=== PATIENT | male | born 1940 | race Hispanic/Latino ===

== ENCOUNTER 2017-07-27 14:07 | Outpatient (CLI) | payer MEDICARE ==
[~2017-07-27 14:07] MED LIST: FLAGYL 500 MG/100 ML 500 MG/100 ML BAG IV NR
--- NOTE | 2017-07-27 15:17 | Ultrasound Report ---
Scrotal ultrasound including Doppler interrogation. History: Scrotal pain. Findings: The testicles appear normal in size and configuration with no evidence of testicular mass. There is normal blood flow to both testes. There are bilateral hydroceles, much larger on the right. The right hydrocele measures 6 x 8 cm. The left epididymis is prominent in the region of both the head and body. Impression: 1. Enlargement of the left epididymis consistent with epididymitis. 2. Bilateral hydroceles, much larger on the right.
== END 2017-07-27 14:08 | disposition home or self-care (01) ==
LOC: US 14:07
PROVIDERS: ATTEND Urology
DX: N43.3 Hydrocele, unspecified (principal); N50.82 Scrotal pain; N50.89 Other specified disorders of the male genital organs; J44.9 Chronic obstructive pulmonary disease, unspecified; I10 Essential (primary) hypertension; Z87.891 Personal history of nicotine dependence
CPT/HCPCS: 93975

== ENCOUNTER 2017-11-03 05:07 | Inpatient (IN) | payer MEDICARE ==
[2017-11-03 05:45] LABS: Basophils % (Auto) 0.1 % (0.0-1.8); Eosinophils % (Auto) 0.3 % (0.0-4.3); Hematocrit 38.8 % (35.5-45.6); Hemoglobin 12.1 gm/dl (11.8-15.2); Mean Corpuscular HGB Conc 31 % (32-34); Mean Corpuscular Hemoglobin 27 pg (28-32); Mean Corpuscular Volume 87 fl (84-94); Platelet Count 220 K/mm3 (140-440); Red Blood Count 4.47 M/mm3 (3.65-5.03); Red Cell Distribution Width 16.8 % (13.2-15.2); White Blood Count 13.1 K/mm3 (4.5-11.0)
--- NOTE | 2017-11-03 05:52 | XRay Report ---
FINAL REPORT EXAM: XR CHEST 1V AP HISTORY: Shortness of breath TECHNIQUE: AP portable view(s) of the chest obtained. PRIORS: None. FINDINGS: No mediastinal shift. Cardiac silhouette is not enlarged. No pneumothorax or effusion. Ill-defined bibasilar opacities. No acute skeletal finding. IMPRESSION: Ill-defined bibasilar opacities may represent atelectasis or infection.
[2017-11-03] MEDS ORDERED: NACL 0.9% 500 ML 500 ML IV ONE (05:54)
[2017-11-03 06:04] LABS: Anion Gap 19 mmol/L; BUN/Creatinine Ratio 38; Blood Urea Nitrogen 23 mg/dL (9-20); Calcium 8.5 mg/dL (8.4-10.2); Carbon Dioxide 28 mmol/L (22-30); Chloride 100.1 mmol/L (98-107); Glucose 126 mg/dL (75-100); Potassium 5.1 mmol/L (3.6-5.0); Sodium 142 mmol/L (137-145)
[2017-11-03 06:17] LABS: ISTAT Base Excess 4; ISTAT HCO3 32.2; ISTAT PCO2 84.1 (35-45); ISTAT PH 7.191 (7.35-7.45); ISTAT PO2 84 (80-105); ISTAT SO2 92; ISTAT TCO2 35
[2017-11-03] MEDS ORDERED: LEVAQUIN 750MG/150ML 750 MG/150 ML BAG IV ONE (06:32)
[2017-11-03] MEDS ORDERED: NACL 0.9% 1000 ML IV ONE (06:32)
[2017-11-03] MEDS ORDERED: ARTIFICIAL TEARS OPHTH OINT OU PRN (06:33)
[2017-11-03] MEDS ORDERED: VASELINE LIP THERAPY TP PRN (06:33)
[2017-11-03] MEDS ORDERED: ATIVAN IV PRN (06:33)
[2017-11-03] MEDS ORDERED: PROVENTIL IH ONE (06:35)
[2017-11-03] MEDS ORDERED: ATROVENT IH ONE (06:35)
[2017-11-03] MEDS ORDERED: MAGNESIUM SULFATE 2GM/50ML 2 GM/50 ML BAG IV ONE (06:35)
--- NOTE | 2017-11-03 06:36 | Emergency Department Report ---
ED General Adult HPI - General Chief complaint: Dyspnea/Respdistress Stated complaint: ELAINA Time Seen by Provider: 11/03/17 06:13 Source: EMS (ems notes not available at time of chart dictation), RN notes reviewed Mode of arrival: Stretcher Limitations: Altered Mental Status, Physical Limitation - History of Present Illness Initial comments: This is a 77-year-old male from a local [place] who is brought to the hospital by EMS for respiratory distress. When this provider interviews the patient, the patient is altered, obtunded and on a BiPAP machine. His initial chest x-ray suggested pneumonia, and the patient was intubated by myself for airway protection and respiratory failure. The patient was unable to describe the qualitative nature of his symptoms, exacerbating or relieving factors. Postintubation, the patient was ventilated the lung protective strategy, and treated empirically for pulmonary sepsis. The case was presented to the ICU physician, Dr. Sharma, who agreed with placement into the intensive care unit, and presented to the hospital nurse practitioner, Aixa Brock; she accepted the patient to the medical service. -: unknown Radiation: other (as per history of present illness) Severity scale (0 -10): 3 Quality: other (as per history of present illness) Improves with: other (History of present illness) Worsens with: other (as per history of present illness) Associated Symptoms: confusion, shortness of breath, weakness, other (as per history of present illness) - Related Data Home Medications Medication Instructions Recorded Confirmed Last Taken ALPRAZolam [Xanax TAB] 0.5 mg PO TID 02/21/15 07/29/17 Unknown Gabapentin 300 mg PO BID 02/21/15 07/29/17 Unknown Methadone 10 mg PO TID 02/21/15 07/29/17 Unknown Potassium Chloride 10 meq PO QDAY 02/21/15 07/29/17 Unknown Tamsulosin 0.4 mg PO DAILY 02/21/15 07/29/17 Unknown Torsemide [Demadex] 20 mg PO DAILY 02/21/15 07/29/17 Unknown Ventolin HFA 2 puff IH PRN PRN 02/21/15 07/29/17 Unknown Verapamil ER [Calan SR] 240 mg PO DAILY 02/21/15 07/29/17 Unknown Previous Rx's Medication Instructions Recorded Last Taken Type Budesonide [Pulmicort Flexhaler] 1 inhalation IH BID #1 aer.[email or web address] 02/26/15 Unknown Rx Prednisone 10 mg PO QDAY #21 tablet 02/26/15 Unknown Rx Bisacodyl [Dulcolax suppos] 10 mg UT QDAY PRN #30 supp.rect 08/03/17 Unknown Rx Magnesium Citrate [Citrate of 300 ml PO QDAY PRN 30 Days bottle 08/03/17 Unknown Rx Magnesia] Allergies Allergy/AdvReac Type Severity Reaction Status Date / Time Penicillins Allergy Mild Itching Verified 02/21/15 18:30 doxycycline Allergy Hives Verified 11/03/17 05:18 Sulfa (Sulfonamide Allergy Hives Verified 11/03/17 05:18 Antibiotics) sulfamethoxazole Allergy Hives Verified 11/03/17 05:18 [From Bactrim] trimethoprim [From Bactrim] Allergy Hives Verified 11/03/17 05:18 ED Review of Systems ROS: Stated complaint: ELAINA Other details as noted in HPI Comment: Unobtainable due to pts medical conditions ED Past Medical Hx - Past Medical History Previous Medical History?: Yes Hx Hypertension: Yes Hx Arthritis: Yes Hx COPD: Yes Additional medical history: chronic back pain - Surgical History Past Surgical History?: Yes Hx Coronary Stent: No Hx Open Heart Surgery: No Hx Pacemaker: No Hx Internal Defibrillator: No Hx Cholecystectomy: No Hx Appendectomy: No Hx Breast Surgery: No Additional Surgical History: WES - Social History Smoking Status: Former Smoker Substance Use Type: None - Medications Home Medications: Home Medications Medication Instructions Recorded Confirmed Last Taken Type ALPRAZolam [Xanax TAB] 0.5 mg PO TID 02/21/15 07/29/17 Unknown History Gabapentin 300 mg PO BID 02/21/15 07/29/17 Unknown History Methadone 10 mg PO TID 02/21/15 07/29/17 Unknown History Potassium Chloride 10 meq PO QDAY 02/21/15 07/29/17 Unknown History Tamsulosin 0.4 mg PO DAILY 02/21/15 07/29/17 Unknown History Torsemide [Demadex] 20 mg PO DAILY 02/21/15 07/29/17 Unknown History Ventolin HFA 2 puff IH PRN PRN 02/21/15 07/29/17 Unknown History Verapamil ER [Calan SR] 240 mg PO DAILY 02/21/15 07/29/17 Unknown History Budesonide [Pulmicort Flexhaler] 1 inhalation IH BID #1 aer.pow.ba 02/26/1512/14 Unknown Rx Prednisone 10 mg PO QDAY #21 tablet 02/26/15 07/29/17 Unknown Rx Bisacodyl [Dulcolax suppos] 10 mg UT QDAY PRN #30 supp.rect 08/03/17 Unknown Rx Magnesium Citrate [Citrate of 300 ml PO QDAY PRN 30 Days bottle 08/03/17 Unknown Rx Magnesia] ED Physical Exam - General Limitations: Physical Limitation General appearance: obtunded, in distress - Head Head exam: Present: atraumatic, normocephalic - Eye Eye exam: Present: normal appearance - ENT ENT exam: Present: mucous membranes dry - Neck Neck exam: Present: normal inspection - Respiratory Respiratory exam: Present: respiratory distress, rhonchi - Cardiovascular Cardiovascular Exam: Present: normal rhythm, tachycardia, normal heart sounds. Absent: systolic murmur, diastolic murmur, rubs, gallop - GI/Abdominal GI/Abdominal exam: Present: soft, normal bowel sounds. Absent: distended, tenderness, guarding, rebound, rigid, pulsatile mass - Rectal Rectal exam: Present: deferred - exam: Present: normal inspection - Extremities Exam Extremities exam: Present: normal inspection - Back Exam Back exam: Present: normal inspection. Absent: paraspinal tenderness, vertebral tenderness - Neurological Exam Neurological exam: Present: altered - Psychiatric Psychiatric exam: Present: other (patient nonverbal) - Skin Skin exam: Present: warm, dry, intact, normal color. Absent: rash ED Course Vital Signs 11/03/17 11/03/17 11/03/17 05:14 05:15 05:18 Temperature Pulse Rate 118 H 111 H Respiratory 22 25 H Rate Blood Pressure Blood Pressure [Left] O2 Sat by Pulse 100 Oximetry 11/03/17 11/03/17 11/03/17 05:20 05:30 05:35 Temperature Pulse Rate 111 H Respiratory 25 H 14 Rate Blood Pressure 141/70 141/70 Blood Pressure [Left] O2 Sat by Pulse 96 94 99 Oximetry 11/03/17 11/03/17 11/03/17 05:45 05:46 06:00 Temperature 99 F Pulse Rate 107 H 107 H 106 H Respiratory 14 14 13 Rate Blood Pressure 127/67 127/60 Blood Pressure 141/70 [Left] O2 Sat by Pulse 98 96 Oximetry 11/03/17 11/03/17 11/03/17 06:15 06:30 06:45 Temperature Pulse Rate 104 H 107 H 117 H Respiratory 16 15 19 Rate Blood Pressure 127/60 120/62 146/71 Blood Pressure [Left] O2 Sat by Pulse 96 100 98 Oximetry 11/03/17 11/03/17 11/03/17 07:00 07:15 07:30 Temperature Pulse Rate 106 H 107 H 110 H Respiratory 18 18 18 Rate Blood Pressure 143/71 150/78 151/76 Blood Pressure [Left] O2 Sat by Pulse 99 99 97 Oximetry 11/03/17 11/03/17 11/03/17 07:45 08:00 08:15 Temperature Pulse Rate 101 H 103 H 96 H Respiratory 26 H 27 H 30 H Rate Blood Pressure 139/70 144/76 134/68 Blood Pressure [Left] O2 Sat by Pulse 98 99 100 Oximetry 11/03/17 11/03/17 08:30 08:40 Temperature 98.3 F Pulse Rate 96 H Respiratory 18 Rate Blood Pressure 140/71 Blood Pressure [Left] O2 Sat by Pulse 100 Oximetry - Reevaluation(s) Reevaluation #1: 11/03/17 09:43 Patient reassessed multiple times post intubation the ER, he has been intubated and sedated, and has been hemodynamically stable. Awaiting placement to the intensive care unit. - Intubation Time Out Performed: Yes Sedative: Ketamine Mg Given: 150 Paralytic: Rocuronium Mg Given: 100 Laryngoscope: Amarilys Size: 4 ET Tube Size: 7.5 Tube Secured Depth (cm): 24 Tube Secured Location: lips Tube Placement Confirmation: visualized tube passing t, equal breath sounds bilat, no breath sounds over epi, confirmation by capnometr Patient Tolerated Procedure: well Intubation Complications: none Additional Comments: Prior to intubation, the patient is preoxygenated with the BiPAP under my direct supervision. He is induced with ketamine, transitioned to nasal cannula , 15 L, and receives [id number] ventilation. He is then paralyzed with rocuronium, and a 7.5 endotracheal tube is inserted by myself using direct laryngoscopy, with one attempt and no obvious complications. The patient tolerated the procedure well. ED Medical Decision Making - Lab Data Result diagrams: 11/03/17 05:31 11/03/17 07:12 Vital Signs 11/03/17 11/03/17 11/03/17 05:14 05:15 05:18 Temperature Pulse Rate 118 H 111 H Respiratory 22 25 H Rate Blood Pressure Blood Pressure [Left] O2 Sat by Pulse 100 Oximetry 11/03/17 11/03/17 11/03/17 05:20 05:30 05:35 Temperature Pulse Rate 111 H Respiratory 25 H 14 Rate Blood Pressure 141/70 141/70 Blood Pressure [Left] O2 Sat by Pulse 96 94 99 Oximetry 11/03/17 11/03/17 11/03/17 05:45 05:46 06:00 Temperature 99 F Pulse Rate 107 H 107 H 106 H Respiratory 14 14 13 Rate Blood Pressure 127/67 127/60 Blood Pressure 141/70 [Left] O2 Sat by Pulse 98 96 Oximetry 11/03/17 11/03/17 11/03/17 06:15 06:30 06:45 Temperature Pulse Rate 104 H 107 H 117 H Respiratory 16 15 19 Rate Blood Pressure 127/60 120/62 146/71 Blood Pressure [Left] O2 Sat by Pulse 96 100 98 Oximetry 11/03/17 11/03/17 11/03/17 07:00 07:15 07:30 Temperature Pulse Rate 106 H 107 H 110 H Respiratory 18 18 18 Rate Blood Pressure 143/71 150/78 151/76 Blood Pressure [Left] O2 Sat by Pulse 99 99 97 Oximetry 11/03/17 11/03/17 11/03/17 07:45 08:00 08:15 Temperature Pulse Rate 101 H 103 H 96 H Respiratory 26 H 27 H 30 H Rate Blood Pressure 139/70 144/76 134/68 Blood Pressure [Left] O2 Sat by Pulse 98 99 100 Oximetry 11/03/17 11/03/17 08:30 08:40 Temperature 98.3 F Pulse Rate 96 H Respiratory 18 Rate Blood Pressure 140/71 Blood Pressure [Left] O2 Sat by Pulse 100 Oximetry Lab Results 11/03/17 11/03/17 11/03/17 Range/Units 05:31 05:31 06:10 WBC 13.1 H (4.5-11.0) K/mm3 RBC 4.47 (3.65-5.03) M/mm3 Hgb 12.1 (11.8-15.2) gm/dl Hct 38.8 (35.5-45.6) % MCV 87 (84-94) fl MCH 27 L (28-32) pg MCHC 31 L (32-34) % RDW 16.8 H (13.2-15.2) % Plt Count 220 (140-440) K/mm3 Lymph % (Auto) 8.6 L (13.4-35.0) % [place] % (Auto) 10.9 H (0.0-7.3) % Eos % (Auto) 0.3 (0.0-4.3) % Baso % (Auto) 0.1 (0.0-1.8) % Lymph # 1.1 L (1.2-5.4) K/mm3 [place] # 1.4 H (0.0-0.8) K/mm3 Eos # 0.0 (0.0-0.4) K/mm3 Baso # 0.0 (0.0-0.1) K/mm3 Seg Neutrophils % 80.1 H (40.0-70.0) % Seg Neutrophils # 10.5 H (1.8-7.7) K/mm3 PT (12.2-14.9) Sec. INR (0.87-1.13) POC ABG pH 7.191 L (7.35-7.45) POC ABG pCO2 84.1 H (35-45) POC ABG pO2 84 (80-105) POC ABG HCO3 32.2 POC ABG Total CO2 35 POC ABG O2 Sat 92 POC ABG Base Excess 4 VBG pH (7.320-7.420) FiO2 60 % Sodium 142 (137-145) mmol/L Potassium 5.1 H (3.6-5.0) mmol/L Chloride 100.1 (98-107) mmol/L Carbon Dioxide 28 (22-30) mmol/L Anion Gap 19 mmol/L BUN 23 H (9-20) mg/dL Creatinine 0.6 L (0.8-1.5) mg/dL Estimated GFR > 60 ml/min BUN/Creatinine Ratio 38 % Glucose 126 H (75-100) mg/dL Lactic Acid (0.7-2.0) mmol/L Calcium 8.5 (8.4-10.2) mg/dL Total Bilirubin (0.1-1.2) mg/dL AST (5-40) units/L ALT (7-56) units/L Alkaline Phosphatase (35-129) units/L Troponin T 0.015 (0.00-0.029) ng/mL Total Protein (6.3-8.2) g/dL Albumin (3.9-5) g/dL Albumin/Globulin Ratio % Urine Color (Yellow) Urine Turbidity (Clear) Urine pH (5.0-7.0) Ur Specific [place] (1.003-1.030) Urine Protein (Negative) mg/dL Urine Glucose (UA) (Negative) mg/dL Urine Ketones (Negative) mg/dL Urine Blood (Negative) Urine Nitrite (Negative) Urine Bilirubin (Negative) Urine Urobilinogen (<2.0) mg/dL Ur Leukocyte Esterase (Negative) Urine WBC (Auto) (0.0-6.0) /HPF Urine RBC (Auto) (0.0-6.0) /HPF U Epithel Cells (Auto) (0-13.0) /HPF Hyaline Casts /LPF Urine Mucus /HPF 11/03/17 11/03/17 11/03/17 Range/Units 07:12 07:12 07:12 WBC (4.5-11.0) K/mm3 RBC (3.65-5.03) M/mm3 Hgb (11.8-15.2) gm/dl Hct (35.5-45.6) % MCV (84-94) fl MCH (28-32) pg MCHC (32-34) % RDW (13.2-15.2) % Plt Count (140-440) K/mm3 Lymph % (Auto) (13.4-35.0) % [place] % (Auto) (0.0-7.3) % Eos % (Auto) (0.0-4.3) % Baso % (Auto) (0.0-1.8) % Lymph # (1.2-5.4) K/mm3 [place] # (0.0-0.8) K/mm3 Eos # (0.0-0.4) K/mm3 Baso # (0.0-0.1) K/mm3 Seg Neutrophils % (40.0-70.0) % Seg Neutrophils # (1.8-7.7) K/mm3 PT 13.8 (12.2-14.9) Sec. INR 1.01 (0.87-1.13) POC ABG pH (7.35-7.45) POC ABG pCO2 (35-45) POC ABG pO2 (80-105) POC ABG HCO3 POC ABG Total CO2 POC ABG O2 Sat POC ABG Base Excess VBG pH (7.320-7.420) FiO2 % Sodium 140 (137-145) mmol/L Potassium 4.8 (3.6-5.0) mmol/L Chloride 99.9 (98-107) mmol/L Carbon Dioxide 27 (22-30) mmol/L Anion Gap 18 mmol/L BUN 23 H (9-20) mg/dL Creatinine 0.6 L (0.8-1.5) mg/dL Estimated GFR > 60 ml/min BUN/Creatinine Ratio 38 % Glucose 129 H (75-100) mg/dL Lactic Acid 0.80 (0.7-2.0) mmol/L Calcium 8.4 (8.4-10.2) mg/dL Total Bilirubin 0.30 (0.1-1.2) mg/dL AST 17 (5-40) units/L ALT 12 (7-56) units/L Alkaline Phosphatase 97 (35-129) units/L Troponin T (0.00-0.029) ng/mL Total Protein 7.1 (6.3-8.2) g/dL Albumin 3.6 L (3.9-5) g/dL Albumin/Globulin Ratio 1.0 % Urine Color (Yellow) Urine Turbidity (Clear) Urine pH (5.0-7.0) Ur Specific [place] (1.003-1.030) Urine Protein (Negative) mg/dL Urine Glucose (UA) (Negative) mg/dL Urine Ketones (Negative) mg/dL Urine Blood (Negative) Urine Nitrite (Negative) Urine Bilirubin (Negative) Urine Urobilinogen (<2.0) mg/dL Ur Leukocyte Esterase (Negative) Urine WBC (Auto) (0.0-6.0) /HPF Urine RBC (Auto) (0.0-6.0) /HPF U Epithel Cells (Auto) (0-13.0) /HPF Hyaline Casts /LPF Urine Mucus /HPF 11/03/17 11/03/17 11/03/17 Range/Units 07:12 07:34 Unknown WBC (4.5-11.0) K/mm3 RBC (3.65-5.03) M/mm3 Hgb (11.8-15.2) gm/dl Hct (35.5-45.6) % MCV (84-94) fl MCH (28-32) pg MCHC (32-34) % RDW (13.2-15.2) % Plt Count (140-440) K/mm3 Lymph % (Auto) (13.4-35.0) % [place] % (Auto) (0.0-7.3) % Eos % (Auto) (0.0-4.3) % Baso % (Auto) (0.0-1.8) % Lymph # (1.2-5.4) K/mm3 [place] # (0.0-0.8) K/mm3 Eos # (0.0-0.4) K/mm3 Baso # (0.0-0.1) K/mm3 Seg Neutrophils % (40.0-70.0) % Seg Neutrophils # (1.8-7.7) K/mm3 PT (12.2-14.9) Sec. INR (0.87-1.13) POC ABG pH 7.294 L (7.35-7.45) POC ABG pCO2 65.0 H (35-45) POC ABG pO2 67 L (80-105) POC ABG HCO3 31.5 POC ABG Total CO2 33 POC ABG O2 Sat 90 POC ABG Base Excess 5 VBG pH 7.318 L (7.320-7.420) FiO2 60 % Sodium (137-145) mmol/L Potassium (3.6-5.0) mmol/L Chloride (98-107) mmol/L Carbon Dioxide (22-30) mmol/L Anion Gap mmol/L BUN (9-20) mg/dL Creatinine (0.8-1.5) mg/dL Estimated GFR ml/min BUN/Creatinine Ratio % Glucose (75-100) mg/dL Lactic Acid (0.7-2.0) mmol/L Calcium (8.4-10.2) mg/dL Total Bilirubin (0.1-1.2) mg/dL AST (5-40) units/L ALT (7-56) units/L Alkaline Phosphatase (35-129) units/L Troponin T (0.00-0.029) ng/mL Total Protein (6.3-8.2) g/dL Albumin (3.9-5) g/dL Albumin/Globulin Ratio % Urine Color Yellow (Yellow) Urine Turbidity Clear (Clear) Urine pH 5.0 (5.0-7.0) Ur Specific [place] 1.018 (1.003-1.030) Urine Protein <15 mg/dl (Negative) mg/dL Urine Glucose (UA) Neg (Negative) mg/dL Urine Ketones Tr (Negative) mg/dL Urine Blood Neg (Negative) Urine Nitrite Neg (Negative) Urine Bilirubin Neg (Negative) Urine Urobilinogen < 2.0 (<2.0) mg/dL Ur Leukocyte Esterase Neg (Negative) Urine WBC (Auto) 1.0 (0.0-6.0) /HPF Urine RBC (Auto) 1.0 (0.0-6.0) /HPF U Epithel Cells (Auto) < 1.0 (0-13.0) /HPF Hyaline Casts 1 /LPF Urine Mucus Few /HPF - EKG Data -: EKG Interpreted by In - EKG Data 11/03/17 09:42 Sinus tachycardia, 114 beats per minute, normal axis, motion artifact, not morphologically consistent with ST elevation myocardial infarction - Radiology Data Radiology results: report reviewed, image reviewed Ordering Physician: JOSE A CRUZ MD Date of Service: 11/03/17 Procedure(s): XR chest 1V ap Accession Number(s): [id number] cc: JOSE A CRUZ MD Fluoro Time In Minutes: FINAL REPORT EXAM: XR CHEST 1V AP HISTORY: intubation TECHNIQUE: AP portable view(s) of the chest obtained. PRIORS: Earlier examination of the same date. FINDINGS: Endotracheal tube terminates approximately 4-5 cm from the justin. No mediastinal shift. Cardiac silhouette is not enlarged. No pneumothorax or significant effusion. Bibasilar opacities again noted. IMPRESSION: Satisfactory appearance of endotracheal tube without pneumothorax. Transcribed By: VLADISLAV Dictated By: JOSE A SY MD Electronically Authenticated By: JOSE A SY MD Signed Date/Time: 11/03/17 0259 Critical Care Time: Yes Critical care time in (mins) excluding proc time.: 45 Critical care attestation.: If time is entered above; I have spent that time in minutes in the direct care of this critically ill patient, excluding procedure time. ED Disposition Clinical Impression: Respiratory failure Disposition: OP ADMIT IP TO THIS HOSP Is pt being admited?: Yes Condition: Critical
[2017-11-03] MEDS ORDERED: NACL 0.9% 500 ML IV SCH (07:00)
--- NOTE | 2017-11-03 07:02 | XRay Report ---
FINAL REPORT EXAM: XR CHEST 1V AP HISTORY: intubation TECHNIQUE: AP portable view(s) of the chest obtained. PRIORS: Earlier examination of the same date. FINDINGS: Endotracheal tube terminates approximately 4-5 cm from the justin. No mediastinal shift. Cardiac silhouette is not enlarged. No pneumothorax or significant effusion. Bibasilar opacities again noted. IMPRESSION: Satisfactory appearance of endotracheal tube without pneumothorax.
[2017-11-03 07:40] LABS: Bilirubin,Urine NEG (Negative); Blood,Urine NEG (Negative); Ketones,Urine TR mg/dL (Negative); Leukocyte Esterase,Urine NEG (Negative); Mucus,Urine FEW /HPF; Nitrite,Urine NEG (Negative); Protein,Urine <15 mg/dL mg/dL (Negative); Urobilinogen,Urine < 2.0 mg/dL (<2.0)
[2017-11-03] MEDS: fentaNYL DRIP Premix 2,000 MCG/100 ML BAG IV SCH ×2 (07:50→16:20)
[2017-11-03 07:55] LABS: INR 1.01 (0.87-1.13)
[2017-11-03 07:57] LABS: Alanine Aminotransferase 12 units/L (7-56); Albumin 3.6 g/dL (3.9-5); Alkaline Phosphatase 97 units/L (35-129); Anion Gap 18 mmol/L; BUN/Creatinine Ratio 38; Blood Urea Nitrogen 23 mg/dL (9-20); Calcium 8.4 mg/dL (8.4-10.2); Carbon Dioxide 27 mmol/L (22-30); Chloride 99.9 mmol/L (98-107); Glucose 129 mg/dL (75-100); Potassium 4.8 mmol/L (3.6-5.0); Sodium 140 mmol/L (137-145); Total Protein 7.1 g/dL (6.3-8.2)
[2017-11-03 08:13] LABS: ISTAT Base Excess 5; ISTAT HCO3 31.5; ISTAT PH 7.294 (7.35-7.45); ISTAT PO2 67 (80-105); ISTAT SO2 90; ISTAT TCO2 33
[2017-11-03] MEDS ORDERED: PROVENTIL IH PRN (09:10)
[2017-11-03] MEDS ORDERED: TYLENOL PO PRN (09:10)
--- NOTE | 2017-11-03 09:15 | History and Physical Report ---
<BANDAR CHOWDHURY - Last Filed: 11/03/17 13:32> History of Present Illness Date of examination: 11/03/17 Date of admission: 11/03/2017 Chief complaint: Acute respiratory failure History of present illness: Patient is a 74-year-old male from [facility] with history of hypertension OA, COPD, illicit drug use, hypertension brought to the ED via EMS for evaluation of respiratory distress. Patient is currently intubated and sedated; therefore unable to obtain detailed history. Per ER physician and charts Patient lives in local detention who is brought to the hospital by EMS for respiratory distress. Patient found to have pneumonia and COPD exacerbation unable to protect his airway.Patient intubated and placed on vent support. NO family practice of fever, syncope, trauma, seizure, no soft bowel or bladder continence was sent recent ill contacts. Past History Past Medical History: COPD, hypertension, other (OA and illicit drug us) Past Surgical History: Other (Unable to obtian due to patient's mental status ) Social history: other (Unable to obtian due to patient's mental status ) Family history: other (Unable to obtian due to patient's mental status ) Medications and Allergies Allergies Allergy/AdvReac Type Severity Reaction Status Date / Time Penicillins Allergy Mild Itching Verified 02/21/15 18:30 doxycycline Allergy Hives Verified 11/03/17 05:18 Sulfa (Sulfonamide Allergy Hives Verified 11/03/17 05:18 Antibiotics) sulfamethoxazole Allergy Hives Verified 11/03/17 05:18 [From Bactrim] trimethoprim [From Bactrim] Allergy Hives Verified 11/03/17 05:18 Home Medications Medication Instructions Recorded Confirmed Last Taken Type Prednisone 10 mg PO QDAY #21 tablet 02/26/15 11/03/17 Unknown Rx Aspirin [Adult Low Dose Aspirin EC] 81 mg PO DAILY 11/03/17 11/03/17 Unknown History Atorvastatin Calcium [Lipitor] 10 mg PO DAILY 11/03/17 11/03/17 Unknown History Benzonatate [Tessalon Perle] 100 mg PO TID 11/03/17 11/03/17 Unknown History Diphenhydramine HCl [Complete 25 mg PO Q6H PRN 11/03/17 11/03/17 Unknown History Allergy] Fluticasone [Flonase] 1 spray NS QDAY 11/03/17 11/03/17 Unknown History Furosemide [Lasix] 20 mg PO QDAY 11/03/17 11/03/17 Unknown History Gabapentin [Neurontin] 100 mg PO Q8HR 11/03/17 11/03/17 Unknown History Lisinopril [Zestril TAB] 2.5 mg PO QDAY 11/03/17 11/03/17 Unknown History Methadone [Dolophine] 20 mg PO Q8H 11/03/17 11/03/17 Unknown History Metoprolol Tartrate 25 mg PO BID 11/03/17 11/03/17 Unknown History Polyethylene Glycol 3350 [Miralax 17 gm PO QDAY 11/03/17 11/03/17 Unknown History 3350] Tamsulosin [Flomax] 0.4 mg PO QDAY 11/03/17 11/03/17 Unknown History amLODIPine [Norvasc] 5 mg PO DAILY 11/03/17 11/03/17 Unknown History Active Meds: Active Medications Acetaminophen (Tylenol) 650 mg PO Q4H PRN PRN Reason: Pain MILD(1-3)/Fever >100.5/FLANAGAN Albuterol (Proventil) 2.5 mg IH Q4HRT PRN PRN Reason: Shortness Of Breath Albuterol/Ipratropium (Duoneb *Not For Prn Use*) 1 ampul IH Q6HRT [facility] Bisacodyl (Dulcolax) 10 mg SD QDAY PRN PRN Reason: Constipation unrelieved by MOM Enoxaparin Sodium (Lovenox) 40 mg SUB-Q QDAY [facility] Hydrophilic Ointment (Vaseline Lip Therapy) 1 applic TP Q2HR PRN PRN Reason: Dry Lips Fentanyl Citrate (Fentanyl Drip Premix) 2,000 mcg in 100 mls @ 3.719 mls/hr IV TITR KRISTY; 1 MCG/KG/HR PRN Reason: Protocol Last Admin: 11/03/17 07:50 Dose: 2 mcg/kg/hr, 7.439 mls/hr Levofloxacin/Dextrose (Levaquin 750mg/150ml) 750 mg in 150 mls @ 100 mls/hr IV Q24HR KRISTY PRN Reason: Protocol Lorazepam (Ativan) 2 mg IV Q4HR PRN PRN Reason: Agitation Morphine Sulfate (Morphine) 2 mg IV Q4H PRN PRN Reason: Pain, Moderate (4-6) Multi-Ingred Cream/Lotion/Oil/Oint (Artificial Tears Ophth Oint) 1 applic OU Q4HR PRN PRN Reason: Dry Eye(s) Sodium Chloride (Nacl 0.9% 500 Ml) 1 ml IV DIRECT KRISTY Review of Systems ROS unobtainable: due to mental status (Unable to obtian due to patient's mental status ) Exam - Constitutional Vitals: Temp Pulse Resp BP Pulse Ox 98.3 F 96 H 18 140/71 100 11/03/17 08:40 11/03/17 08:30 11/03/17 08:30 11/03/17 08:30 11/03/17 08:30 General appearance: Present: no acute distress - EENT Eyes: Present: PERRL ENT: hearing intact - Neck Neck: Present: supple - Respiratory Respiratory effort: normal Respiratory: bilateral: rhonchi, wheezing - Cardiovascular Rhythm: regular Heart Sounds: Present: S1 & S2 - Abdominal General gastrointestinal: Present: soft, non-tender Male genitourinary: Present: deferred - Rectal Rectal Exam: deferred - Integumentary Integumentary: Present: clear, warm, dry - Musculoskeletal Musculoskeletal: strength equal bilaterally - Psychiatric Psychiatric: appropriate mood/affect - Neurologic Neurologic: moves all extremities - Allied Health Allied health notes reviewed: nursing Results - Labs CBC & Chem 7: 11/03/17 05:31 11/03/17 07:12 Labs: Laboratory Last Values WBC 13.1 K/mm3 (4.5-11.0) H 11/03/17 05:31 RBC 4.47 M/mm3 (3.65-5.03) 11/03/17 05:31 Hgb 12.1 gm/dl (11.8-15.2) 11/03/17 05:31 Hct 38.8 % (35.5-45.6) 11/03/17 05:31 MCV 87 fl (84-94) 11/03/17 05:31 MCH 27 pg (28-32) L 11/03/17 05:31 MCHC 31 % (32-34) L 11/03/17 05:31 RDW 16.8 % (13.2-15.2) H 11/03/17 05:31 Plt Count 220 K/mm3 (140-440) 11/03/17 05:31 Lymph % (Auto) 8.6 % (13.4-35.0) L 11/03/17 05:31 [place] % (Auto) 10.9 % (0.0-7.3) H 11/03/17 05:31 Eos % (Auto) 0.3 % (0.0-4.3) 11/03/17 05:31 Baso % (Auto) 0.1 % (0.0-1.8) 11/03/17 05:31 Lymph # 1.1 K/mm3 (1.2-5.4) L 11/03/17 05:31 [place] # 1.4 K/mm3 (0.0-0.8) H 11/03/17 05:31 Eos # 0.0 K/mm3 (0.0-0.4) 11/03/17 05:31 Baso # 0.0 K/mm3 (0.0-0.1) 11/03/17 05:31 Seg Neutrophils % 80.1 % (40.0-70.0) H 11/03/17 05:31 Seg Neutrophils # 10.5 K/mm3 (1.8-7.7) H 11/03/17 05:31 PT 13.8 Sec. (12.2-14.9) 11/03/17 07:12 INR 1.01 (0.87-1.13) 11/03/17 07:12 POC ABG pH 7.294 (7.35-7.45) L 11/03/17 07:34 POC ABG pCO2 65.0 (35-45) H 11/03/17 07:34 POC ABG pO2 67 (80-105) L 11/03/17 07:34 POC ABG HCO3 31.5 11/03/17 07:34 POC ABG Total CO2 33 11/03/17 07:34 POC ABG O2 Sat 90 11/03/17 07:34 POC ABG Base Excess 5 11/03/17 07:34 VBG pH 7.318 (7.320-7.420) L 11/03/17 07:12 FiO2 60 % 11/03/17 07:34 Sodium 140 mmol/L (137-145) 11/03/17 07:12 Potassium 4.8 mmol/L (3.6-5.0) 11/03/17 07:12 Chloride 99.9 mmol/L (98-107) 11/03/17 07:12 Carbon Dioxide 27 mmol/L (22-30) 11/03/17 07:12 Anion Gap 18 mmol/L 11/03/17 07:12 BUN 23 mg/dL (9-20) H 11/03/17 07:12 Creatinine 0.6 mg/dL (0.8-1.5) L 11/03/17 07:12 Estimated GFR > 60 ml/min 11/03/17 07:12 BUN/Creatinine Ratio 38 % 11/03/17 07:12 Glucose 129 mg/dL (75-100) H 11/03/17 07:12 Lactic Acid 0.80 mmol/L (0.7-2.0) 11/03/17 07:12 Calcium 8.4 mg/dL (8.4-10.2) 11/03/17 07:12 Total Bilirubin 0.30 mg/dL (0.1-1.2) 11/03/17 07:12 AST 17 units/L (5-40) 11/03/17 07:12 ALT 12 units/L (7-56) 11/03/17 07:12 Alkaline Phosphatase 97 units/L (35-129) 11/03/17 07:12 Troponin T 0.015 ng/mL (0.00-0.029) 11/03/17 05:31 Total Protein 7.1 g/dL (6.3-8.2) 11/03/17 07:12 Albumin 3.6 g/dL (3.9-5) L 11/03/17 07:12 Albumin/Globulin Ratio 1.0 % 11/03/17 07:12 Urine Color Yellow (Yellow) 11/03/17 Unknown Urine Turbidity Clear (Clear) 11/03/17 Unknown Urine pH 5.0 (5.0-7.0) 11/03/17 Unknown Ur Specific [place] 1.018 (1.003-1.030) 11/03/17 Unknown Urine Protein <15 mg/dl mg/dL (Negative) 11/03/17 Unknown Urine Glucose (UA) Neg mg/dL (Negative) 11/03/17 Unknown Urine Ketones Tr mg/dL (Negative) 11/03/17 Unknown Urine Blood Neg (Negative) 11/03/17 Unknown Urine Nitrite Neg (Negative) 11/03/17 Unknown Urine Bilirubin Neg (Negative) 11/03/17 Unknown Urine Urobilinogen < 2.0 mg/dL (<2.0) 11/03/17 Unknown Ur Leukocyte Esterase Neg (Negative) 11/03/17 Unknown Urine WBC (Auto) 1.0 /HPF (0.0-6.0) 11/03/17 Unknown Urine RBC (Auto) 1.0 /HPF (0.0-6.0) 11/03/17 Unknown U Epithel Cells (Auto) < 1.0 /HPF (0-13.0) 11/03/17 Unknown Hyaline Casts 1 /LPF 11/03/17 Unknown Urine Mucus Few /HPF 11/03/17 Unknown - Imaging and Cardiology Chest x-ray: image reviewed (Bibasilar opacities ) Assessment and Plan Assessment and plan: Patient is a 74-year-old male from [facility] with history of hypertension OA, COPD, illicit drug use, hypertension brought to the ED via EMS for evaluation of respiratory distress. Acute respiratory failure with hypoxia Intubated and sedated. No acute respiratory distress noted. Aggressive Nebulizers/Inhalers ABG when necessary Managed By Pulmonary Supportive care Sepsis due to Pneumonia Blood and urine culture collected prior to antibiotic Follow blood cultures Initiated empiric IV Levaquin Supportive care Suspected aspiration Pneumonia Urine culture collected Initiated empiric empiric IV Levaquin Acute COPD exacerbation Continue on Duoneb every 6 hours IV steroid Solumedrol Initiated empiric IV Levaquin Oxygen as necessary Hypertensive urgency Hold home antihypertensive medications for now IV hydralazin for SBP>160 Closely monitor blood pressure Malnutrition Nutrition consult DVT prophylaxis Heparin Advance Directives: Yes VTE prophylaxis?: Chemical Contraindication Mechanical VTE Prophylaxis: Treatment Not Indicated Plan of care discussed with patient/family: Yes <CLIVE AGUAYO - Last Filed: 11/03/17 13:37> History of Present Illness Date of admission: 11/03/17 09:10 Medications and Allergies Active Meds: Active Medications Acetaminophen (Tylenol) 650 mg PO Q4H PRN PRN Reason: Pain MILD(1-3)/Fever >100.5/FLANAGAN Albuterol (Proventil) 2.5 mg IH Q4HRT PRN PRN Reason: Shortness Of Breath Albuterol/Ipratropium (Duoneb *Not For Prn Use*) 1 ampul IH Q6HRT [facility] Arformoterol Tartrate (Brovana Nebu) 15 mcg IH Q12HRT [facility] Bisacodyl (Dulcolax) 10 mg SD QDAY PRN PRN Reason: Constipation unrelieved by MOM Budesonide (Pulmicort) 0.5 mg IH Q12HRT [facility] Enoxaparin Sodium (Lovenox) 40 mg SUB-Q QDAY [facility] Last Admin: 11/03/17 12:42 Dose: 40 mg Hydrophilic Ointment (Vaseline Lip Therapy) 1 applic TP Q2HR PRN PRN Reason: Dry Lips Fentanyl Citrate (Fentanyl Drip Premix) 2,000 mcg in 100 mls @ 3.719 mls/hr IV TITR KRISTY; 1 MCG/KG/HR PRN Reason: Protocol Last Admin: 11/03/17 07:50 Dose: 2 mcg/kg/hr, 7.439 mls/hr Levofloxacin/Dextrose (Levaquin 750mg/150ml) 750 mg in 150 mls @ 100 mls/hr IV Q24HR [facility] PRN Reason: Protocol Sodium Chloride (Nacl 0.9% 1000 Ml) 1,000 mls @ 75 mls/hr IV DIRECT KRISTY Last Admin: 11/03/17 12:40 Dose: 75 mls/hr Propofol (Diprivan 10 Mg/Ml) 1,000 mg in 100 mls @ 2.232 mls/hr IV TITR KRISTY; 5 MCG/KG/MIN PRN Reason: Protocol Lorazepam (Ativan) 2 mg IV Q4HR PRN PRN Reason: Agitation Last Admin: 11/03/17 10:19 Dose: 2 mg Methylprednisolone Sodium Succinate (Solu-Medrol) 60 mg IV Q6HR [facility] Morphine Sulfate (Morphine) 2 mg IV Q4H PRN PRN Reason: Pain, Moderate (4-6) Last Admin: 11/03/17 12:42 Dose: 2 mg Multi-Ingred Cream/Lotion/Oil/Oint (Artificial Tears Ophth Oint) 1 applic OU Q4HR PRN PRN Reason: Dry Eye(s) Sodium Chloride (Nacl 0.9% 500 Ml) 1 ml IV DIRECT KRISTY Exam - Constitutional Vitals: Temp Pulse Resp BP Pulse Ox 98.3 F 109 H 17 149/78 97 11/03/17 08:40 11/03/17 13:15 11/03/17 13:15 11/03/17 13:15 11/03/17 12:30 Results - Labs CBC & Chem 7: 11/03/17 05:31 11/03/17 07:12 Labs: Laboratory Last Values WBC 13.1 K/mm3 (4.5-11.0) H 11/03/17 05:31 RBC 4.47 M/mm3 (3.65-5.03) 11/03/17 05:31 Hgb 12.1 gm/dl (11.8-15.2) 11/03/17 05:31 Hct 38.8 % (35.5-45.6) 11/03/17 05:31 MCV 87 fl (84-94) 11/03/17 05:31 MCH 27 pg (28-32) L 11/03/17 05:31 MCHC 31 % (32-34) L 11/03/17 05:31 RDW 16.8 % (13.2-15.2) H 11/03/17 05:31 Plt Count 220 K/mm3 (140-440) 11/03/17 05:31 Lymph % (Auto) 8.6 % (13.4-35.0) L 11/03/17 05:31 [place] % (Auto) 10.9 % (0.0-7.3) H 11/03/17 05:31 Eos % (Auto) 0.3 % (0.0-4.3) 11/03/17 05:31 Baso % (Auto) 0.1 % (0.0-1.8) 11/03/17 05:31 Lymph # 1.1 K/mm3 (1.2-5.4) L 11/03/17 05:31 [place] # 1.4 K/mm3 (0.0-0.8) H 11/03/17 05:31 Eos # 0.0 K/mm3 (0.0-0.4) 11/03/17 05:31 Baso # 0.0 K/mm3 (0.0-0.1) 11/03/17 05:31 Seg Neutrophils % 80.1 % (40.0-70.0) H 11/03/17 05:31 Seg Neutrophils # 10.5 K/mm3 (1.8-7.7) H 11/03/17 05:31 PT 13.8 Sec. (12.2-14.9) 11/03/17 07:12 INR 1.01 (0.87-1.13) 11/03/17 07:12 POC ABG pH 7.344 (7.35-7.45) L 11/03/17 11:50 POC ABG pCO2 53.7 (35-45) H 11/03/17 11:50 POC ABG pO2 83 (80-105) 11/03/17 11:50 POC ABG HCO3 29.2 11/03/17 11:50 POC ABG Total CO2 31 11/03/17 11:50 POC ABG O2 Sat 95 11/03/17 11:50 POC ABG Base Excess 4 11/03/17 11:50 VBG pH 7.318 (7.320-7.420) L 11/03/17 07:12 FiO2 60 % 11/03/17 11:50 Sodium 140 mmol/L (137-145) 11/03/17 07:12 Potassium 4.8 mmol/L (3.6-5.0) 11/03/17 07:12 Chloride 99.9 mmol/L (98-107) 11/03/17 07:12 Carbon Dioxide 27 mmol/L (22-30) 11/03/17 07:12 Anion Gap 18 mmol/L 11/03/17 07:12 BUN 23 mg/dL (9-20) H 11/03/17 07:12 Creatinine 0.6 mg/dL (0.8-1.5) L 11/03/17 07:12 Estimated GFR > 60 ml/min 11/03/17 07:12 BUN/Creatinine Ratio 38 % 11/03/17 07:12 Glucose 129 mg/dL (75-100) H 11/03/17 07:12 Lactic Acid 0.90 mmol/L (0.7-2.0) 11/03/17 09:30 Calcium 8.4 mg/dL (8.4-10.2) 11/03/17 07:12 Total Bilirubin 0.30 mg/dL (0.1-1.2) 11/03/17 07:12 AST 17 units/L (5-40) 11/03/17 07:12 ALT 12 units/L (7-56) 11/03/17 07:12 Alkaline Phosphatase 97 units/L (35-129) 11/03/17 07:12 Troponin T 0.015 ng/mL (0.00-0.029) 11/03/17 05:31 Total Protein 7.1 g/dL (6.3-8.2) 11/03/17 07:12 Albumin 3.6 g/dL (3.9-5) L 11/03/17 07:12 Albumin/Globulin Ratio 1.0 % 11/03/17 07:12 Urine Color Yellow (Yellow) 11/03/17 Unknown Urine Turbidity Clear (Clear) 11/03/17 Unknown Urine pH 5.0 (5.0-7.0) 11/03/17 Unknown Ur Specific [place] 1.018 (1.003-1.030) 11/03/17 Unknown Urine Protein <15 mg/dl mg/dL (Negative) 11/03/17 Unknown Urine Glucose (UA) Neg mg/dL (Negative) 11/03/17 Unknown Urine Ketones Tr mg/dL (Negative) 11/03/17 Unknown Urine Blood Neg (Negative) 11/03/17 Unknown Urine Nitrite Neg (Negative) 11/03/17 Unknown Urine Bilirubin Neg (Negative) 11/03/17 Unknown Urine Urobilinogen < 2.0 mg/dL (<2.0) 11/03/17 Unknown Ur Leukocyte Esterase Neg (Negative) 11/03/17 Unknown Urine WBC (Auto) 1.0 /HPF (0.0-6.0) 11/03/17 Unknown Urine RBC (Auto) 1.0 /HPF (0.0-6.0) 11/03/17 Unknown U Epithel Cells (Auto) < 1.0 /HPF (0-13.0) 11/03/17 Unknown Hyaline Casts 1 /LPF 11/03/17 Unknown Urine Mucus Few /HPF 11/03/17 Unknown Assessment and Plan Assessment and plan: I saw and evaluated the patient. I agree with the findings and the plan of care as documented in the Nurse Practitioner's~note, EMS tried bipap and patient failed, requiring intubation by Dr. Ferraro.
[2017-11-03] MEDS ORDERED: DULCOLAX PR PRN (10:00)
[2017-11-03 11:56] LABS: ISTAT Base Excess 4; ISTAT HCO3 29.2; ISTAT PCO2 53.7 (35-45); ISTAT PH 7.344 (7.35-7.45); ISTAT PO2 83 (80-105); ISTAT SO2 95; ISTAT TCO2 31
[2017-11-03] MEDS ORDERED: ZEMURON IV ONE (12:02)
[2017-11-03] MEDS ORDERED: KETALAR ONE (12:02)
--- NOTE | 2017-11-03 12:25 | Consultation ---
History of Present Illness Consult date: 11/03/17 Requesting physician: JOSE A CRUZ Reason for consult: COPD, other (acute respiratory failure) History of present illness: 77 y/o male with known COPD, on bipap therapy but I do not know the frequency, brought in via EMS for acute respiratory failure. Per ED, he was obtunded, so intubated for airway protection. CXR was concerning pneumonia so started on abx therapy. Currently on steroids and neb treatments, short acting. Past History Past Medical History: COPD, hypertension, other (OA and illicit drug us) Past Surgical History: Other (Unable to obtian due to patient's mental status ) Social history: other (Unable to obtian due to patient's mental status ) Family history: other (Unable to obtian due to patient's mental status ) Medications and Allergies Allergies Allergy/AdvReac Type Severity Reaction Status Date / Time Penicillins Allergy Mild Itching Verified 02/21/15 18:30 doxycycline Allergy Hives Verified 11/03/17 05:18 Sulfa (Sulfonamide Allergy Hives Verified 11/03/17 05:18 Antibiotics) sulfamethoxazole Allergy Hives Verified 11/03/17 05:18 [From Bactrim] trimethoprim [From Bactrim] Allergy Hives Verified 11/03/17 05:18 Home Medications Medication Instructions Recorded Confirmed Last Taken Type Prednisone 10 mg PO QDAY #21 tablet 02/26/15 11/03/17 Unknown Rx Aspirin [Adult Low Dose Aspirin EC] 81 mg PO DAILY 11/03/17 11/03/17 Unknown History Atorvastatin Calcium [Lipitor] 10 mg PO DAILY 11/03/17 11/03/17 Unknown History Benzonatate [Tessalon Perle] 100 mg PO TID 11/03/17 11/03/17 Unknown History Diphenhydramine HCl [Complete 25 mg PO Q6H PRN 11/03/17 11/03/17 Unknown History Allergy] Fluticasone [Flonase] 1 spray NS QDAY 11/03/17 11/03/17 Unknown History Furosemide [Lasix] 20 mg PO QDAY 11/03/17 11/03/17 Unknown History Gabapentin [Neurontin] 100 mg PO Q8HR 11/03/17 11/03/17 Unknown History Lisinopril [Zestril TAB] 2.5 mg PO QDAY 11/03/17 11/03/17 Unknown History Methadone [Dolophine] 20 mg PO Q8H 11/03/17 11/03/17 Unknown History Metoprolol Tartrate 25 mg PO BID 11/03/17 11/03/17 Unknown History Polyethylene Glycol 3350 [Miralax 17 gm PO QDAY 11/03/17 11/03/17 Unknown History 3350] Tamsulosin [Flomax] 0.4 mg PO QDAY 11/03/17 11/03/17 Unknown History amLODIPine [Norvasc] 5 mg PO DAILY 11/03/17 11/03/17 Unknown History Active Meds: Active Medications Acetaminophen (Tylenol) 650 mg PO Q4H PRN PRN Reason: Pain MILD(1-3)/Fever >100.5/FLANAGAN Albuterol (Proventil) 2.5 mg IH Q4HRT PRN PRN Reason: Shortness Of Breath Albuterol/Ipratropium (Duoneb *Not For Prn Use*) 1 ampul IH Q6HRT [facility] Arformoterol Tartrate (Brovana Nebu) 15 mcg IH Q12HRT [facility] Bisacodyl (Dulcolax) 10 mg ME QDAY PRN PRN Reason: Constipation unrelieved by MOM Budesonide (Pulmicort) 0.5 mg IH Q12HRT [facility] Enoxaparin Sodium (Lovenox) 40 mg SUB-Q QDAY [facility] Hydrophilic Ointment (Vaseline Lip Therapy) 1 applic TP Q2HR PRN PRN Reason: Dry Lips Fentanyl Citrate (Fentanyl Drip Premix) 2,000 mcg in 100 mls @ 3.719 mls/hr IV TITR KRISTY; 1 MCG/KG/HR PRN Reason: Protocol Last Admin: 11/03/17 07:50 Dose: 2 mcg/kg/hr, 7.439 mls/hr Levofloxacin/Dextrose (Levaquin 750mg/150ml) 750 mg in 150 mls @ 100 mls/hr IV Q24HR K[facility]STY PRN Reason: Protocol Sodium Chloride (Nacl 0.9% 1000 Ml) 1,000 mls @ 75 mls/hr IV DIRECT KRISTY Lorazepam (Ativan) 2 mg IV Q4HR PRN PRN Reason: Agitation Last Admin: 11/03/17 10:19 Dose: 2 mg Methylprednisolone Sodium Succinate (Solu-Medrol) 60 mg IV Q6HR [facility] Morphine Sulfate (Morphine) 2 mg IV Q4H PRN PRN Reason: Pain, Moderate (4-6) Multi-Ingred Cream/Lotion/Oil/Oint (Artificial Tears Ophth Oint) 1 applic OU Q4HR PRN PRN Reason: Dry Eye(s) Sodium Chloride (Nacl 0.9% 500 Ml) 1 ml IV DIRECT KRISTY Physical Examination Vital signs: Vital Signs Resp 22 11/03/17 05:14 Results - Laboratory Findings CBC and BMP: 11/03/17 05:31 11/03/17 07:12 ABG POC ABG pH 7.344 (7.35-7.45) L 11/03/17 11:50 POC ABG pCO2 53.7 (35-45) H 11/03/17 11:50 POC ABG pO2 83 (80-105) 11/03/17 11:50 POC ABG HCO3 29.2 11/03/17 11:50 POC ABG Total CO2 31 11/03/17 11:50 POC ABG O2 Sat 95 11/03/17 11:50 PT/INR, D-dimer PT 13.8 Sec. (12.2-14.9) 11/03/17 07:12 INR 1.01 (0.87-1.13) 11/03/17 07:12 Abnormal lab findings: Abnormal Labs 11/03/17 11/03/17 11/03/17 05:31 05:31 06:10 WBC 13.1 H MCH 27 L MCHC 31 L RDW 16.8 H Lymph % (Auto) 8.6 L [place] % (Auto) 10.9 H Lymph # 1.1 L [place] # 1.4 H Seg Neutrophils % 80.1 H Seg Neutrophils # 10.5 H POC ABG pH 7.191 L POC ABG pCO2 84.1 H POC ABG pO2 VBG pH Potassium 5.1 H BUN 23 H Creatinine 0.6 L Glucose 126 H Albumin 11/03/17 11/03/17 11/03/17 07:12 07:12 07:34 WBC MCH MCHC RDW Lymph % (Auto) [place] % (Auto) Lymph # [place] # Seg Neutrophils % Seg Neutrophils # POC ABG pH 7.294 L POC ABG pCO2 65.0 H POC ABG pO2 67 L VBG pH 7.318 L Potassium BUN 23 H Creatinine 0.6 L Glucose 129 H Albumin 3.6 L 11/03/17 11:50 WBC MCH MCHC RDW Lymph % (Auto) [place] % (Auto) Lymph # [place] # Seg Neutrophils % Seg Neutrophils # POC ABG pH 7.344 L POC ABG pCO2 53.7 H POC ABG pO2 VBG pH Potassium BUN Creatinine Glucose Albumin Assessment and Plan 77 y/o male with acute on chronic respiratory failure, copd exacerbation, thought secondary to pneumonia. 1. Change steroids to 60q6 2. Added BID pulmicort and brovana 3. Continue scheduled short acting nebs for next 24 hours 4. Ok with current abx regimen 5. Sedation to a Rider of 2 or RASS of 0 6. DVT and GI prophylaxis Thank you for this consult, will continue to follow along with you. CCT 31 minutes
[2017-11-03] MEDS: NACL 0.9% 1000 ML 1,000 ML IV SCH (12:40)
[2017-11-03] MEDS: MORPHINE IV PRN (12:42)
[2017-11-03] MEDS: LOVENOX SUB-Q SCH (12:42)
[2017-11-03] MEDS ORDERED: ATIVAN IV ONE (13:24)
[2017-11-03] MEDS ORDERED: DIPRIVAN 10 MG/ML 1,000 MG/100 ML BOTTLE IV SCH (14:00)
[2017-11-03] MEDS: DUONEB *Not for PRN Use IH SCH ×2 (15:48→20:07)
[2017-11-03] MEDS: BROVANA NEBU IH SCH ×2 (15:49→20:06)
[2017-11-03] MEDS: PULMICORT IH SCH ×2 (15:49→20:06)
--- NOTE | 2017-11-03 16:20 | XRay Report ---
FINAL REPORT PROCEDURE: XR CHEST 1V AP 18:46 p.m. TECHNIQUE: Chest radiograph anteroposterior view. CPT 42346 HISTORY: line placement COMPARISON: 11/03/2017 11:53 a.m. FINDINGS: Heart: Top-normal heart size. Mediastinum/Vessels: Mild congestion with cephalization of flow. Lungs/Pleural space: Patchy airspace process in the lower lung zones. Elevation of the hemidiaphragms.. Bony thorax: No acute osseous abnormality. Life support devices: Endotracheal tube stable in position. Tracheal bifurcation not well delineated however the tip could be above this level of approximately in the 4 centimeter range. NG tube along the esophagus terminating left upper quadrant area of the fundus. IMPRESSION: Endotracheal tube and NG tube as described. Lower lung zone infiltrates and or atelectasis
[2017-11-04] MEDS: DUONEB *Not for PRN Use IH SCH ×3 (02:30→15:10)
--- NOTE | 2017-11-04 03:13 | XRay Report ---
FINAL REPORT EXAM: XR CHEST 1V AP HISTORY: follow up respiratory failure COMPARISON: November 03, 2017 FINDINGS: Frontal view(s) of the chest obtained. Heart normal in size. ETT and NG tube remain in place. Stable patchy opacities at the lung bases and small effusions. No pneumothorax. IMPRESSION: No change from prior study. Stable patchy opacities at the lung bases and small effusions. Lines and tubes are unchanged.
[2017-11-04 05:21] LABS: Hemoglobin 10.6 gm/dl (11.8-15.2); Mean Corpuscular HGB Conc 32 % (32-34); Mean Corpuscular Hemoglobin 27 pg (28-32); Mean Corpuscular Volume 84 fl (84-94); Platelet Count 193 K/mm3 (140-440); Red Blood Count 3.93 M/mm3 (3.65-5.03); Red Cell Distribution Width 16.4 % (13.2-15.2)
[2017-11-04 05:32] LABS: Anion Gap 16 mmol/L; BUN/Creatinine Ratio 42; Blood Urea Nitrogen 21 mg/dL (9-20); Calcium 8.3 mg/dL (8.4-10.2); Carbon Dioxide 27 mmol/L (22-30); Chloride 103.6 mmol/L (98-107); Glucose 141 mg/dL (75-100); Potassium 4.4 mmol/L (3.6-5.0); Sodium 142 mmol/L (137-145)
[2017-11-04 06:15] LABS: ISTAT Base Excess 6; ISTAT HCO3 31.6; ISTAT PH 7.376 (7.35-7.45); ISTAT PO2 93 (80-105); ISTAT SO2 97; ISTAT TCO2 33
[2017-11-04 07:08] LABS: Basophils % (Manual) 0 % (0.0-1.8); Blastocytes % (Manual) 0 %; Eosinophils % (Manual) 0 % (0.0-4.3)
[2017-11-04 07:09] LABS: Anisocytosis 1+; Diff Status Complete; Hypochromasia 1+; Ovalocytes Few
[2017-11-04] MEDS: PULMICORT IH SCH (08:23)
[2017-11-04] MEDS: BROVANA NEBU IH SCH (08:23)
[2017-11-04 10:28] LABS: ISTAT Base Excess 5; ISTAT HCO3 30.6; ISTAT PH 7.369 (7.35-7.45); ISTAT PO2 67 (80-105); ISTAT SO2 92; ISTAT TCO2 32
[2017-11-04] MEDS: LEVAQUIN 750MG/150ML 750 MG/150 ML BAG IV SCH (10:43)
[2017-11-04] MEDS: LOVENOX SUB-Q SCH (10:44)
--- NOTE | 2017-11-04 11:23 | Progress Note ---
Assessment and Plan 77 y/o male with acute on chronic respiratory failure, copd exacerbation, thought secondary to pneumonia. 1. Continue steroids at 60q6 2. Continue pulmicort and brovana 3. Continue scheduled short acting nebs for 24 more hours 4. Ok with current abx regimen 5. Stop sedation 6. Attempt extubation and order bipap prn. 7. Will give a one time dose of IV lasix 10mg Thank you for this consult, will continue to follow along with you. CCT 31 minutes Subjective Date of service: 11/04/17 Interval history: Awake and alert. Follows commands. On PSV 09/01 Objective Vital Signs - 12hr 11/03/17 11/03/17 11/03/17 23:20 23:30 23:46 Pulse Rate 84 78 77 Pulse Rate [ Anterior Bilateral Throughout] Respiratory 18 18 18 Rate Respiratory Rate [Anterior Bilateral Throughout] Blood Pressure 124/61 117/57 117/57 O2 Sat by Pulse 95 96 96 Oximetry 11/04/17 11/04/17 11/04/17 00:00 00:15 00:16 Pulse Rate 77 92 H 79 Pulse Rate [ Anterior Bilateral Throughout] Respiratory 18 18 Rate Respiratory Rate [Anterior Bilateral Throughout] Blood Pressure 114/57 114/57 114/57 O2 Sat by Pulse 96 95 96 Oximetry 11/04/17 11/04/17 11/04/17 00:30 00:46 01:00 Pulse Rate 99 H 94 H 90 Pulse Rate [ Anterior Bilateral Throughout] Respiratory 19 20 13 Rate Respiratory Rate [Anterior Bilateral Throughout] Blood Pressure 114/57 134/74 134/74 O2 Sat by Pulse 94 95 96 Oximetry 11/04/17 11/04/17 11/04/17 01:16 01:30 01:46 Pulse Rate 84 78 74 Pulse Rate [ Anterior Bilateral Throughout] Respiratory 18 18 18 Rate Respiratory Rate [Anterior Bilateral Throughout] Blood Pressure 124/71 110/60 110/60 O2 Sat by Pulse 96 96 95 Oximetry 11/04/17 11/04/17 11/04/17 02:00 02:16 02:30 Pulse Rate 73 71 86 Pulse Rate [ 71 Anterior Bilateral Throughout] Respiratory 18 18 17 Rate Respiratory 18 Rate [Anterior Bilateral Throughout] Blood Pressure 117/60 117/60 115/62 O2 Sat by Pulse 97 97 96 Oximetry 11/04/17 11/04/17 11/04/17 02:40 02:46 03:00 Pulse Rate 73 83 Pulse Rate [ 74 Anterior Bilateral Throughout] Respiratory 18 18 Rate Respiratory 18 Rate [Anterior Bilateral Throughout] Blood Pressure 115/62 97/67 O2 Sat by Pulse 97 97 Oximetry 11/04/17 11/04/17 11/04/17 06:01 07:49 09:09 Pulse Rate 83 78 Pulse Rate [ Anterior Bilateral Throughout] Respiratory 22 Rate Respiratory Rate [Anterior Bilateral Throughout] Blood Pressure 125/62 127/62 O2 Sat by Pulse 97 96 100 Oximetry Constitutional: no acute distress, alert Eyes: non-icteric ENT: other (orally intubated, not sedated) Neck: supple Effort: normal Ascultation: Bilateral: diminished breath sounds, wheezes Percussion: Bilateral: not dull Cardiovascular: regular rate and rhythm Gastrointestinal: normoactive bowel sounds, soft Integumentary: other Extremities: other Neurologic: normal mental status Psychiatric: mood appropriate CBC and BMP: 11/04/17 04:29 11/04/17 04:29 ABG, PT/INR, D-dimer: ABG POC ABG pH 7.369 (7.35-7.45) 11/04/17 10:25 POC ABG pCO2 53.0 (35-45) H 11/04/17 10:25 POC ABG pO2 67 (80-105) L 11/04/17 10:25 POC ABG HCO3 30.6 11/04/17 10:25 POC ABG Total CO2 32 11/04/17 10:25 POC ABG O2 Sat 92 11/04/17 10:25 PT/INR, D-dimer PT 13.8 Sec. (12.2-14.9) 11/03/17 07:12 INR 1.01 (0.87-1.13) 11/03/17 07:12 Abnormal lab findings: Abnormal Labs 11/03/17 11/03/17 11/03/17 05:31 05:31 06:10 WBC 13.1 H Hgb Hct MCH 27 L MCHC 31 L RDW 16.8 H Lymph % (Auto) 8.6 L [place] % (Auto) 10.9 H Lymph # 1.1 L [place] # 1.4 H Seg Neutrophils % 80.1 H Lymphocytes % (Manual) Seg Neutrophils # 10.5 H Lymphocytes # (Manual) POC ABG pH 7.191 L POC ABG pCO2 84.1 H POC ABG pO2 VBG pH Potassium 5.1 H BUN 23 H Creatinine 0.6 L Glucose 126 H Calcium Albumin 11/03/17 11/03/17 11/03/17 07:12 07:12 07:34 WBC Hgb Hct MCH MCHC RDW Lymph % (Auto) [place] % (Auto) Lymph # [place] # Seg Neutrophils % Lymphocytes % (Manual) Seg Neutrophils # Lymphocytes # (Manual) POC ABG pH 7.294 L POC ABG pCO2 65.0 H POC ABG pO2 67 L VBG pH 7.318 L Potassium BUN 23 H Creatinine 0.6 L Glucose 129 H Calcium Albumin 3.6 L 11/03/17 11/04/17 11/04/17 11:50 04:29 04:29 WBC Hgb 10.6 L Hct 33.0 L MCH 27 L MCHC RDW 16.4 H Lymph % (Auto) [place] % (Auto) Lymph # [place] # Seg Neutrophils % Lymphocytes % (Manual) 7.0 L Seg Neutrophils # Lymphocytes # (Manual) 0.5 L POC ABG pH 7.344 L POC ABG pCO2 53.7 H POC ABG pO2 VBG pH Potassium BUN 21 H Creatinine 0.5 L Glucose 141 H Calcium 8.3 L Albumin 11/04/17 11/04/17 06:07 10:25 WBC Hgb Hct MCH MCHC RDW Lymph % (Auto) [place] % (Auto) Lymph # [place] # Seg Neutrophils % Lymphocytes % (Manual) Seg Neutrophils # Lymphocytes # (Manual) POC ABG pH POC ABG pCO2 54.0 H 53.0 H POC ABG pO2 67 L VBG pH Potassium BUN Creatinine Glucose Calcium Albumin Chest x-ray: image reviewed (chronic interstitial changes with small bilateral effusions.)
[2017-11-04] MEDS ORDERED: LASIX IV ONE (11:25)
--- NOTE | 2017-11-04 16:19 | Progress Note ---
Assessment and Plan Assessment and plan: Patient is a 74-year-old man from [facility] with history of hypertension OA, COPD, chronic pain syndrome and hypertension presented to ED via EMS for evaluation of respiratory distress/ams. Acute respiratory failure with hypoxia Intubated upon admission and extubated next day Aggressive Nebulizers/Inhalers ABG when necessary Managed By Pulmonary Supportive care Sepsis due to Pneumonia Blood and urine culture collected prior to antibiotic Follow blood cultures Initiated empiric IV Levaquin Supportive care Suspected aspiration Pneumonia Urine culture collected Initiated empiric empiric IV Levaquin Acute COPD exacerbation Continue on Duoneb every 6 hours IV steroid Solumedrol Initiated empiric IV Levaquin Oxygen as necessary Acute metabolic encephalopathy, poa treat the copd Hypertensive urgency Hold home antihypertensive medications for now IV hydralazin for SBP>160 Closely monitor blood pressure Malnutrition Nutrition consult DVT prophylaxis Heparin extubated, probable downgraded from icu if ok with Internvist History Interval history: Patient was seen and examined. Follow-up on current diagnosis. Overnight uneventful. Patient is now extubated but drowsy.. Imaging, nursing note, chart , labs and old chart reviewed. Discussed with patient. Hospitalist Physical - Physical exam Narrative exam: GEN: Chronic debilitating appearing NAD,lethargic and drowsy but protecting airway on VM HEENT: NCAT, EOMI, PERRL, OP Clear NECK: supple, no adenopathy, no thyromegaly, no JVD CVS/HEART: RRR, NORMAL S1S2, NO JVD, pulses present bilaterally CHEST/LUNGS: Symmetrical chest expansion, diminished air entry bilaterally GI/Abdomen: soft, NTND, good bowel sounds, no guarding or rebound /Bladder: no suprapubic tenderness, no CVA or paraspinal tenderness EXT/Skin: no c/c/e, no obvious rash MSK: FROM x 4 Neuro: CN 2-12 grossly intact, no new focal deficits Psych: calm - Constitutional Vitals: Temp Pulse Resp BP Pulse Ox 97.4 F L 105 H 20 143/68 100 11/03/17 16:25 11/04/17 11:46 11/04/17 15:00 11/04/17 11:46 11/04/17 15:00 General appearance: Present: no acute distress Results - Labs CBC & Chem 7: 11/04/17 04:29 11/04/17 04:29 Labs: Laboratory Last Values WBC 7.0 K/mm3 (4.5-11.0) 11/04/17 04:29 RBC 3.93 M/mm3 (3.65-5.03) 11/04/17 04:29 Hgb 10.6 gm/dl (11.8-15.2) L 11/04/17 04:29 Hct 33.0 % (35.5-45.6) L 11/04/17 04:29 MCV 84 fl (84-94) 11/04/17 04:29 MCH 27 pg (28-32) L 11/04/17 04:29 MCHC 32 % (32-34) 11/04/17 04:29 RDW 16.4 % (13.2-15.2) H 11/04/17 04:29 Plt Count 193 K/mm3 (140-440) 11/04/17 04:29 Lymph % (Auto) 8.6 % (13.4-35.0) L 11/03/17 05:31 [place] % (Auto) 10.9 % (0.0-7.3) H 11/03/17 05:31 Eos % (Auto) 0.3 % (0.0-4.3) 11/03/17 05:31 Baso % (Auto) 0.1 % (0.0-1.8) 11/03/17 05:31 Lymph # 1.1 K/mm3 (1.2-5.4) L 11/03/17 05:31 [place] # 1.4 K/mm3 (0.0-0.8) H 11/03/17 05:31 Eos # 0.0 K/mm3 (0.0-0.4) 11/03/17 05:31 Baso # 0.0 K/mm3 (0.0-0.1) 11/03/17 05:31 Add Manual Diff Complete 11/04/17 04:29 Total Counted 100 11/04/17 04:29 Seg Neutrophils % Operating Room Technologist 11/04/17 04:29 Seg Neuts % (Manual) 66.0 % (40.0-70.0) 11/04/17 04:29 Band Neutrophils % 22.0 % 11/04/17 04:29 Lymphocytes % (Manual) 7.0 % (13.4-35.0) L 11/04/17 04:29 Reactive Lymphs % (Man) 0 % 11/04/17 04:29 Monocytes % (Manual) 5.0 % (0.0-7.3) 11/04/17 04:29 Eosinophils % (Manual) 0 % (0.0-4.3) 11/04/17 04:29 Basophils % (Manual) 0 % (0.0-1.8) 11/04/17 04:29 Metamyelocytes % 0 % 11/04/17 04:29 Myelocytes % 0 % 11/04/17 04:29 Promyelocytes % 0 % 11/04/17 04:29 Blast Cells % 0 % 11/04/17 04:29 Nucleated RBC % Not Reportable 11/04/17 04:29 Seg Neutrophils # 10.5 K/mm3 (1.8-7.7) H 11/03/17 05:31 Seg Neutrophils # Man 4.6 K/mm3 (1.8-7.7) 11/04/17 04:29 Band Neutrophils # 1.5 K/mm3 11/04/17 04:29 Lymphocytes # (Manual) 0.5 K/mm3 (1.2-5.4) L 11/04/17 04:29 Abs React Lymphs (Man) 0.0 K/mm3 11/04/17 04:29 Monocytes # (Manual) 0.4 K/mm3 (0.0-0.8) 11/04/17 04:29 Eosinophils # (Manual) 0.0 K/mm3 (0.0-0.4) 11/04/17 04:29 Basophils # (Manual) 0.0 K/mm3 (0.0-0.1) 11/04/17 04:29 Metamyelocytes # 0.0 K/mm3 11/04/17 04:29 Myelocytes # 0.0 K/mm3 11/04/17 04:29 Promyelocytes # 0.0 K/mm3 11/04/17 04:29 Blast Cells # 0.0 K/mm3 11/04/17 04:29 WBC Morphology Not Reportable 11/04/17 04:29 Hypersegmented Neuts Not Reportable 11/04/17 04:29 Hyposegmented Neuts Not Reportable 11/04/17 04:29 Hypogranular Neuts Not Reportable 11/04/17 04:29 Smudge Cells Not Reportable 11/04/17 04:29 Toxic Granulation Not Reportable 11/04/17 04:29 Toxic Vacuolation Not Reportable 11/04/17 04:29 Dohle Bodies Not Reportable 11/04/17 04:29 Pelger-Huet Anomaly Not Reportable 11/04/17 04:29 [place] Rods Not Reportable 11/04/17 04:29 Platelet Estimate Appears normal 11/04/17 04:29 Clumped Platelets Not Reportable 11/04/17 04:29 Plt Clumps, EDTA Not Reportable 11/04/17 04:29 Large Platelets Not Reportable 11/04/17 04:29 Giant Platelets Not Reportable 11/04/17 04:29 Platelet Satelliting Not Reportable 11/04/17 04:29 Plt Morphology Comment Not Reportable 11/04/17 04:29 RBC Morphology Not Reportable 11/04/17 04:29 Dimorphic RBCs Not Reportable 11/04/17 04:29 Polychromasia Not Reportable 11/04/17 04:29 Hypochromasia 1+ 11/04/17 04:29 Poikilocytosis Not Reportable 11/04/17 04:29 Anisocytosis 1+ 11/04/17 04:29 Microcytosis Not Reportable 11/04/17 04:29 Macrocytosis Not Reportable 11/04/17 04:29 Spherocytes Not Reportable 11/04/17 04:29 Pappenheimer Bodies Not Reportable 11/04/17 04:29 Sickle Cells Not Reportable 11/04/17 04:29 Target Cells Not Reportable 11/04/17 04:29 Tear Drop Cells Not Reportable 11/04/17 04:29 Ovalocytes Few 11/04/17 04:29 Helmet Cells Not Reportable 11/04/17 04:29 [place] Bodies Not Reportable 11/04/17 04:29 [place] Rings Not Reportable 11/04/17 04:29 [place] Cells Not Reportable 11/04/17 04:29 Bite Cells Not Reportable 11/04/17 04:29 Crenated Cell Not Reportable 11/04/17 04:29 Elliptocytes Not Reportable 11/04/17 04:29 Acanthocytes (Spur) Not Reportable 11/04/17 04:29 Rouleaux Not Reportable 11/04/17 04:29 Hemoglobin C Crystals Not Reportable 11/04/17 04:29 Schistocytes Not Reportable 11/04/17 04:29 Malaria parasites Not Reportable 11/04/17 04:29 Danny Bodies Not Reportable 11/04/17 04:29 Hem Pathologist Commnt No 11/04/17 04:29 PT 13.8 Sec. (12.2-14.9) 11/03/17 07:12 INR 1.01 (0.87-1.13) 11/03/17 07:12 POC ABG pH 7.369 (7.35-7.45) 11/04/17 10:25 POC ABG pCO2 53.0 (35-45) H 11/04/17 10:25 POC ABG pO2 67 (80-105) L 11/04/17 10:25 POC ABG HCO3 30.6 11/04/17 10:25 POC ABG Total CO2 32 11/04/17 10:25 POC ABG O2 Sat 92 11/04/17 10:25 POC ABG Base Excess 5 11/04/17 10:25 VBG pH 7.318 (7.320-7.420) L 11/03/17 07:12 FiO2 40 % 11/04/17 10:25 Sodium 142 mmol/L (137-145) 11/04/17 04:29 Potassium 4.4 mmol/L (3.6-5.0) 11/04/17 04:29 Chloride 103.6 mmol/L (98-107) 11/04/17 04:29 Carbon Dioxide 27 mmol/L (22-30) 11/04/17 04:29 Anion Gap 16 mmol/L 11/04/17 04:29 BUN 21 mg/dL (9-20) H 11/04/17 04:29 Creatinine 0.5 mg/dL (0.8-1.5) L 11/04/17 04:29 Estimated GFR > 60 ml/min 11/04/17 04:29 BUN/Creatinine Ratio 42 % 11/04/17 04:29 Glucose 141 mg/dL (75-100) H 11/04/17 04:29 Lactic Acid 0.90 mmol/L (0.7-2.0) 11/03/17 09:30 Calcium 8.3 mg/dL (8.4-10.2) L 11/04/17 04:29 Total Bilirubin 0.30 mg/dL (0.1-1.2) 11/03/17 07:12 AST 17 units/L (5-40) 11/03/17 07:12 ALT 12 units/L (7-56) 11/03/17 07:12 Alkaline Phosphatase 97 units/L (35-129) 11/03/17 07:12 Troponin T 0.015 ng/mL (0.00-0.029) 11/03/17 05:31 Total Protein 7.1 g/dL (6.3-8.2) 11/03/17 07:12 Albumin 3.6 g/dL (3.9-5) L 11/03/17 07:12 Albumin/Globulin Ratio 1.0 % 11/03/17 07:12 Urine Color Yellow (Yellow) 11/03/17 Unknown Urine Turbidity Clear (Clear) 11/03/17 Unknown Urine pH 5.0 (5.0-7.0) 11/03/17 Unknown Ur Specific [place] 1.018 (1.003-1.030) 11/03/17 Unknown Urine Protein <15 mg/dl mg/dL (Negative) 11/03/17 Unknown Urine Glucose (UA) Neg mg/dL (Negative) 11/03/17 Unknown Urine Ketones Tr mg/dL (Negative) 11/03/17 Unknown Urine Blood Neg (Negative) 11/03/17 Unknown Urine Nitrite Neg (Negative) 11/03/17 Unknown Urine Bilirubin Neg (Negative) 11/03/17 Unknown Urine Urobilinogen < 2.0 mg/dL (<2.0) 11/03/17 Unknown Ur Leukocyte Esterase Neg (Negative) 11/03/17 Unknown Urine WBC (Auto) 1.0 /HPF (0.0-6.0) 11/03/17 Unknown Urine RBC (Auto) 1.0 /HPF (0.0-6.0) 11/03/17 Unknown U Epithel Cells (Auto) < 1.0 /HPF (0-13.0) 11/03/17 Unknown Hyaline Casts 1 /LPF 11/03/17 Unknown Urine Mucus Few /HPF 11/03/17 Unknown
[2017-11-04] MEDS: NACL 0.9% 1000 ML 1,000 ML IV SCH (22:35)
--- NOTE | 2017-11-05 04:13 | XRay Report ---
FINAL REPORT EXAM: XR CHEST 1V AP HISTORY: follow up respiratory failure TECHNIQUE: An AP radiograph of the chest was obtained and compared to the study of 11/04/2017. FINDINGS: Since the previous study the patient has been extubated. The NG tube has been removed. There are stable increased markings both lung bases representing some combination of atelectasis and infiltrates. The heart is mildly enlarged. There is interstitial prominence in both lungs. The bones and soft tissues otherwise are unchanged. IMPRESSION: Stable bibasilar atelectatic changes/infiltrates. Interval extubation and removal of the NG tube.
[2017-11-05] MEDS: BROVANA NEBU IH SCH ×3 (07:41→19:42)
[2017-11-05] MEDS: DUONEB *Not for PRN Use IH SCH ×4 (07:41→19:42)
[2017-11-05] MEDS: PULMICORT IH SCH ×3 (07:41→19:42)
[2017-11-05] MEDS: LOVENOX SUB-Q SCH (09:32)
[2017-11-05] MEDS: LEVAQUIN 750MG/150ML 750 MG/150 ML BAG IV SCH (09:32)
--- NOTE | 2017-11-05 11:58 | Progress Note ---
Assessment and Plan Assessment and plan: Patient is a 74-year-old man from [facility] with history of hypertension OA, COPD, chronic pain syndrome and hypertension presented to ED via EMS for evaluation of respiratory distress/ams. Acute respiratory failure with hypoxia Intubated upon admission and extubated next day Aggressive Nebulizers/Inhalers ABG when necessary Managed By Pulmonary Supportive care Sepsis due to Pneumonia Blood and urine culture collected prior to antibiotic Follow blood cultures Initiated empiric IV Levaquin Supportive care Suspected aspiration Pneumonia Urine culture collected Initiated empiric empiric IV Levaquin Acute COPD exacerbation Continue on Duoneb every 6 hours IV steroid Solumedrol Initiated empiric IV Levaquin Oxygen as necessary Acute metabolic encephalopathy, poa treat the copd Hypertensive urgency Hold home antihypertensive medications for now IV hydralazin for SBP>160 Closely monitor blood pressure Malnutrition Nutrition consult DVT prophylaxis Heparin extubated, probable downgraded from icu if ok with Internvist Scrotal edema with pain get u/s consulted Urology, pt known to Dr. Stone History Interval history: Patient was seen and examined. Follow-up on current diagnosis. Overnight uneventful. Patient is now extubated but drowsy.. Imaging, nursing note, chart , labs and old chart reviewed. Discussed with patient. Hospitalist Physical - Physical exam Narrative exam: GEN: Chronic debilitating appearing NAD,lethargic and drowsy but protecting airway on VM HEENT: NCAT, EOMI, PERRL, OP Clear NECK: supple, no adenopathy, no thyromegaly, no JVD CVS/HEART: RRR, NORMAL S1S2, NO JVD, pulses present bilaterally CHEST/LUNGS: Symmetrical chest expansion, diminished air entry bilaterally GI/Abdomen: soft, NTND, good bowel sounds, no guarding or rebound /Bladder: no suprapubic tenderness, no CVA or paraspinal tenderness EXT/Skin: no c/c/e, no obvious rash MSK: FROM x 4 Neuro: CN 2-12 grossly intact, no new focal deficits Psych: calm - Constitutional Vitals: Temp Pulse Resp BP Pulse Ox 98.5 F 68 18 161/81 96 11/05/17 07:56 11/05/17 08:00 11/05/17 08:00 11/05/17 07:56 11/05/17 08:22 General appearance: Present: no acute distress Results - Labs CBC & Chem 7: 11/04/17 04:29 11/04/17 04:29 Labs: Laboratory Last Values WBC 7.0 K/mm3 (4.5-11.0) 11/04/17 04:29 RBC 3.93 M/mm3 (3.65-5.03) 11/04/17 04:29 Hgb 10.6 gm/dl (11.8-15.2) L 11/04/17 04:29 Hct 33.0 % (35.5-45.6) L 11/04/17 04:29 MCV 84 fl (84-94) 11/04/17 04:29 MCH 27 pg (28-32) L 11/04/17 04:29 MCHC 32 % (32-34) 11/04/17 04:29 RDW 16.4 % (13.2-15.2) H 11/04/17 04:29 Plt Count 193 K/mm3 (140-440) 11/04/17 04:29 Lymph % (Auto) 8.6 % (13.4-35.0) L 11/03/17 05:31 [place] % (Auto) 10.9 % (0.0-7.3) H 11/03/17 05:31 Eos % (Auto) 0.3 % (0.0-4.3) 11/03/17 05:31 Baso % (Auto) 0.1 % (0.0-1.8) 11/03/17 05:31 Lymph # 1.1 K/mm3 (1.2-5.4) L 11/03/17 05:31 [place] # 1.4 K/mm3 (0.0-0.8) H 11/03/17 05:31 Eos # 0.0 K/mm3 (0.0-0.4) 11/03/17 05:31 Baso # 0.0 K/mm3 (0.0-0.1) 11/03/17 05:31 Add Manual Diff Complete 11/04/17 04:29 Total Counted 100 11/04/17 04:29 Seg Neutrophils % Extractions Technologist 11/04/17 04:29 Seg Neuts % (Manual) 66.0 % (40.0-70.0) 11/04/17 04:29 Band Neutrophils % 22.0 % 11/04/17 04:29 Lymphocytes % (Manual) 7.0 % (13.4-35.0) L 11/04/17 04:29 Reactive Lymphs % (Man) 0 % 11/04/17 04:29 Monocytes % (Manual) 5.0 % (0.0-7.3) 11/04/17 04:29 Eosinophils % (Manual) 0 % (0.0-4.3) 11/04/17 04:29 Basophils % (Manual) 0 % (0.0-1.8) 11/04/17 04:29 Metamyelocytes % 0 % 11/04/17 04:29 Myelocytes % 0 % 11/04/17 04:29 Promyelocytes % 0 % 11/04/17 04:29 Blast Cells % 0 % 11/04/17 04:29 Nucleated RBC % Not Reportable 11/04/17 04:29 Seg Neutrophils # 10.5 K/mm3 (1.8-7.7) H 11/03/17 05:31 Seg Neutrophils # Man 4.6 K/mm3 (1.8-7.7) 11/04/17 04:29 Band Neutrophils # 1.5 K/mm3 11/04/17 04:29 Lymphocytes # (Manual) 0.5 K/mm3 (1.2-5.4) L 11/04/17 04:29 Abs React Lymphs (Man) 0.0 K/mm3 11/04/17 04:29 Monocytes # (Manual) 0.4 K/mm3 (0.0-0.8) 11/04/17 04:29 Eosinophils # (Manual) 0.0 K/mm3 (0.0-0.4) 11/04/17 04:29 Basophils # (Manual) 0.0 K/mm3 (0.0-0.1) 11/04/17 04:29 Metamyelocytes # 0.0 K/mm3 11/04/17 04:29 Myelocytes # 0.0 K/mm3 11/04/17 04:29 Promyelocytes # 0.0 K/mm3 11/04/17 04:29 Blast Cells # 0.0 K/mm3 11/04/17 04:29 WBC Morphology Not Reportable 11/04/17 04:29 Hypersegmented Neuts Not Reportable 11/04/17 04:29 Hyposegmented Neuts Not Reportable 11/04/17 04:29 Hypogranular Neuts Not Reportable 11/04/17 04:29 Smudge Cells Not Reportable 11/04/17 04:29 Toxic Granulation Not Reportable 11/04/17 04:29 Toxic Vacuolation Not Reportable 11/04/17 04:29 Dohle Bodies Not Reportable 11/04/17 04:29 Pelger-Huet Anomaly Not Reportable 11/04/17 04:29 [place] Rods Not Reportable 11/04/17 04:29 Platelet Estimate Appears normal 11/04/17 04:29 Clumped Platelets Not Reportable 11/04/17 04:29 Plt Clumps, EDTA Not Reportable 11/04/17 04:29 Large Platelets Not Reportable 11/04/17 04:29 Giant Platelets Not Reportable 11/04/17 04:29 Platelet Satelliting Not Reportable 11/04/17 04:29 Plt Morphology Comment Not Reportable 11/04/17 04:29 RBC Morphology Not Reportable 11/04/17 04:29 Dimorphic RBCs Not Reportable 11/04/17 04:29 Polychromasia Not Reportable 11/04/17 04:29 Hypochromasia 1+ 11/04/17 04:29 Poikilocytosis Not Reportable 11/04/17 04:29 Anisocytosis 1+ 11/04/17 04:29 Microcytosis Not Reportable 11/04/17 04:29 Macrocytosis Not Reportable 11/04/17 04:29 Spherocytes Not Reportable 11/04/17 04:29 Pappenheimer Bodies Not Reportable 11/04/17 04:29 Sickle Cells Not Reportable 11/04/17 04:29 Target Cells Not Reportable 11/04/17 04:29 Tear Drop Cells Not Reportable 11/04/17 04:29 Ovalocytes Few 11/04/17 04:29 Helmet Cells Not Reportable 11/04/17 04:29 [place] Bodies Not Reportable 11/04/17 04:29 [place] Rings Not Reportable 11/04/17 04:29 [place] Cells Not Reportable 11/04/17 04:29 Bite Cells Not Reportable 11/04/17 04:29 Crenated Cell Not Reportable 11/04/17 04:29 Elliptocytes Not Reportable 11/04/17 04:29 Acanthocytes (Spur) Not Reportable 11/04/17 04:29 Rouleaux Not Reportable 11/04/17 04:29 Hemoglobin C Crystals Not Reportable 11/04/17 04:29 Schistocytes Not Reportable 11/04/17 04:29 Malaria parasites Not Reportable 11/04/17 04:29 Danny Bodies Not Reportable 11/04/17 04:29 Hem Pathologist Commnt No 11/04/17 04:29 PT 13.8 Sec. (12.2-14.9) 11/03/17 07:12 INR 1.01 (0.87-1.13) 11/03/17 07:12 POC ABG pH 7.369 (7.35-7.45) 11/04/17 10:25 POC ABG pCO2 53.0 (35-45) H 11/04/17 10:25 POC ABG pO2 67 (80-105) L 11/04/17 10:25 POC ABG HCO3 30.6 11/04/17 10:25 POC ABG Total CO2 32 11/04/17 10:25 POC ABG O2 Sat 92 11/04/17 10:25 POC ABG Base Excess 5 11/04/17 10:25 VBG pH 7.318 (7.320-7.420) L 11/03/17 07:12 FiO2 40 % 11/04/17 10:25 Sodium 142 mmol/L (137-145) 11/04/17 04:29 Potassium 4.4 mmol/L (3.6-5.0) 11/04/17 04:29 Chloride 103.6 mmol/L (98-107) 11/04/17 04:29 Carbon Dioxide 27 mmol/L (22-30) 11/04/17 04:29 Anion Gap 16 mmol/L 11/04/17 04:29 BUN 21 mg/dL (9-20) H 11/04/17 04:29 Creatinine 0.5 mg/dL (0.8-1.5) L 11/04/17 04:29 Estimated GFR > 60 ml/min 11/04/17 04:29 BUN/Creatinine Ratio 42 % 11/04/17 04:29 Glucose 141 mg/dL (75-100) H 11/04/17 04:29 Lactic Acid 0.90 mmol/L (0.7-2.0) 11/03/17 09:30 Calcium 8.3 mg/dL (8.4-10.2) L 11/04/17 04:29 Total Bilirubin 0.30 mg/dL (0.1-1.2) 11/03/17 07:12 AST 17 units/L (5-40) 11/03/17 07:12 ALT 12 units/L (7-56) 11/03/17 07:12 Alkaline Phosphatase 97 units/L (35-129) 11/03/17 07:12 Troponin T 0.015 ng/mL (0.00-0.029) 11/03/17 05:31 Total Protein 7.1 g/dL (6.3-8.2) 11/03/17 07:12 Albumin 3.6 g/dL (3.9-5) L 11/03/17 07:12 Albumin/Globulin Ratio 1.0 % 11/03/17 07:12 Urine Color Yellow (Yellow) 11/03/17 Unknown Urine Turbidity Clear (Clear) 11/03/17 Unknown Urine pH 5.0 (5.0-7.0) 11/03/17 Unknown Ur Specific [place] 1.018 (1.003-1.030) 11/03/17 Unknown Urine Protein <15 mg/dl mg/dL (Negative) 11/03/17 Unknown Urine Glucose (UA) Neg mg/dL (Negative) 11/03/17 Unknown Urine Ketones Tr mg/dL (Negative) 11/03/17 Unknown Urine Blood Neg (Negative) 11/03/17 Unknown Urine Nitrite Neg (Negative) 11/03/17 Unknown Urine Bilirubin Neg (Negative) 11/03/17 Unknown Urine Urobilinogen < 2.0 mg/dL (<2.0) 11/03/17 Unknown Ur Leukocyte Esterase Neg (Negative) 11/03/17 Unknown Urine WBC (Auto) 1.0 /HPF (0.0-6.0) 11/03/17 Unknown Urine RBC (Auto) 1.0 /HPF (0.0-6.0) 11/03/17 Unknown U Epithel Cells (Auto) < 1.0 /HPF (0-13.0) 11/03/17 Unknown Hyaline Casts 1 /LPF 11/03/17 Unknown Urine Mucus Few /HPF 11/03/17 Unknown
--- NOTE | 2017-11-05 15:30 | Ultrasound Report ---
FINAL REPORT EXAM: US TESTICULAR DOPPLER COMP HISTORY: swollen tsticle TECHNIQUE: Scrotal ultrasound with Doppler PRIORS: 07/27/2017 FINDINGS: There are bilateral large hydroceles, right greater than left. These are similar to prior the right testicle measures 4.7 x 2.6 x 2.7 cm. The left measures 4.3 x 2.7 x 2.8 cm. There is testicular blood flow bilaterally. Blood flows fairly symmetric there is no intratesticular mass seen. There is no evidence for torsion. Left epididymis is larger than right. This appearance is unchanged. There is a heterogeneous echogenic area near the right epididymal head which may contain calcification. Area measures about 6 x 3 x 7 mm. There is a heterogeneous, possibly cystic area in the left epididymal head measuring about 4 x 2 x 6 mm. This may be a complicated cyst or spermatocele. IMPRESSION: Unchanged large hydroceles. There is bilateral testicular blood flow which is fairly symmetric. No torsion. 6 x 3 x 7 mm echogenic area near right epididymal head is unchanged. This may be postinflammatory change. 4 x 2 x 6 mm complex cystic area and left epididymal head, possibly a complicated cyst. The left epididymis is larger than the right. This is unchanged. I cannot exclude left epididymitis
--- NOTE | 2017-11-05 16:21 | Progress Note ---
Assessment and Plan 77 y/o male with acute on chronic respiratory failure, copd exacerbation, thought secondary to pneumonia. 1. Continue steroids at 60q6, will start to taper tomorrow 2. Continue pulmicort and brovana 3. Continue scheduled short acting nebs, will change to PRN 4. Ok with current abx regimen, tapered back by primary to levaquin only. 5. Tolerated lasix well, will give an additional dose today. Thank you for this consult, will continue to follow along with you. Subjective Date of service: 11/05/17 Interval history: Successful extubation on yesterday and now transitioned to floor. Currently on 3 liters and stable. does not appear to have required bipap therapy last night. Objective Vital Signs - 12hr 11/05/17 11/05/17 11/05/17 04:30 07:56 08:00 Temperature 98.6 F 98.5 F Pulse Rate 75 Pulse Rate [ 68 Anterior Bilateral Throughout] Respiratory 18 20 Rate Respiratory 18 Rate [Anterior Bilateral Throughout] Blood Pressure 158/79 161/81 O2 Sat by Pulse 96 Oximetry 11/05/17 11/05/17 11/05/17 08:10 08:22 13:43 Temperature 98.1 F Pulse Rate 84 Pulse Rate [ 70 Anterior Bilateral Throughout] Respiratory 19 Rate Respiratory 18 Rate [Anterior Bilateral Throughout] Blood Pressure 159/91 O2 Sat by Pulse 96 90 Oximetry 11/05/17 11/05/17 15:20 15:27 Temperature Pulse Rate Pulse Rate [ 86 100 H Anterior Bilateral Throughout] Respiratory Rate Respiratory 20 20 Rate [Anterior Bilateral Throughout] Blood Pressure O2 Sat by Pulse Oximetry Constitutional: no acute distress, alert Eyes: non-icteric Neck: supple Effort: normal Ascultation: Bilateral: diminished breath sounds, wheezes Percussion: Bilateral: not dull Cardiovascular: regular rate and rhythm Gastrointestinal: normoactive bowel sounds, soft Integumentary: other Extremities: other Neurologic: normal mental status Psychiatric: mood appropriate CBC and BMP: 11/04/17 04:29 11/04/17 04:29 ABG, PT/INR, D-dimer: ABG POC ABG pH 7.369 (7.35-7.45) 11/04/17 10:25 POC ABG pCO2 53.0 (35-45) H 11/04/17 10:25 POC ABG pO2 67 (80-105) L 11/04/17 10:25 POC ABG HCO3 30.6 11/04/17 10:25 POC ABG Total CO2 32 11/04/17 10:25 POC ABG O2 Sat 92 11/04/17 10:25 PT/INR, D-dimer PT 13.8 Sec. (12.2-14.9) 11/03/17 07:12 INR 1.01 (0.87-1.13) 11/03/17 07:12 Abnormal lab findings: Abnormal Labs 11/03/17 11/03/17 11/03/17 05:31 05:31 06:10 WBC 13.1 H Hgb Hct MCH 27 L MCHC 31 L RDW 16.8 H Lymph % (Auto) 8.6 L [place] % (Auto) 10.9 H Lymph # 1.1 L [place] # 1.4 H Seg Neutrophils % 80.1 H Lymphocytes % (Manual) Seg Neutrophils # 10.5 H Lymphocytes # (Manual) POC ABG pH 7.191 L POC ABG pCO2 84.1 H POC ABG pO2 VBG pH Potassium 5.1 H BUN 23 H Creatinine 0.6 L Glucose 126 H Calcium Albumin 11/03/17 11/03/17 11/03/17 07:12 07:12 07:34 WBC Hgb Hct MCH MCHC RDW Lymph % (Auto) [place] % (Auto) Lymph # [place] # Seg Neutrophils % Lymphocytes % (Manual) Seg Neutrophils # Lymphocytes # (Manual) POC ABG pH 7.294 L POC ABG pCO2 65.0 H POC ABG pO2 67 L VBG pH 7.318 L Potassium BUN 23 H Creatinine 0.6 L Glucose 129 H Calcium Albumin 3.6 L 11/03/17 11/04/17 11/04/17 11:50 04:29 04:29 WBC Hgb 10.6 L Hct 33.0 L MCH 27 L MCHC RDW 16.4 H Lymph % (Auto) [place] % (Auto) Lymph # [place] # Seg Neutrophils % Lymphocytes % (Manual) 7.0 L Seg Neutrophils # Lymphocytes # (Manual) 0.5 L POC ABG pH 7.344 L POC ABG pCO2 53.7 H POC ABG pO2 VBG pH Potassium BUN 21 H Creatinine 0.5 L Glucose 141 H Calcium 8.3 L Albumin 11/04/17 11/04/17 06:07 10:25 WBC Hgb Hct MCH MCHC RDW Lymph % (Auto) [place] % (Auto) Lymph # [place] # Seg Neutrophils % Lymphocytes % (Manual) Seg Neutrophils # Lymphocytes # (Manual) POC ABG pH POC ABG pCO2 54.0 H 53.0 H POC ABG pO2 67 L VBG pH Potassium BUN Creatinine Glucose Calcium Albumin
[2017-11-05] MEDS ORDERED: LASIX IV ONE (17:21)
[2017-11-05] MEDS: NACL 0.9% 1000 ML 1,000 ML IV SCH (23:45)
[2017-11-06] MEDS: DUONEB *Not for PRN Use IH SCH ×4 (01:36→21:30)
[2017-11-06] MEDS: PULMICORT IH SCH ×2 (07:46→21:30)
[2017-11-06] MEDS: BROVANA NEBU IH SCH ×2 (07:47→21:30)
[2017-11-06] MEDS: LOVENOX SUB-Q SCH ×2 (08:18→10:00)
[2017-11-06] MEDS: MORPHINE IV PRN ×3 (08:18→21:37)
[2017-11-06] MEDS ORDERED: MIRALAX 3350 PO PRN (09:31)
[2017-11-06] MEDS: LEVAQUIN 750MG/150ML 750 MG/150 ML BAG IV SCH (09:41)
[2017-11-06] MEDS ORDERED: NON-FORMULARY (Lisinopril [Zestril Tab] 2.5 MG) PO SCH (10:00)
[2017-11-06] MEDS ORDERED: ZESTRIL PO SCH (10:00)
--- NOTE | 2017-11-06 12:45 | Progress Note ---
Assessment and Plan 77 y/o male with acute on chronic respiratory failure, copd exacerbation, thought secondary to pneumonia. 1. Will change steroids to 60q12 2. Continue pulmicort and brovana 3. Continue scheduled short acting nebs, will change to PRN 4. Ok with current abx regimen, tapered back by primary to levaquin only. 5. Would check labs and follow up renal function and K levels given back to back days of lasix therapy and this is not a home medication for this patient. Thank you for this consult, will continue to follow along with you. Subjective Date of service: 11/06/17 Interval history: In room asleep. Comfortable. Lasix given yesterday with good output. Now [facility] has scheduled it. Objective Vital Signs - 12hr 11/06/17 11/06/17 11/06/17 06:03 07:44 07:49 Temperature 98.3 F 97.6 F Pulse Rate 63 76 Pulse Rate [ 75 Anterior Bilateral Throughout] Respiratory 20 19 Rate Respiratory 20 Rate [Anterior Bilateral Throughout] Blood Pressure 155/72 175/81 O2 Sat by Pulse 90 90 90 Oximetry 11/06/17 08:02 Temperature Pulse Rate Pulse Rate [ 96 H Anterior Bilateral Throughout] Respiratory Rate Respiratory 20 Rate [Anterior Bilateral Throughout] Blood Pressure O2 Sat by Pulse Oximetry Constitutional: no acute distress, alert Eyes: non-icteric ENT: other (orally intubated, not sedated) Neck: supple Effort: normal Ascultation: Bilateral: diminished breath sounds, wheezes Percussion: Bilateral: not dull Cardiovascular: regular rate and rhythm Gastrointestinal: normoactive bowel sounds, soft Integumentary: other Extremities: other Neurologic: normal mental status Psychiatric: mood appropriate CBC and BMP: 11/04/17 04:29 11/04/17 04:29 ABG, PT/INR, D-dimer: ABG POC ABG pH 7.369 (7.35-7.45) 11/04/17 10:25 POC ABG pCO2 53.0 (35-45) H 11/04/17 10:25 POC ABG pO2 67 (80-105) L 11/04/17 10:25 POC ABG HCO3 30.6 11/04/17 10:25 POC ABG Total CO2 32 11/04/17 10:25 POC ABG O2 Sat 92 11/04/17 10:25 PT/INR, D-dimer PT 13.8 Sec. (12.2-14.9) 11/03/17 07:12 INR 1.01 (0.87-1.13) 11/03/17 07:12 Abnormal lab findings: Abnormal Labs 11/03/17 11/03/17 11/03/17 05:31 05:31 06:10 WBC 13.1 H Hgb Hct MCH 27 L MCHC 31 L RDW 16.8 H Lymph % (Auto) 8.6 L [place] % (Auto) 10.9 H Lymph # 1.1 L [place] # 1.4 H Seg Neutrophils % 80.1 H Lymphocytes % (Manual) Seg Neutrophils # 10.5 H Lymphocytes # (Manual) POC ABG pH 7.191 L POC ABG pCO2 84.1 H POC ABG pO2 VBG pH Potassium 5.1 H BUN 23 H Creatinine 0.6 L Glucose 126 H Calcium Albumin 11/03/17 11/03/17 11/03/17 07:12 07:12 07:34 WBC Hgb Hct MCH MCHC RDW Lymph % (Auto) [place] % (Auto) Lymph # [place] # Seg Neutrophils % Lymphocytes % (Manual) Seg Neutrophils # Lymphocytes # (Manual) POC ABG pH 7.294 L POC ABG pCO2 65.0 H POC ABG pO2 67 L VBG pH 7.318 L Potassium BUN 23 H Creatinine 0.6 L Glucose 129 H Calcium Albumin 3.6 L 11/03/17 11/04/17 11/04/17 11:50 04:29 04:29 WBC Hgb 10.6 L Hct 33.0 L MCH 27 L MCHC RDW 16.4 H Lymph % (Auto) [place] % (Auto) Lymph # [place] # Seg Neutrophils % Lymphocytes % (Manual) 7.0 L Seg Neutrophils # Lymphocytes # (Manual) 0.5 L POC ABG pH 7.344 L POC ABG pCO2 53.7 H POC ABG pO2 VBG pH Potassium BUN 21 H Creatinine 0.5 L Glucose 141 H Calcium 8.3 L Albumin 11/04/17 11/04/17 06:07 10:25 WBC Hgb Hct MCH MCHC RDW Lymph % (Auto) [place] % (Auto) Lymph # [place] # Seg Neutrophils % Lymphocytes % (Manual) Seg Neutrophils # Lymphocytes # (Manual) POC ABG pH POC ABG pCO2 54.0 H 53.0 H POC ABG pO2 67 L VBG pH Potassium BUN Creatinine Glucose Calcium Albumin
--- NOTE | 2017-11-06 13:00 | Progress Note ---
Assessment and Plan Assessment and plan: Patient is a 74-year-old man from [facility] with history of hypertension OA, COPD, chronic pain syndrome and hypertension presented to ED via EMS for evaluation of respiratory distress/ams. Acute respiratory failure with hypoxia Intubated upon admission and extubated next day Aggressive Nebulizers/Inhalers ABG when necessary Managed By Pulmonary Supportive care Sepsis due to Pneumonia Blood and urine culture collected prior to antibiotic Follow blood cultures Initiated empiric IV Levaquin Supportive care Suspected aspiration Pneumonia Urine culture collected Initiated empiric empiric IV Levaquin Acute COPD exacerbation Continue on Duoneb every 6 hours IV steroid Solumedrol Initiated empiric IV Levaquin Oxygen as necessary Acute metabolic encephalopathy, poa treat the copd Hypertensive urgency Hold home antihypertensive medications for now IV hydralazin for SBP>160 Closely monitor blood pressure Malnutrition Nutrition consult DVT prophylaxis Heparin extubated, probable downgraded from icu if ok with Internvist Scrotal edema with pain get u/s consulted Urology, pt known to Dr. Stone 11/06/17: consulted Cardiology for pre-op evaluation for scrotal surgery, d/w Dr. Stone issue with placement, consult case management History Interval history: Patient was seen and examined. Follow-up on current diagnosis. Overnight uneventful. Patient is now extubated but drowsy.. Imaging, nursing note, chart , labs and old chart reviewed. Discussed with patient. Hospitalist Physical - Physical exam Narrative exam: GEN: Chronic debilitating appearing NAD,lethargic and drowsy but protecting airway on VM HEENT: NCAT, EOMI, PERRL, OP Clear NECK: supple, no adenopathy, no thyromegaly, no JVD CVS/HEART: RRR, NORMAL S1S2, NO JVD, pulses present bilaterally CHEST/LUNGS: Symmetrical chest expansion, diminished air entry bilaterally GI/Abdomen: soft, NTND, good bowel sounds, no guarding or rebound /Bladder: no suprapubic tenderness, no CVA or paraspinal tenderness EXT/Skin: no c/c/e, no obvious rash MSK: FROM x 4 Neuro: CN 2-12 grossly intact, no new focal deficits Psych: calm - Constitutional Vitals: Temp Pulse Resp BP Pulse Ox 97.6 F 96 H 20 175/81 90 11/06/17 07:49 11/06/17 08:02 11/06/17 08:02 11/06/17 07:49 11/06/17 07:49 General appearance: Present: no acute distress Results - Labs CBC & Chem 7: 11/04/17 04:29 11/04/17 04:29 Labs: Laboratory Last Values WBC 7.0 K/mm3 (4.5-11.0) 11/04/17 04:29 RBC 3.93 M/mm3 (3.65-5.03) 11/04/17 04:29 Hgb 10.6 gm/dl (11.8-15.2) L 11/04/17 04:29 Hct 33.0 % (35.5-45.6) L 11/04/17 04:29 MCV 84 fl (84-94) 11/04/17 04:29 MCH 27 pg (28-32) L 11/04/17 04:29 MCHC 32 % (32-34) 11/04/17 04:29 RDW 16.4 % (13.2-15.2) H 11/04/17 04:29 Plt Count 193 K/mm3 (140-440) 11/04/17 04:29 Lymph % (Auto) 8.6 % (13.4-35.0) L 11/03/17 05:31 [place] % (Auto) 10.9 % (0.0-7.3) H 11/03/17 05:31 Eos % (Auto) 0.3 % (0.0-4.3) 11/03/17 05:31 Baso % (Auto) 0.1 % (0.0-1.8) 11/03/17 05:31 Lymph # 1.1 K/mm3 (1.2-5.4) L 11/03/17 05:31 [place] # 1.4 K/mm3 (0.0-0.8) H 11/03/17 05:31 Eos # 0.0 K/mm3 (0.0-0.4) 11/03/17 05:31 Baso # 0.0 K/mm3 (0.0-0.1) 11/03/17 05:31 Add Manual Diff Complete 11/04/17 04:29 Total Counted 100 11/04/17 04:29 Seg Neutrophils % Asl Interpreter 11/04/17 04:29 Seg Neuts % (Manual) 66.0 % (40.0-70.0) 11/04/17 04:29 Band Neutrophils % 22.0 % 11/04/17 04:29 Lymphocytes % (Manual) 7.0 % (13.4-35.0) L 11/04/17 04:29 Reactive Lymphs % (Man) 0 % 11/04/17 04:29 Monocytes % (Manual) 5.0 % (0.0-7.3) 11/04/17 04:29 Eosinophils % (Manual) 0 % (0.0-4.3) 11/04/17 04:29 Basophils % (Manual) 0 % (0.0-1.8) 11/04/17 04:29 Metamyelocytes % 0 % 11/04/17 04:29 Myelocytes % 0 % 11/04/17 04:29 Promyelocytes % 0 % 11/04/17 04:29 Blast Cells % 0 % 11/04/17 04:29 Nucleated RBC % Not Reportable 11/04/17 04:29 Seg Neutrophils # 10.5 K/mm3 (1.8-7.7) H 11/03/17 05:31 Seg Neutrophils # Man 4.6 K/mm3 (1.8-7.7) 11/04/17 04:29 Band Neutrophils # 1.5 K/mm3 11/04/17 04:29 Lymphocytes # (Manual) 0.5 K/mm3 (1.2-5.4) L 11/04/17 04:29 Abs React Lymphs (Man) 0.0 K/mm3 11/04/17 04:29 Monocytes # (Manual) 0.4 K/mm3 (0.0-0.8) 11/04/17 04:29 Eosinophils # (Manual) 0.0 K/mm3 (0.0-0.4) 11/04/17 04:29 Basophils # (Manual) 0.0 K/mm3 (0.0-0.1) 11/04/17 04:29 Metamyelocytes # 0.0 K/mm3 11/04/17 04:29 Myelocytes # 0.0 K/mm3 11/04/17 04:29 Promyelocytes # 0.0 K/mm3 11/04/17 04:29 Blast Cells # 0.0 K/mm3 11/04/17 04:29 WBC Morphology Not Reportable 11/04/17 04:29 Hypersegmented Neuts Not Reportable 11/04/17 04:29 Hyposegmented Neuts Not Reportable 11/04/17 04:29 Hypogranular Neuts Not Reportable 11/04/17 04:29 Smudge Cells Not Reportable 11/04/17 04:29 Toxic Granulation Not Reportable 11/04/17 04:29 Toxic Vacuolation Not Reportable 11/04/17 04:29 Dohle Bodies Not Reportable 11/04/17 04:29 Pel[place]-Huet Anomaly Not Reportable 11/04/17 04:29 [place] Rods Not Reportable 11/04/17 04:29 Platelet Estimate Appears normal 11/04/17 04:29 Clumped Platelets Not Reportable 11/04/17 04:29 Plt Clumps, EDTA Not Reportable 11/04/17 04:29 Large Platelets Not Reportable 11/04/17 04:29 Giant Platelets Not Reportable 11/04/17 04:29 Platelet Satelliting Not Reportable 11/04/17 04:29 Plt Morphology Comment Not Reportable 11/04/17 04:29 RBC Morphology Not Reportable 11/04/17 04:29 Dimorphic RBCs Not Reportable 11/04/17 04:29 Polychromasia Not Reportable 11/04/17 04:29 Hypochromasia 1+ 11/04/17 04:29 Poikilocytosis Not Reportable 11/04/17 04:29 Anisocytosis 1+ 11/04/17 04:29 Microcytosis Not Reportable 11/04/17 04:29 Macrocytosis Not Reportable 11/04/17 04:29 Spherocytes Not Reportable 11/04/17 04:29 Pappenheimer Bodies Not Reportable 11/04/17 04:29 Sickle Cells Not Reportable 11/04/17 04:29 Target Cells Not Reportable 11/04/17 04:29 Tear Drop Cells Not Reportable 11/04/17 04:29 Ovalocytes Few 11/04/17 04:29 Helmet Cells Not Reportable 11/04/17 04:29 [place] Bodies Not Reportable 11/04/17 04:29 [place] Rings Not Reportable 11/04/17 04:29 [place] Cells Not Reportable 11/04/17 04:29 Bite Cells Not Reportable 11/04/17 04:29 Crenated Cell Not Reportable 11/04/17 04:29 Elliptocytes Not Reportable 11/04/17 04:29 Acanthocytes (Spur) Not Reportable 11/04/17 04:29 Rouleaux Not Reportable 11/04/17 04:29 Hemoglobin C Crystals Not Reportable 11/04/17 04:29 Schistocytes Not Reportable 11/04/17 04:29 Malaria parasites Not Reportable 11/04/17 04:29 [place] Bodies Not Reportable 11/04/17 04:29 Hem Pathologist Commnt No 11/04/17 04:29 PT 13.8 Sec. (12.2-14.9) 11/03/17 07:12 INR 1.01 (0.87-1.13) 11/03/17 07:12 POC ABG pH 7.369 (7.35-7.45) 11/04/17 10:25 POC ABG pCO2 53.0 (35-45) H 11/04/17 10:25 POC ABG pO2 67 (80-105) L 11/04/17 10:25 POC ABG HCO3 30.6 11/04/17 10:25 POC ABG Total CO2 32 11/04/17 10:25 POC ABG O2 Sat 92 11/04/17 10:25 POC ABG Base Excess 5 11/04/17 10:25 VBG pH 7.318 (7.320-7.420) L 11/03/17 07:12 FiO2 40 % 11/04/17 10:25 Sodium 142 mmol/L (137-145) 11/04/17 04:29 Potassium 4.4 mmol/L (3.6-5.0) 11/04/17 04:29 Chloride 103.6 mmol/L (98-107) 11/04/17 04:29 Carbon Dioxide 27 mmol/L (22-30) 11/04/17 04:29 Anion Gap 16 mmol/L 11/04/17 04:29 BUN 21 mg/dL (9-20) H 11/04/17 04:29 Creatinine 0.5 mg/dL (0.8-1.5) L 11/04/17 04:29 Estimated GFR > 60 ml/min 11/04/17 04:29 BUN/Creatinine Ratio 42 % 11/04/17 04:29 Glucose 141 mg/dL (75-100) H 11/04/17 04:29 Lactic Acid 0.90 mmol/L (0.7-2.0) 11/03/17 09:30 Calcium 8.3 mg/dL (8.4-10.2) L 11/04/17 04:29 Total Bilirubin 0.30 mg/dL (0.1-1.2) 11/03/17 07:12 AST 17 units/L (5-40) 11/03/17 07:12 ALT 12 units/L (7-56) 11/03/17 07:12 Alkaline Phosphatase 97 units/L (35-129) 11/03/17 07:12 Troponin T 0.015 ng/mL (0.00-0.029) 11/03/17 05:31 Total Protein 7.1 g/dL (6.3-8.2) 11/03/17 07:12 Albumin 3.6 g/dL (3.9-5) L 11/03/17 07:12 Albumin/Globulin Ratio 1.0 % 11/03/17 07:12 Urine Color Yellow (Yellow) 11/03/17 Unknown Urine Turbidity Clear (Clear) 11/03/17 Unknown Urine pH 5.0 (5.0-7.0) 11/03/17 Unknown Ur Specific [place] 1.018 (1.003-1.030) 11/03/17 Unknown Urine Protein <15 mg/dl mg/dL (Negative) 11/03/17 Unknown Urine Glucose (UA) Neg mg/dL (Negative) 11/03/17 Unknown Urine Ketones Tr mg/dL (Negative) 11/03/17 Unknown Urine Blood Neg (Negative) 11/03/17 Unknown Urine Nitrite Neg (Negative) 11/03/17 Unknown Urine Bilirubin Neg (Negative) 11/03/17 Unknown Urine Urobilinogen < 2.0 mg/dL (<2.0) 11/03/17 Unknown Ur Leukocyte Esterase Neg (Negative) 11/03/17 Unknown Urine WBC (Auto) 1.0 /HPF (0.0-6.0) 11/03/17 Unknown Urine RBC (Auto) 1.0 /HPF (0.0-6.0) 11/03/17 Unknown U Epithel Cells (Auto) < 1.0 /HPF (0-13.0) 11/03/17 Unknown Hyaline Casts 1 /LPF 11/03/17 Unknown Urine Mucus Few /HPF 11/03/17 Unknown
[2017-11-06] MEDS: NORVASC PO SCH (13:08)
[2017-11-06] MEDS: LASIX PO SCH (13:09)
[2017-11-06] MEDS: LOPRESSOR PO SCH ×2 (13:10→21:39)
[2017-11-06] MEDS: NEURONTIN PO SCH ×2 (13:10→21:37)
--- NOTE | 2017-11-06 14:38 | Consultation ---
History of Present Illness Consult date: 11/06/17 Requesting physician: CLIVE AGUAYO Consult reason: pre op evaluation History of present illness: The patient has a history of COPD and uses home oxygen at 3 L by nasal cannula. He is a senior living resident. He claims that he developed shortness of breath had a senior living on the day of presentation. He was brought to the emergency department on account of respiratory distress and altered sensorium. He was reportedly intubated in the emergency department and placed on mechanical ventilation. He subsequently improved and was extubated. The patient denies chest pain. His complaint at this time is scrotal pain. Testicular ultrasound revealed large bilateral hydroceles. He is being considered for surgery at this time. Past History Past Medical History: arthritis, COPD, heart failure, hypertension, stroke, other (chronic respiratory failure on home oxygen at 3 L by nasal cannula) Past Surgical History: No surgical history Social history: . denies: smoking, alcohol abuse Family history: denies: CAD Medications and Allergies Allergies Allergy/AdvReac Type Severity Reaction Status Date / Time Penicillins Allergy Mild Itching Verified 02/21/15 18:30 doxycycline Allergy Hives Verified 11/03/17 05:18 Sulfa (Sulfonamide Allergy Hives Verified 11/03/17 05:18 Antibiotics) sulfamethoxazole Allergy Hives Verified 11/03/17 05:18 [From Bactrim] trimethoprim [From Bactrim] Allergy Hives Verified 11/03/17 05:18 Home Medications Medication Instructions Recorded Confirmed Last Taken Type Prednisone 10 mg PO QDAY #21 tablet 02/26/15 11/03/17 Unknown Rx Aspirin [Adult Low Dose Aspirin EC] 81 mg PO DAILY 11/03/17 11/03/17 Unknown History Atorvastatin Calcium [Lipitor] 10 mg PO DAILY 11/03/17 11/03/17 Unknown History Benzonatate [Tessalon Perle] 100 mg PO TID 11/03/17 11/03/17 Unknown History Diphenhydramine HCl [Complete 25 mg PO Q6H PRN 11/03/17 11/03/17 Unknown History Allergy] Fluticasone [Flonase] 1 spray NS QDAY 11/03/17 11/03/17 Unknown History Furosemide [Lasix] 20 mg PO QDAY 11/03/17 11/03/17 Unknown History Gabapentin [Neurontin] 100 mg PO Q8HR 11/03/17 11/03/17 Unknown History Lisinopril [Zestril TAB] 2.5 mg PO QDAY 11/03/17 11/03/17 Unknown History Methadone [Dolophine] 20 mg PO Q8H 11/03/17 11/03/17 Unknown History Metoprolol Tartrate 25 mg PO BID 11/03/17 11/03/17 Unknown History Polyethylene Glycol 3350 [Miralax 17 gm PO QDAY 11/03/17 11/03/17 Unknown History 3350] Tamsulosin [Flomax] 0.4 mg PO QDAY 11/03/17 11/03/17 Unknown History amLODIPine [Norvasc] 5 mg PO DAILY 11/03/17 11/03/17 Unknown History Active Meds: Active Medications Acetaminophen (Tylenol) 650 mg PO Q4H PRN PRN Reason: Pain MILD(1-3)/Fever >100.5/FLANAGAN Albuterol (Proventil) 2.5 mg IH Q4HRT PRN PRN Reason: Shortness Of Breath Albuterol/Ipratropium (Duoneb *Not For Prn Use*) 1 ampul IH Q6HRT [facility] Last Admin: 11/06/17 07:47 Dose: Not Given Amlodipine Besylate (Norvasc) 5 mg PO DAILY [facility] Last Admin: 11/06/17 13:08 Dose: 5 mg Arformoterol Tartrate (Brovana Nebu) 15 mcg IH Q12HRT [facility] Last Admin: 11/06/17 07:47 Dose: 15 mcg Atorvastatin Calcium (Lipitor) 10 mg PO QHS [facility] Bisacodyl (Dulcolax) 10 mg GA QDAY PRN PRN Reason: Constipation unrelieved by MOM Budesonide (Pulmicort) 0.5 mg IH Q12HRT [facility] Last Admin: 11/06/17 07:46 Dose: 0.5 mg Enoxaparin Sodium (Lovenox) 40 mg SUB-Q QDAY [facility] Last Admin: 11/06/17 10:00 Dose: Not Given Furosemide (Lasix) 20 mg PO QDAY [facility] Last Admin: 11/06/17 13:09 Dose: 20 mg Gabapentin (Neurontin) 100 mg PO Q8HR [facility] Last Admin: 11/06/17 13:10 Dose: 100 mg Levofloxacin/Dextrose (Levaquin 750mg/150ml) 750 mg in 150 mls @ 100 mls/hr IV Q24HR [facility] PRN Reason: Protocol Last Admin: 11/06/17 09:41 Dose: 100 mls/hr Sodium Chloride (Nacl 0.9% 1000 Ml) 1,000 mls @ 75 mls/hr IV DIRECT KRISTY Last Admin: 11/05/17 23:45 Dose: 75 mls/hr Propofol (Diprivan 10 Mg/Ml) 1,000 mg in 100 mls @ 2.232 mls/hr IV TITR KRISTY; 5 MCG/KG/MIN PRN Reason: Protocol Last Titration: 11/04/17 18:32 Dose: Infused Lisinopril (Zestril) 2.5 mg PO QDAY [facility] Last Admin: 11/06/17 13:06 Dose: 2.5 mg Methylprednisolone Sodium Succinate (Solu-Medrol) 60 mg IV Q6HR [facility] Last Admin: 11/06/17 13:09 Dose: 60 mg Metoprolol Tartrate (Lopressor) 25 mg PO BID [facility] Last Admin: 11/06/17 13:10 Dose: 25 mg Morphine Sulfate (Morphine) 2 mg IV Q4H PRN PRN Reason: Pain, Moderate (4-6) Last Admin: 11/06/17 13:16 Dose: 2 mg Polyethylene Glycol (Miralax 3350) 17 gm PO QDAY PRN PRN Reason: Constipation Tamsulosin HCl (Flomax) 0.4 mg PO QHS [facility] Review of Systems Constitutional: no fever, no chills Ears, nose, mouth and throat: no ear pain, no ear discharge, no sore throat Cardiovascular: shortness of breath, no chest pain, no palpitations, no lightheadedness Respiratory: shortness of breath, no cough, no hemoptysis Gastrointestinal: no abdominal pain, no nausea, no vomiting, no diarrhea, no constipation Genitourinary Male: testicular pain, other (scrotal pain and swelling), no dysuria, no urinary frequency Rectal: no pain, no bleeding Musculoskeletal: no neck stiffness, no neck pain, no myalgias Integumentary: no rash, no pruritis Neurological: no weakness, no parathesias, no numbness, no headaches Endocrine: no cold intolerance, no heat intolerance Hematologic/Lymphatic: no easy bruising, no easy bleeding Allergic/Immunologic: no urticaria, no wheezing Physical Examination Vital Signs Last Vital Signs Temp 97.6 F 11/06/17 07:49 Pulse 76 11/06/17 13:08 Resp 20 11/06/17 08:02 BP 175/81 11/06/17 13:08 Pulse Ox 90 11/06/17 07:49 General appearance: no acute distress HEENT: Positive: EOMI, Normocephaly, Mucus Membranes Moist Neck: Positive: neck supple, trachea midline Cardiac: Positive: Reg Rate and Rhythm, S1/S2 Lungs: Positive: Rhonchi Neuro: Positive: Grossly Intact Abdomen: Positive: Soft, Active Bowel Sounds. Negative: Tender Male genitourinary: Positive: scrotal edema Skin: Positive: Clear. Negative: Rash Musculoskeletal: Normal Range of Motion Extremities: Present: normal. Absent: edema Results 11/04/17 04:29 11/04/17 04:29 - Imaging and Cardiology EKG: image reviewed EKG interpretations - Telemetry EKG Rhythm: 2nd Degree HB(Mobitz II) - EKG Sinus rhythms and dysrhythmias: sinus tachycardia Assessment and Plan I will optimize his antihypertensive regimen. Obtain echocardiogram, especially with his reported history of heart failure. He will benefit from pulmonary evaluation as well. His preoperative cardiac evaluation will be completed after reviewing his echocardiogram. - Patient Problems (1) Preoperative cardiovascular examination Current Visit: Yes Status: Acute (2) Hydrocele, bilateral Current Visit: Yes Status: Acute (3) Acute on chronic respiratory failure Current Visit: Yes Status: Acute (4) COPD exacerbation Current Visit: Yes Status: Acute (5) Hypertension Current Visit: Yes Status: Chronic Qualifiers: Hypertension type: essential hypertension Qualified Code(s): I10 - Essential (primary) hypertension
[2017-11-06] MEDS: NACL 0.9% 1000 ML 1,000 ML IV SCH (16:16)
[2017-11-06] MEDS: FLOMAX PO SCH (21:36)
[2017-11-06] MEDS: ZESTRIL PO SCH (21:38)
[2017-11-07] MEDS: DUONEB *Not for PRN Use IH SCH ×3 (01:14→22:47)
[2017-11-07] MEDS: NACL 0.9% 1000 ML 1,000 ML IV SCH ×2 (05:49→21:25)
[2017-11-07] MEDS: NEURONTIN PO SCH ×3 (05:50→21:27)
[2017-11-07] MEDS: MORPHINE IV PRN ×2 (05:51→15:41)
--- NOTE | 2017-11-07 09:25 | Consultation ---
History of Present Illness - Reason for Consult Consult date: 11/07/17 - History of Present Illness The patient has a history of COPD and uses home oxygen at 3 L by nasal cannula. He is a assisted resident. He claims that he developed shortness of breath had a assisted on the day of presentation. He was brought to the emergency department on account of respiratory distress and altered sensorium. He was reportedly intubated in the emergency department and placed on mechanical ventilation. He subsequently improved and was extubated. The patient denies chest pain. His complaint at this time is scrotal pain. Testicular ultrasound revealed large bilateral hydroceles. SEEN IN THE OFFICE ROSA HUNT MD----PCP / 02 PER NC / [employer]/ HTN - COPD - CHF / RT TESTES PAIN BRONSON (07-27-17) BILAT HYDRO----RT> LEFT , EPIDIDYMITIS GENT, CIPRO, PERCOCET NEEDS MEDICAL CLEARANCE FOR BILAT HYDROCELECTOMY Past History Past Medical History: arthritis, COPD, heart failure, hypertension, stroke, other (chronic respiratory failure on home oxygen at 3 L by nasal cannula) Past Surgical History: No surgical history Social history: . denies: smoking, alcohol abuse Family history: denies: CAD Medications and Allergies Allergies Allergy/AdvReac Type Severity Reaction Status Date / Time Penicillins Allergy Mild Itching Verified 02/21/15 18:30 doxycycline Allergy Hives Verified 11/03/17 05:18 Sulfa (Sulfonamide Allergy Hives Verified 11/03/17 05:18 Antibiotics) sulfamethoxazole Allergy Hives Verified 11/03/17 05:18 [From Bactrim] trimethoprim [From Bactrim] Allergy Hives Verified 11/03/17 05:18 Home Medications Medication Instructions Recorded Confirmed Last Taken Type Prednisone 10 mg PO QDAY #21 tablet 02/26/15 11/03/17 Unknown Rx Aspirin [Adult Low Dose Aspirin EC] 81 mg PO DAILY 11/03/17 11/03/17 Unknown History Atorvastatin Calcium [Lipitor] 10 mg PO DAILY 11/03/17 11/03/17 Unknown History Benzonatate [Tessalon Perle] 100 mg PO TID 11/03/17 11/03/17 Unknown History Diphenhydramine HCl [Complete 25 mg PO Q6H PRN 11/03/17 11/03/17 Unknown History Allergy] Fluticasone [Flonase] 1 spray NS QDAY 11/03/17 11/03/17 Unknown History Furosemide [Lasix] 20 mg PO QDAY 11/03/17 11/03/17 Unknown History Gabapentin [Neurontin] 100 mg PO Q8HR 11/03/17 11/03/17 Unknown History Lisinopril [Zestril TAB] 2.5 mg PO QDAY 11/03/17 11/03/17 Unknown History Methadone [Dolophine] 20 mg PO Q8H 11/03/17 11/03/17 Unknown History Metoprolol Tartrate 25 mg PO BID 11/03/17 11/03/17 Unknown History Polyethylene Glycol 3350 [Miralax 17 gm PO QDAY 11/03/17 11/03/17 Unknown History 3350] Tamsulosin [Flomax] 0.4 mg PO QDAY 11/03/17 11/03/17 Unknown History amLODIPine [Norvasc] 5 mg PO DAILY 11/03/17 11/03/17 Unknown History Active Meds: Active Medications Acetaminophen (Tylenol) 650 mg PO Q4H PRN PRN Reason: Pain MILD(1-3)/Fever >100.5/FLANAGAN Albuterol (Proventil) 2.5 mg IH Q4HRT PRN PRN Reason: Shortness Of Breath Albuterol/Ipratropium (Duoneb *Not For Prn Use*) 1 ampul IH Q6HRT [facility] Last Admin: 11/07/17 01:14 Dose: Not Given Amlodipine Besylate (Norvasc) 5 mg PO DAILY [facility] Last Admin: 11/06/17 13:08 Dose: 5 mg Arformoterol Tartrate (Brovana Nebu) 15 mcg IH Q12HRT [facility] Last Admin: 11/06/17 21:30 Dose: 15 mcg Atorvastatin Calcium (Lipitor) 10 mg PO QHS [facility] Last Admin: 11/06/17 21:37 Dose: 10 mg Bisacodyl (Dulcolax) 10 mg MA QDAY PRN PRN Reason: Constipation unrelieved by MOM Budesonide (Pulmicort) 0.5 mg IH Q12HRT [facility] Last Admin: 11/06/17 21:30 Dose: 0.5 mg Enoxaparin Sodium (Lovenox) 40 mg SUB-Q QDAY [facility] Last Admin: 11/06/17 10:00 Dose: Not Given Furosemide (Lasix) 20 mg PO QDAY [facility] Last Admin: 11/06/17 13:09 Dose: 20 mg Gabapentin (Neurontin) 100 mg PO Q8HR [facility] Last Admin: 11/07/17 05:50 Dose: 100 mg Levofloxacin/Dextrose (Levaquin 750mg/150ml) 750 mg in 150 mls @ 100 mls/hr IV Q24HR KRISTY PRN Reason: Protocol Last Admin: 11/06/17 09:41 Dose: 100 mls/hr Sodium Chloride (Nacl 0.9% 1000 Ml) 1,000 mls @ 75 mls/hr IV DIRECT KRISTY Last Admin: 11/07/17 05:49 Dose: 75 mls/hr Propofol (Diprivan 10 Mg/Ml) 1,000 mg in 100 mls @ 2.232 mls/hr IV TITR KRISTY; 5 MCG/KG/MIN PRN Reason: Protocol Last Titration: 11/04/17 18:32 Dose: Infused Lisinopril (Zestril) 2.5 mg PO BID [facility] Last Admin: 11/06/17 21:38 Dose: 2.5 mg Methylprednisolone Sodium Succinate (Solu-Medrol) 60 mg IV Q6HR [facility] Last Admin: 11/07/17 05:50 Dose: 60 mg Metoprolol Tartrate (Lopressor) 25 mg PO BID [facility] Last Admin: 11/06/17 21:39 Dose: 25 mg Morphine Sulfate (Morphine) 2 mg IV Q4H PRN PRN Reason: Pain, Moderate (4-6) Last Admin: 11/07/17 05:51 Dose: 2 mg Polyethylene Glycol (Miralax 3350) 17 gm PO QDAY PRN PRN Reason: Constipation Tamsulosin HCl (Flomax) 0.4 mg PO QHS [facility] Last Admin: 11/06/17 21:36 Dose: 0.4 mg Exam - Constitutional Vitals: Temp Pulse Resp BP Pulse Ox 98.3 F 79 20 161/79 92 11/07/17 09:09 11/07/17 09:09 11/07/17 09:09 11/07/17 09:09 11/07/17 09:09 Results - Labs CBC & Chem 7: 11/04/17 04:29 11/04/17 04:29
[2017-11-07] MEDS: BROVANA NEBU IH SCH ×2 (10:09→22:46)
[2017-11-07] MEDS: PULMICORT IH SCH ×2 (10:09→22:47)
--- NOTE | 2017-11-07 11:14 | Progress Note ---
Assessment and Plan Assessment and plan: Patient is a 74-year-old man from [facility] with history of hypertension OA, COPD, chronic pain syndrome and hypertension presented to ED via EMS for evaluation of respiratory distress/ams. Acute respiratory failure with hypoxia Intubated upon admission 11/03 and extubated next day Aggressive Nebulizers/Inhalers ABG when necessary Managed By Pulmonary Supportive care Sepsis due to Pneumonia Blood and urine culture collected prior to antibiotic Follow blood cultures Initiated empiric IV Levaquin Supportive care Suspected aspiration Pneumonia Urine culture collected Initiated empiric empiric IV Levaquin Acute COPD exacerbation Continue on Duoneb every 6 hours IV steroid Solumedrol Initiated empiric IV Levaquin Oxygen as necessary Acute metabolic encephalopathy, poa treat the copd Hypertensive urgency Hold home antihypertensive medications for now IV hydralazin for SBP>160 Closely monitor blood pressure Malnutrition Nutrition consult DVT prophylaxis Heparin extubated, probable downgraded from icu if ok with Internvist Scrotal edema with pain get u/s consulted Urology, pt known to Dr. Stone 11/06/17: consulted Cardiology for pre-op evaluation for scrotal surgery, d/w Dr. Stone issue with placement, consult case management 11/07/17: d/w Pulmonology, Dr. Sharma yesterday, regarding pre-op pulm eval. ECHO pending. History Interval history: Patient was seen and examined. Follow-up on current diagnosis. Overnight uneventful. Patient is now extubated but drowsy.. Imaging, nursing note, chart , labs and old chart reviewed. Discussed with patient. Hospitalist Physical - Physical exam Narrative exam: GEN: Chronic debilitating appearing NAD,lethargic and drowsy but protecting airway on VM HEENT: NCAT, EOMI, PERRL, OP Clear NECK: supple, no adenopathy, no thyromegaly, no JVD CVS/HEART: RRR, NORMAL S1S2, NO JVD, pulses present bilaterally CHEST/LUNGS: Symmetrical chest expansion, diminished air entry bilaterally GI/Abdomen: soft, NTND, good bowel sounds, no guarding or rebound /Bladder: no suprapubic tenderness, no CVA or paraspinal tenderness EXT/Skin: no c/c/e, no obvious rash MSK: FROM x 4 Neuro: CN 2-12 grossly intact, no new focal deficits Psych: calm - Constitutional Vitals: Temp Pulse Resp BP Pulse Ox 98.3 F 79 20 161/79 92 11/07/17 09:09 11/07/17 09:09 11/07/17 09:09 11/07/17 09:09 11/07/17 09:09 General appearance: Present: no acute distress Results - Labs CBC & Chem 7: 11/04/17 04:29 11/04/17 04:29 Labs: Laboratory Last Values WBC 7.0 K/mm3 (4.5-11.0) 11/04/17 04:29 RBC 3.93 M/mm3 (3.65-5.03) 11/04/17 04:29 Hgb 10.6 gm/dl (11.8-15.2) L 11/04/17 04:29 Hct 33.0 % (35.5-45.6) L 11/04/17 04:29 MCV 84 fl (84-94) 11/04/17 04:29 MCH 27 pg (28-32) L 11/04/17 04:29 MCHC 32 % (32-34) 11/04/17 04:29 RDW 16.4 % (13.2-15.2) H 11/04/17 04:29 Plt Count 193 K/mm3 (140-440) 11/04/17 04:29 Lymph % (Auto) 8.6 % (13.4-35.0) L 11/03/17 05:31 [place] % (Auto) 10.9 % (0.0-7.3) H 11/03/17 05:31 Eos % (Auto) 0.3 % (0.0-4.3) 11/03/17 05:31 Baso % (Auto) 0.1 % (0.0-1.8) 11/03/17 05:31 Lymph # 1.1 K/mm3 (1.2-5.4) L 11/03/17 05:31 [place] # 1.4 K/mm3 (0.0-0.8) H 11/03/17 05:31 Eos # 0.0 K/mm3 (0.0-0.4) 11/03/17 05:31 Baso # 0.0 K/mm3 (0.0-0.1) 11/03/17 05:31 Add Manual Diff Complete 11/04/17 04:29 Total Counted 100 12/08/17 04:29 Seg Neutrophils % Acquisition Lead 11/04/17 04:29 Seg Neuts % (Manual) 66.0 % (40.0-70.0) 11/04/17 04:29 Band Neutrophils % 22.0 % 11/04/17 04:29 Lymphocytes % (Manual) 7.0 % (13.4-35.0) L 11/04/17 04:29 Reactive Lymphs % (Man) 0 % 11/04/17 04:29 Monocytes % (Manual) 5.0 % (0.0-7.3) 11/04/17 04:29 Eosinophils % (Manual) 0 % (0.0-4.3) 11/04/17 04:29 Basophils % (Manual) 0 % (0.0-1.8) 11/04/17 04:29 Metamyelocytes % 0 % 11/04/17 04:29 Myelocytes % 0 % 11/04/17 04:29 Promyelocytes % 0 % 11/04/17 04:29 Blast Cells % 0 % 11/04/17 04:29 Nucleated RBC % Not Reportable 11/04/17 04:29 Seg Neutrophils # 10.5 K/mm3 (1.8-7.7) H 11/03/17 05:31 Seg Neutrophils # Man 4.6 K/mm3 (1.8-7.7) 11/04/17 04:29 Band Neutrophils # 1.5 K/mm3 11/04/17 04:29 Lymphocytes # (Manual) 0.5 K/mm3 (1.2-5.4) L 11/04/17 04:29 Abs React Lymphs (Man) 0.0 K/mm3 11/04/17 04:29 Monocytes # (Manual) 0.4 K/mm3 (0.0-0.8) 11/04/17 04:29 Eosinophils # (Manual) 0.0 K/mm3 (0.0-0.4) 11/04/17 04:29 Basophils # (Manual) 0.0 K/mm3 (0.0-0.1) 11/04/17 04:29 Metamyelocytes # 0.0 K/mm3 11/04/17 04:29 Myelocytes # 0.0 K/mm3 11/04/17 04:29 Promyelocytes # 0.0 K/mm3 11/04/17 04:29 Blast Cells # 0.0 K/mm3 11/04/17 04:29 WBC Morphology Not Reportable 11/04/17 04:29 Hypersegmented Neuts Not Reportable 11/04/17 04:29 Hyposegmented Neuts Not Reportable 11/04/17 04:29 Hypogranular Neuts Not Reportable 11/04/17 04:29 Smudge Cells Not Reportable 11/04/17 04:29 Toxic Granulation Not Reportable 11/04/17 04:29 Toxic Vacuolation Not Reportable 11/04/17 04:29 Dohle Bodies Not Reportable 11/04/17 04:29 Pelger-Huet Anomaly Not Reportable 11/04/17 04:29 [place] Rods Not Reportable 11/04/17 04:29 Platelet Estimate Appears normal 11/04/17 04:29 Clumped Platelets Not Reportable 11/04/17 04:29 Plt Clumps, EDTA Not Reportable 11/04/17 04:29 Large Platelets Not Reportable 11/04/17 04:29 Giant Platelets Not Reportable 11/04/17 04:29 Platelet Satelliting Not Reportable 11/04/17 04:29 Plt Morphology Comment Not Reportable 11/04/17 04:29 RBC Morphology Not Reportable 11/04/17 04:29 Dimorphic RBCs Not Reportable 11/04/17 04:29 Polychromasia Not Reportable 11/04/17 04:29 Hypochromasia 1+ 11/04/17 04:29 Poikilocytosis Not Reportable 11/04/17 04:29 Anisocytosis 1+ 11/04/17 04:29 Microcytosis Not Reportable 11/04/17 04:29 Macrocytosis Not Reportable 11/04/17 04:29 Spherocytes Not Reportable 11/04/17 04:29 Pappenheimer Bodies Not Reportable 11/04/17 04:29 Sickle Cells Not Reportable 11/04/17 04:29 Target Cells Not Reportable 11/04/17 04:29 Tear Drop Cells Not Reportable 11/04/17 04:29 Ovalocytes Few 11/04/17 04:29 Helmet Cells Not Reportable 11/04/17 04:29 [place] Bodies Not Reportable 11/04/17 04:29 [place] Rings Not Reportable 11/04/17 04:29 Arias Cells Not Reportable 11/04/17 04:29 Bite Cells Not Reportable 11/04/17 04:29 Crenated Cell Not Reportable 11/04/17 04:29 Elliptocytes Not Reportable 11/04/17 04:29 Acanthocytes (Spur) Not Reportable 11/04/17 04:29 Rouleaux Not Reportable 11/04/17 04:29 Hemoglobin C Crystals Not Reportable 11/04/17 04:29 Schistocytes Not Reportable 11/04/17 04:29 Malaria parasites Not Reportable 11/04/17 04:29 Danny Bodies Not Reportable 11/04/17 04:29 Hem Pathologist Commnt No 11/04/17 04:29 PT 13.8 Sec. (12.2-14.9) 11/03/17 07:12 INR 1.01 (0.87-1.13) 11/03/17 07:12 POC ABG pH 7.369 (7.35-7.45) 11/04/17 10:25 POC ABG pCO2 53.0 (35-45) H 11/04/17 10:25 POC ABG pO2 67 (80-105) L 11/04/17 10:25 POC ABG HCO3 30.6 11/04/17 10:25 POC ABG Total CO2 32 11/04/17 10:25 POC ABG O2 Sat 92 11/04/17 10:25 POC ABG Base Excess 5 11/04/17 10:25 VBG pH 7.318 (7.320-7.420) L 11/03/17 07:12 FiO2 40 % 11/04/17 10:25 Sodium 142 mmol/L (137-145) 11/04/17 04:29 Potassium 4.4 mmol/L (3.6-5.0) 11/04/17 04:29 Chloride 103.6 mmol/L (98-107) 11/04/17 04:29 Carbon Dioxide 27 mmol/L (22-30) 11/04/17 04:29 Anion Gap 16 mmol/L 11/04/17 04:29 BUN 21 mg/dL (9-20) H 11/04/17 04:29 Creatinine 0.5 mg/dL (0.8-1.5) L 11/04/17 04:29 Estimated GFR > 60 ml/min 11/04/17 04:29 BUN/Creatinine Ratio 42 % 11/04/17 04:29 Glucose 141 mg/dL (75-100) H 11/04/17 04:29 Lactic Acid 0.90 mmol/L (0.7-2.0) 11/03/17 09:30 Calcium 8.3 mg/dL (8.4-10.2) L 11/04/17 04:29 Total Bilirubin 0.30 mg/dL (0.1-1.2) 11/03/17 07:12 AST 17 units/L (5-40) 11/03/17 07:12 ALT 12 units/L (7-56) 11/03/17 07:12 Alkaline Phosphatase 97 units/L (35-129) 11/03/17 07:12 Troponin T 0.015 ng/mL (0.00-0.029) 11/03/17 05:31 Total Protein 7.1 g/dL (6.3-8.2) 11/03/17 07:12 Albumin 3.6 g/dL (3.9-5) L 11/03/17 07:12 Albumin/Globulin Ratio 1.0 % 11/03/17 07:12 Urine Color Yellow (Yellow) 11/03/17 Unknown Urine Turbidity Clear (Clear) 11/03/17 Unknown Urine pH 5.0 (5.0-7.0) 11/03/17 Unknown Ur Specific [place] 1.018 (1.003-1.030) 11/03/17 Unknown Urine Protein <15 mg/dl mg/dL (Negative) 11/03/17 Unknown Urine Glucose (UA) Neg mg/dL (Negative) 11/03/17 Unknown Urine Ketones Tr mg/dL (Negative) 11/03/17 Unknown Urine Blood Neg (Negative) 11/03/17 Unknown Urine Nitrite Neg (Negative) 11/03/17 Unknown Urine Bilirubin Neg (Negative) 11/03/17 Unknown Urine Urobilinogen < 2.0 mg/dL (<2.0) 11/03/17 Unknown Ur Leukocyte Esterase Neg (Negative) 11/03/17 Unknown Urine WBC (Auto) 1.0 /HPF (0.0-6.0) 11/03/17 Unknown Urine RBC (Auto) 1.0 /HPF (0.0-6.0) 11/03/17 Unknown U Epithel Cells (Auto) < 1.0 /HPF (0-13.0) 11/03/17 Unknown Hyaline Casts 1 /LPF 11/03/17 Unknown Urine Mucus Few /HPF 11/03/17 Unknown
[2017-11-07] MEDS: LOVENOX SUB-Q SCH (11:25)
[2017-11-07] MEDS: ZESTRIL PO SCH ×2 (11:25→21:27)
[2017-11-07] MEDS: NORVASC PO SCH (11:26)
[2017-11-07] MEDS: LOPRESSOR PO SCH ×2 (11:26→21:27)
[2017-11-07] MEDS: LASIX PO SCH (11:26)
[2017-11-07] MEDS: LEVAQUIN PO SCH (11:27)
[2017-11-07] MEDS: LEVAQUIN 750MG/150ML 750 MG/150 ML BAG IV SCH (11:50)
--- NOTE | 2017-11-07 12:50 | Progress Note ---
Assessment and Plan Acute on chronic respiratory failure. Status post COPD exacerbation with intubation/mechanical ventilation support episode Pneumonia, completing antibiotics Advanced emphysema. On chronic oxygen support at home. Bilateral hydrocele, pending surgery Recommendations Pending echo review evaluation report Continue nebulizer therapy with either albuterol or DuoNeb every 4 hours IV steroids Plan continue with Pulmicort/Brovan, as recommended by Dr. Sharma. I was also asked by [facility], to provide a pulmonary opinion regarding his risk for surgery. If the patient continues to improve, he become probably move forward with surgery for his hydrocele. He is at least a moderate to elevated pulmonary risk for surgery, must be on the look out and preparations done for postoperative respiratory failure exacerbation. This including need for reintubation and mechanical ventilation support. I discussed this risk with the patient and family at the bedside in detail. They both understand that the patient is in pain and he wants some correction of his problem. Will continue follow-up. Subjective Date of service: 11/07/17 Interval history: Patient reports his breathing is better today. Still some dyspnea upon exertion. No active coughing, minimal wheezing. Using oxygen 2-3 L/m via nasal cannula Objective Vital Signs - 12hr 11/07/17 11/07/17 11/07/17 05:46 05:51 06:21 Temperature 97.6 F Pulse Rate 77 Respiratory 20 20 18 Rate Blood Pressure 161/80 O2 Sat by Pulse 92 Oximetry 11/07/17 11/07/17 11/07/17 09:09 11:25 11:26 Temperature 98.3 F Pulse Rate 79 79 79 Respiratory 20 Rate Blood Pressure 161/79 161/79 161/79 O2 Sat by Pulse 92 Oximetry Constitutional: no acute distress, alert Eyes: non-icteric Neck: supple, no lymphadenopathy, no JVD Effort: normal Ascultation: Bilateral: diminished breath sounds, wheezes (very mild sporadic) Percussion: Bilateral: not dull Cardiovascular: regular rate and rhythm Gastrointestinal: normoactive bowel sounds, soft Integumentary: other Extremities: other Neurologic: normal mental status Psychiatric: mood appropriate CBC and BMP: 11/04/17 04:29 11/04/17 04:29 ABG, PT/INR, D-dimer: ABG POC ABG pH 7.369 (7.35-7.45) 11/04/17 10:25 POC ABG pCO2 53.0 (35-45) H 11/04/17 10:25 POC ABG pO2 67 (80-105) L 11/04/17 10:25 POC ABG HCO3 30.6 11/04/17 10:25 POC ABG Total CO2 32 11/04/17 10:25 POC ABG O2 Sat 92 11/04/17 10:25 PT/INR, D-dimer PT 13.8 Sec. (12.2-14.9) 11/03/17 07:12 INR 1.01 (0.87-1.13) 11/03/17 07:12 Abnormal lab findings: Abnormal Labs 11/03/17 11/03/17 11/03/17 05:31 05:31 06:10 WBC 13.1 H Hgb Hct MCH 27 L MCHC 31 L RDW 16.8 H Lymph % (Auto) 8.6 L [place] % (Auto) 10.9 H Lymph # 1.1 L [place] # 1.4 H Seg Neutrophils % 80.1 H Lymphocytes % (Manual) Seg Neutrophils # 10.5 H Lymphocytes # (Manual) POC ABG pH 7.191 L POC ABG pCO2 84.1 H POC ABG pO2 VBG pH Potassium 5.1 H BUN 23 H Creatinine 0.6 L Glucose 126 H Calcium Albumin 11/03/17 11/03/17 11/03/17 07:12 07:12 07:34 WBC Hgb Hct MCH MCHC RDW Lymph % (Auto) [place] % (Auto) Lymph # [place] # Seg Neutrophils % Lymphocytes % (Manual) Seg Neutrophils # Lymphocytes # (Manual) POC ABG pH 7.294 L POC ABG pCO2 65.0 H POC ABG pO2 67 L VBG pH 7.318 L Potassium BUN 23 H Creatinine 0.6 L Glucose 129 H Calcium Albumin 3.6 L 11/03/17 11/04/17 11/04/17 11:50 04:29 04:29 WBC Hgb 10.6 L Hct 33.0 L MCH 27 L MCHC RDW 16.4 H Lymph % (Auto) [place] % (Auto) Lymph # [place] # Seg Neutrophils % Lymphocytes % (Manual) 7.0 L Seg Neutrophils # Lymphocytes # (Manual) 0.5 L POC ABG pH 7.344 L POC ABG pCO2 53.7 H POC ABG pO2 VBG pH Potassium BUN 21 H Creatinine 0.5 L Glucose 141 H Calcium 8.3 L Albumin 11/04/17 11/04/17 06:07 10:25 WBC Hgb Hct MCH MCHC RDW Lymph % (Auto) [place] % (Auto) Lymph # [place] # Seg Neutrophils % Lymphocytes % (Manual) Seg Neutrophils # Lymphocytes # (Manual) POC ABG pH POC ABG pCO2 54.0 H 53.0 H POC ABG pO2 67 L VBG pH Potassium BUN Creatinine Glucose Calcium Albumin Chest x-ray: report reviewed, image reviewed
--- NOTE | 2017-11-07 13:27 | Progress Note ---
Assessment and Plan Optimize anti-hypertensive regimen. Await echo. His preoperative cardiac evaluation will be completed after reviewing his echocardiogram. The patient has been seen in conjunction with Dr. Sosa who agrees with the assessment and plan of care. - Patient Problems (1) Preoperative cardiovascular examination Current Visit: Yes Status: Acute (2) Acute on chronic respiratory failure Current Visit: Yes Status: Acute (3) Pneumonia Current Visit: Yes Status: Acute (4) COPD exacerbation Current Visit: Yes Status: Acute (5) Hydrocele, bilateral Current Visit: Yes Status: Acute (6) Hypertension Current Visit: Yes Status: Chronic Qualifiers: Hypertension type: essential hypertension Qualified Code(s): I10 - Essential (primary) hypertension Subjective Date of service: 11/07/17 Principal diagnosis: acute on chronic respiratory failure; PNA; COPD exacerbation Interval history: Pt resting comfortably in bed, no current cardiac complaints. VSS. Objective Last Vital Signs Temp 98.3 F 11/07/17 09:09 Pulse 79 11/07/17 11:26 Resp 20 11/07/17 09:09 BP 161/79 11/07/17 11:26 Pulse Ox 92 11/07/17 09:09 - Physical Examination HEENT: Positive: EOMI, Normocephaly, Mucus Membranes Moist Neck: Positive: neck supple, trachea midline Cardiac: Positive: Reg Rate and Rhythm, S1/S2 Lungs: Positive: Decreased Breath Sounds Neuro: Positive: Grossly Intact Abdomen: Positive: Soft, Active Bowel Sounds. Negative: Tender Skin: Positive: Clear. Negative: Rash Musculoskeletal: Normal Range of Motion Extremities: Present: normal. Absent: edema - Imaging and Cardiology EKG: image reviewed - EKG Sinus rhythms and dysrhythmias: sinus tachycardia
[2017-11-07] MEDS ORDERED: NORVASC PO SCH (13:29)
[2017-11-07] MEDS ORDERED: NORVASC PO ONE ×2 (13:30→21:00)
[2017-11-07] MEDS: DOLOPHINE PO SCH (20:08)
[2017-11-07] MEDS: FLOMAX PO SCH (21:27)
[2017-11-08] MEDS: DOLOPHINE PO SCH ×4 (01:08→23:01)
[2017-11-08] MEDS: DUONEB *Not for PRN Use IH SCH ×4 (02:12→20:25)
[2017-11-08] MEDS: NEURONTIN PO SCH ×3 (07:10→22:48)
[2017-11-08] MEDS: PULMICORT IH SCH ×2 (07:30→20:25)
[2017-11-08] MEDS: BROVANA NEBU IH SCH ×2 (07:30→20:25)
[2017-11-08] MEDS: LOPRESSOR PO SCH ×2 (09:24→22:48)
[2017-11-08] MEDS: ZESTRIL PO SCH ×2 (09:25→22:46)
[2017-11-08] MEDS: NORVASC PO SCH (09:25)
[2017-11-08] MEDS: LASIX PO SCH (09:25)
[2017-11-08] MEDS: LOVENOX SUB-Q SCH (09:26)
--- NOTE | 2017-11-08 09:46 | Progress Note ---
Assessment and Plan Echo reviewed - EF 45-50%, mild LVH, RA mildly dilated, mild TR, mild pulm HTN, RVSP 46mmHg. Pt is currently at moderate cardiovascular risk for bilateral hydrocelectomy. There are no immediate cardiac contraindications to proceeding with procedure at this time. The patient has been seen in conjunction with Dr. Sosa who agrees with the assessment and plan of care. - Patient Problems (1) Preoperative cardiovascular examination Current Visit: Yes Status: Acute (2) Acute on chronic respiratory failure Current Visit: Yes Status: Acute (3) Pneumonia Current Visit: Yes Status: Acute (4) COPD exacerbation Current Visit: Yes Status: Acute (5) Hydrocele, bilateral Current Visit: Yes Status: Acute (6) Hypertension Current Visit: Yes Status: Chronic Qualifiers: Hypertension type: essential hypertension Qualified Code(s): I10 - Essential (primary) hypertension (7) Pulmonary HTN Current Visit: Yes Status: Chronic Subjective Date of service: 11/08/17 Principal diagnosis: acute on chronic respiratory failure; PNA; COPD exacerbation Interval history: Pt resting comfortably in bed, no current cardiac complaints. VSS. Objective Last Vital Signs Temp 98.0 F 11/08/17 07:27 Pulse 85 11/08/17 07:40 Resp 18 11/08/17 07:40 BP 140/72 11/08/17 09:25 Pulse Ox 95 11/08/17 07:31 - Physical Examination General: No Apparent Distress HEENT: Positive: EOMI, Normocephaly, Mucus Membranes Moist Neck: Positive: neck supple, trachea midline Cardiac: Positive: Reg Rate and Rhythm, S1/S2 Lungs: Positive: Decreased Breath Sounds Neuro: Positive: Grossly Intact Abdomen: Positive: Soft, Active Bowel Sounds. Negative: Tender Skin: Positive: Clear. Negative: Rash Musculoskeletal: Normal Range of Motion Extremities: Present: normal. Absent: edema - Imaging and Cardiology EKG: image reviewed - EKG Sinus rhythms and dysrhythmias: sinus tachycardia
[2017-11-08] MEDS ORDERED: NORVASC PO SCH (10:00)
[2017-11-08] MEDS: LEVAQUIN PO SCH (10:54)
[2017-11-08] MEDS: NACL 0.9% 1000 ML 1,000 ML IV SCH ×2 (10:55→23:00)
--- NOTE | 2017-11-08 11:22 | Progress Note ---
Assessment and Plan Assessment and plan: Patient is a 74-year-old man from [facility] with history of hypertension OA, COPD, chronic pain syndrome and hypertension presented to ED via EMS for evaluation of respiratory distress/ams. Acute respiratory failure with hypoxia Intubated upon admission 11/03 and extubated next day Aggressive Nebulizers/Inhalers ABG when necessary Managed By Pulmonary Supportive care Sepsis due to Pneumonia Blood and urine culture collected prior to antibiotic Follow blood cultures Initiated empiric IV Levaquin Supportive care Suspected aspiration Pneumonia Urine culture collected Initiated empiric empiric IV Levaquin Acute COPD exacerbation Continue on Duoneb every 6 hours IV steroid Solumedrol Initiated empiric IV Levaquin Oxygen as necessary Acute metabolic encephalopathy, poa treat the copd Hypertensive urgency Hold home antihypertensive medications for now IV hydralazin for SBP>160 Closely monitor blood pressure Malnutrition Nutrition consult DVT prophylaxis Heparin extubated, probable downgraded from icu if ok with Internvist Scrotal edema with pain get u/s consulted Urology, pt known to Dr. Stone 11/06/17: consulted Cardiology for pre-op evaluation for scrotal surgery, d/w Dr. Stone issue with placement, consult case management 11/07/17: d/w Pulmonology, Dr. Sharma yesterday, regarding pre-op pulm eval. ECHO pending. 11/08/17: per Pulmonology, Dr. Manzano: "Acute on chronic respiratory failure. Status post COPD exacerbation with intubation/mechanical ventilation support episode Pneumonia, completing antibiotics Advanced emphysema. On chronic oxygen support at home. Bilateral hydrocele, pending surgery Recommendations Pending echo review evaluation report Continue nebulizer therapy with either albuterol or DuoNeb every 4 hours IV steroids Plan continue with Pulmicort/Brovan, as recommended by Dr. Sharma. I was also asked by [facility], to provide a pulmonary opinion regarding his risk for surgery. If the patient continues to improve, he become probably move forward with surgery for his hydrocele. He is at least a moderate to elevated pulmonary risk for surgery, must be on the look out and preparations done for postoperative respiratory failure exacerbation. This including need for reintubation and mechanical ventilation support. I discussed this risk with the patient and family at the bedside in detail. They both understand that the patient is in pain and he wants some correction of his problem." per Cardiology, Dr. Sosa: "Echo reviewed - EF 45-50%, mild LVH, RA mildly dilated, mild TR, mild pulm HTN, RVSP 46mmHg. Pt is currently at moderate cardiovascular risk for bilateral hydrocelectomy. There are no immediate cardiac contraindications to proceeding with procedure at this time. The patient has been seen in conjunction with Dr. Sosa who agrees with the assessment and plan of care." I notified her Levuin Dr. Stone that pre-op had been done. Disposition is a problem, patient has exhausted his short-term rehabilitation days at [facility], case management is seeking long -term nursing care if approved by his insurance. It appears patient is homeless. History Interval history: Patient was seen and examined. Follow-up on current diagnosis. Overnight uneventful. Patient is now extubated but drowsy.. Imaging, nursing note, chart , labs and old chart reviewed. Discussed with patient. Hospitalist Physical - Physical exam Narrative exam: GEN: Chronic debilitating appearing NAD,lethargic and drowsy but protecting airway on VM HEENT: NCAT, EOMI, PERRL, OP Clear NECK: supple, no adenopathy, no thyromegaly, no JVD CVS/HEART: RRR, NORMAL S1S2, NO JVD, pulses present bilaterally CHEST/LUNGS: Symmetrical chest expansion, diminished air entry bilaterally GI/Abdomen: soft, NTND, good bowel sounds, no guarding or rebound /Bladder: no suprapubic tenderness, no CVA or paraspinal tenderness EXT/Skin: no c/c/e, no obvious rash MSK: FROM x 4 Neuro: CN 2-12 grossly intact, no new focal deficits Psych: calm - Constitutional Vitals: Temp Pulse Resp BP Pulse Ox 98.0 F 85 18 140/72 95 11/08/17 07:27 11/08/17 07:40 11/08/17 07:40 11/08/17 09:25 11/08/17 07:31 General appearance: Present: no acute distress Results - Labs CBC & Chem 7: 11/04/17 04:29 11/04/17 04:29 Labs: Laboratory Last Values WBC 7.0 K/mm3 (4.5-11.0) 11/04/17 04:29 RBC 3.93 M/mm3 (3.65-5.03) 11/04/17 04:29 Hgb 10.6 gm/dl (11.8-15.2) L 11/04/17 04:29 Hct 33.0 % (35.5-45.6) L 11/04/17 04:29 MCV 84 fl (84-94) 11/04/17 04:29 MCH 27 pg (28-32) L 11/04/17 04:29 MCHC 32 % (32-34) 11/04/17 04:29 RDW 16.4 % (13.2-15.2) H 11/04/17 04:29 Plt Count 193 K/mm3 (140-440) 11/04/17 04:29 Lymph % (Auto) 8.6 % (13.4-35.0) L 11/03/17 05:31 Cecil % (Auto) 10.9 % (0.0-7.3) H 11/03/17 05:31 Eos % (Auto) 0.3 % (0.0-4.3) 11/03/17 05:31 Baso % (Auto) 0.1 % (0.0-1.8) 11/03/17 05:31 Lymph # 1.1 K/mm3 (1.2-5.4) L 11/03/17 05:31 [place] # 1.4 K/mm3 (0.0-0.8) H 11/03/17 05:31 Eos # 0.0 K/mm3 (0.0-0.4) 11/03/17 05:31 Baso # 0.0 K/mm3 (0.0-0.1) 11/03/17 05:31 Add Manual Diff Complete 11/04/17 04:29 Total Counted 100 11/04/17 04:29 Seg Neutrophils % Occupational Therapy Asst 11/04/17 04:29 Seg Neuts % (Manual) 66.0 % (40.0-70.0) 11/04/17 04:29 Band Neutrophils % 22.0 % 11/04/17 04:29 Lymphocytes % (Manual) 7.0 % (13.4-35.0) L 11/04/17 04:29 Reactive Lymphs % (Man) 0 % 11/04/17 04:29 Monocytes % (Manual) 5.0 % (0.0-7.3) 11/04/17 04:29 Eosinophils % (Manual) 0 % (0.0-4.3) 11/04/17 04:29 Basophils % (Manual) 0 % (0.0-1.8) 11/04/17 04:29 Metamyelocytes % 0 % 11/04/17 04:29 Myelocytes % 0 % 11/04/17 04:29 Promyelocytes % 0 % 11/04/17 04:29 Blast Cells % 0 % 11/04/17 04:29 Nucleated RBC % Not Reportable 11/04/17 04:29 Seg Neutrophils # 10.5 K/mm3 (1.8-7.7) H 11/03/17 05:31 Seg Neutrophils # Man 4.6 K/mm3 (1.8-7.7) 11/04/17 04:29 Band Neutrophils # 1.5 K/mm3 11/04/17 04:29 Lymphocytes # (Manual) 0.5 K/mm3 (1.2-5.4) L 11/04/17 04:29 Abs React Lymphs (Man) 0.0 K/mm3 11/04/17 04:29 Monocytes # (Manual) 0.4 K/mm3 (0.0-0.8) 11/04/17 04:29 Eosinophils # (Manual) 0.0 K/mm3 (0.0-0.4) 11/04/17 04:29 Basophils # (Manual) 0.0 K/mm3 (0.0-0.1) 11/04/17 04:29 Metamyelocytes # 0.0 K/mm3 11/04/17 04:29 Myelocytes # 0.0 K/mm3 11/04/17 04:29 Promyelocytes # 0.0 K/mm3 11/04/17 04:29 Blast Cells # 0.0 K/mm3 11/04/17 04:29 WBC Morphology Not Reportable 11/04/17 04:29 Hypersegmented Neuts Not Reportable 11/04/17 04:29 Hyposegmented Neuts Not Reportable 11/04/17 04:29 Hypogranular Neuts Not Reportable 11/04/17 04:29 Smudge Cells Not Reportable 11/04/17 04:29 Toxic Granulation Not Reportable 11/04/17 04:29 Toxic Vacuolation Not Reportable 11/04/17 04:29 Dohle Bodies Not Reportable 11/04/17 04:29 Pelger-Huet Anomaly Not Reportable 11/04/17 04:29 Tanmay Rods Not Reportable 11/04/17 04:29 Platelet Estimate Appears normal 11/04/17 04:29 Clumped Platelets Not Reportable 11/04/17 04:29 Plt Clumps, EDTA Not Reportable 11/04/17 04:29 Large Platelets Not Reportable 11/04/17 04:29 Giant Platelets Not Reportable 11/04/17 04:29 Platelet Satelliting Not Reportable 11/04/17 04:29 Plt Morphology Comment Not Reportable 11/04/17 04:29 RBC Morphology Not Reportable 11/04/17 04:29 Dimorphic RBCs Not Reportable 11/04/17 04:29 Polychromasia Not Reportable 11/04/17 04:29 Hypochromasia 1+ 11/04/17 04:29 Poikilocytosis Not Reportable 11/04/17 04:29 Anisocytosis 1+ 11/04/17 04:29 Microcytosis Not Reportable 11/04/17 04:29 Macrocytosis Not Reportable 11/04/17 04:29 Spherocytes Not Reportable 11/04/17 04:29 Pappenheimer Bodies Not Reportable 11/04/17 04:29 Sickle Cells Not Reportable 11/04/17 04:29 Target Cells Not Reportable 11/04/17 04:29 Tear Drop Cells Not Reportable 11/04/17 04:29 Ovalocytes Few 11/04/17 04:29 Helmet Cells Not Reportable 11/04/17 04:29 Castro-Lavinia Bodies Not Reportable 11/04/17 04:29 Kimberly Rings Not Reportable 11/04/17 04:29 [place] Cells Not Reportable 11/04/17 04:29 Bite Cells Not Reportable 11/04/17 04:29 Crenated Cell Not Reportable 11/04/17 04:29 Elliptocytes Not Reportable 11/04/17 04:29 Acanthocytes (Spur) Not Reportable 11/04/17 04:29 Rouleaux Not Reportable 11/04/17 04:29 Hemoglobin C Crystals Not Reportable 11/04/17 04:29 Schistocytes Not Reportable 11/04/17 04:29 Malaria parasites Not Reportable 11/04/17 04:29 Danny Bodies Not Reportable 11/04/17 04:29 Hem Pathologist Commnt No 11/04/17 04:29 PT 13.8 Sec. (12.2-14.9) 11/03/17 07:12 INR 1.01 (0.87-1.13) 11/03/17 07:12 POC ABG pH 7.369 (7.35-7.45) 11/04/17 10:25 POC ABG pCO2 53.0 (35-45) H 11/04/17 10:25 POC ABG pO2 67 (80-105) L 11/04/17 10:25 POC ABG HCO3 30.6 11/04/17 10:25 POC ABG Total CO2 32 11/04/17 10:25 POC ABG O2 Sat 92 11/04/17 10:25 POC ABG Base Excess 5 11/04/17 10:25 VBG pH 7.318 (7.320-7.420) L 11/03/17 07:12 FiO2 40 % 11/04/17 10:25 Sodium 142 mmol/L (137-145) 11/04/17 04:29 Potassium 4.4 mmol/L (3.6-5.0) 11/04/17 04:29 Chloride 103.6 mmol/L (98-107) 11/04/17 04:29 Carbon Dioxide 27 mmol/L (22-30) 11/04/17 04:29 Anion Gap 16 mmol/L 11/04/17 04:29 BUN 21 mg/dL (9-20) H 11/04/17 04:29 Creatinine 0.5 mg/dL (0.8-1.5) L 11/04/17 04:29 Estimated GFR > 60 ml/min 11/04/17 04:29 BUN/Creatinine Ratio 42 % 11/04/17 04:29 Glucose 141 mg/dL (75-100) H 11/04/17 04:29 Lactic Acid 0.90 mmol/L (0.7-2.0) 11/03/17 09:30 Calcium 8.3 mg/dL (8.4-10.2) L 11/04/17 04:29 Total Bilirubin 0.30 mg/dL (0.1-1.2) 11/03/17 07:12 AST 17 units/L (5-40) 11/03/17 07:12 ALT 12 units/L (7-56) 11/03/17 07:12 Alkaline Phosphatase 97 units/L (35-129) 11/03/17 07:12 Troponin T 0.015 ng/mL (0.00-0.029) 11/03/17 05:31 Total Protein 7.1 g/dL (6.3-8.2) 11/03/17 07:12 Albumin 3.6 g/dL (3.9-5) L 11/03/17 07:12 Albumin/Globulin Ratio 1.0 % 11/03/17 07:12 Urine Color Yellow (Yellow) 11/03/17 Unknown Urine Turbidity Clear (Clear) 11/03/17 Unknown Urine pH 5.0 (5.0-7.0) 11/03/17 Unknown Ur Specific Llewellyn 1.018 (1.003-1.030) 11/03/17 Unknown Urine Protein <15 mg/dl mg/dL (Negative) 11/03/17 Unknown Urine Glucose (UA) Neg mg/dL (Negative) 11/03/17 Unknown Urine Ketones Tr mg/dL (Negative) 11/03/17 Unknown Urine Blood Neg (Negative) 11/03/17 Unknown Urine Nitrite Neg (Negative) 11/03/17 Unknown Urine Bilirubin Neg (Negative) 11/03/17 Unknown Urine Urobilinogen < 2.0 mg/dL (<2.0) 11/03/17 Unknown Ur Leukocyte Esterase Neg (Negative) 11/03/17 Unknown Urine WBC (Auto) 1.0 /HPF (0.0-6.0) 11/03/17 Unknown Urine RBC (Auto) 1.0 /HPF (0.0-6.0) 11/03/17 Unknown U Epithel Cells (Auto) < 1.0 /HPF (0-13.0) 11/03/17 Unknown Hyaline Casts 1 /LPF 11/03/17 Unknown Urine Mucus Few /HPF 11/03/17 Unknown
--- NOTE | 2017-11-08 13:04 | Progress Note ---
Assessment and Plan Acute on chronic respiratory failure. s/p intubation, vent support. Controlled Status post COPD exacerbation Pneumonia, completing antibiotics Advanced emphysema. On chronic oxygen support at home. Bilateral hydrocele, pending surgery CAD.See cards note. Echo noted Recommendations Continue nebulizer therapy with either albuterol or DuoNeb every 4 hours Continue IV steroids if surgery planned Plan continue with Pulmicort/Brovana f/u on cards recommendations Will continue close f/u. Appears to be better, improving , if surgery is been scheduled Subjective Date of service: 11/08/17 Principal diagnosis: acute on chronic respiratory failure; PNA; COPD exacerbation Interval history: States breathing is better today. No wheezing, SOB is improved. complains about hospital food- prefers ice cream Objective Vital Signs - 12hr 11/08/17 11/08/17 11/08/17 01:08 02:08 04:15 Temperature 98.0 F Pulse Rate Pulse Rate [ Anterior Bilateral Throughout] Respiratory 16 20 18 Rate Respiratory Rate [Anterior Bilateral Throughout] Blood Pressure 143/71 O2 Sat by Pulse Oximetry 11/08/17 11/08/17 11/08/17 07:27 07:31 07:40 Temperature 98.0 F Pulse Rate 56 L Pulse Rate [ 84 85 Anterior Bilateral Throughout] Respiratory 18 Rate Respiratory 18 18 Rate [Anterior Bilateral Throughout] Blood Pressure 140/72 O2 Sat by Pulse 92 95 Oximetry 11/08/17 11/08/17 09:24 09:25 Temperature Pulse Rate Pulse Rate [ Anterior Bilateral Throughout] Respiratory Rate Respiratory Rate [Anterior Bilateral Throughout] Blood Pressure 140/72 140/72 O2 Sat by Pulse Oximetry Constitutional: no acute distress, alert Eyes: non-icteric Neck: supple, no lymphadenopathy, no JVD Effort: normal Ascultation: Bilateral: clear, diminished breath sounds Percussion: Bilateral: not dull Cardiovascular: regular rate and rhythm Gastrointestinal: normoactive bowel sounds, soft Integumentary: other Extremities: other Neurologic: normal mental status Psychiatric: mood appropriate CBC and BMP: 11/04/17 04:29 11/04/17 04:29 ABG, PT/INR, D-dimer: ABG POC ABG pH 7.369 (7.35-7.45) 11/04/17 10:25 POC ABG pCO2 53.0 (35-45) H 11/04/17 10:25 POC ABG pO2 67 (80-105) L 11/04/17 10:25 POC ABG HCO3 30.6 11/04/17 10:25 POC ABG Total CO2 32 11/04/17 10:25 POC ABG O2 Sat 92 11/04/17 10:25 PT/INR, D-dimer PT 13.8 Sec. (12.2-14.9) 11/03/17 07:12 INR 1.01 (0.87-1.13) 11/03/17 07:12 Abnormal lab findings: Abnormal Labs 11/03/17 11/03/17 11/03/17 05:31 05:31 06:10 WBC 13.1 H Hgb Hct MCH 27 L MCHC 31 L RDW 16.8 H Lymph % (Auto) 8.6 L [place] % (Auto) 10.9 H Lymph # 1.1 L [place] # 1.4 H Seg Neutrophils % 80.1 H Lymphocytes % (Manual) Seg Neutrophils # 10.5 H Lymphocytes # (Manual) POC ABG pH 7.191 L POC ABG pCO2 84.1 H POC ABG pO2 VBG pH Potassium 5.1 H BUN 23 H Creatinine 0.6 L Glucose 126 H Calcium Albumin 11/03/17 11/03/17 11/03/17 07:12 07:12 07:34 WBC Hgb Hct MCH MCHC RDW Lymph % (Auto) [place] % (Auto) Lymph # [place] # Seg Neutrophils % Lymphocytes % (Manual) Seg Neutrophils # Lymphocytes # (Manual) POC ABG pH 7.294 L POC ABG pCO2 65.0 H POC ABG pO2 67 L VBG pH 7.318 L Potassium BUN 23 H Creatinine 0.6 L Glucose 129 H Calcium Albumin 3.6 L 11/03/17 11/04/17 11/04/17 11:50 04:29 04:29 WBC Hgb 10.6 L Hct 33.0 L MCH 27 L MCHC RDW 16.4 H Lymph % (Auto) [place] % (Auto) Lymph # [place] # Seg Neutrophils % Lymphocytes % (Manual) 7.0 L Seg Neutrophils # Lymphocytes # (Manual) 0.5 L POC ABG pH 7.344 L POC ABG pCO2 53.7 H POC ABG pO2 VBG pH Potassium BUN 21 H Creatinine 0.5 L Glucose 141 H Calcium 8.3 L Albumin 11/04/17 11/04/17 06:07 10:25 WBC Hgb Hct MCH MCHC RDW Lymph % (Auto) [place] % (Auto) Lymph # [place] # Seg Neutrophils % Lymphocytes % (Manual) Seg Neutrophils # Lymphocytes # (Manual) POC ABG pH POC ABG pCO2 54.0 H 53.0 H POC ABG pO2 67 L VBG pH Potassium BUN Creatinine Glucose Calcium Albumin
--- NOTE | 2017-11-08 16:24 | Anesthesia Consultation ---
Anesthesia Consult and Med Hx Date of service: 11/09/17 - Airway Anesthetic Teeth Evaluation: Edentulous ROM Head & Neck: Adequate Mental/Hyoid Distance: Adequate Mallampati Class: Class I Intubation Access Assessment: Probably Good - Pre-Operative Health Status ASA Pre-Surgery Classification: ASA3 Proposed Anesthetic Plan: General, Spinal, MAC - Pulmonary Hx Smoking: Yes (quit 14 years ago) SOB: Yes COPD: Yes (resp failure) Hx Sleep Apnea: Yes - Cardiovascular System Hx Hypertension: Yes Hx Coronary Artery Disease: No Hx Heart Attack/AMI: No Hx Angina: No Hx Percutaneous Transluminal Coronary Angioplasty (PTCA): No Hx Pacemaker: No Hx Internal Defibrillator: No Hx Valvular Heart Disease: No Hx Peripheral Vascular Disease: No - Central Nervous System Hx Seizures: No 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
--- NOTE | 2017-11-08 17:17 | Progress Note ---
Subjective Date of service: 11/08/17 Principal diagnosis: acute on chronic respiratory failure; PNA; COPD exacerbation Interval history: The patient has a history of COPD and uses home oxygen at 3 L by nasal cannula. He is a [place]. He claims that he developed shortness of breath had a correction on the day of presentation. He was brought to the emergency department on account of respiratory distress and altered sensorium. He was reportedly intubated in the emergency department and placed on mechanical ventilation. He subsequently improved and was extubated. The patient denies chest pain. His complaint at this time is scrotal pain. Testicular ultrasound revealed large bilateral hydroceles. SEEN IN THE OFFICE ROSA HUNT MD----PCP / 02 PER NC / MOTOR WHEELCHAIR/ HTN - COPD - CHF / RT TESTES PAIN [facility] (07-27-17) BILAT HYDRO----RT> LEFT , EPIDIDYMITIS GENT, CIPRO, PERCOCET CLEARED BY CARDS & PULMONARY FOR BILAT HYDROCELECTOMY Objective - Constitutional Vitals: Vital Signs - 12hr 11/08/17 11/08/17 11/08/17 07:27 07:31 07:40 Temperature 98.0 F Pulse Rate 56 L Pulse Rate [ 84 85 Anterior Bilateral Throughout] Respiratory 18 Rate Respiratory 18 18 Rate [Anterior Bilateral Throughout] Blood Pressure 140/72 O2 Sat by Pulse 92 95 Oximetry 11/08/17 11/08/17 11/08/17 09:24 09:25 13:37 Temperature Pulse Rate Pulse Rate [ 88 Anterior Bilateral Throughout] Respiratory Rate Respiratory 18 Rate [Anterior Bilateral Throughout] Blood Pressure 140/72 140/72 O2 Sat by Pulse Oximetry 11/08/17 11/08/17 13:45 13:47 Temperature 98.3 F Pulse Rate 72 Pulse Rate [ 87 Anterior Bilateral Throughout] Respiratory 20 Rate Respiratory 18 Rate [Anterior Bilateral Throughout] Blood Pressure 128/62 O2 Sat by Pulse 90 Oximetry - Labs CBC & Chem 7: 11/04/17 04:29 11/04/17 04:29
[2017-11-08] MEDS: FLOMAX PO SCH (22:48)
[2017-11-09] MEDS: DUONEB *Not for PRN Use IH SCH ×4 (01:28→20:43)
[2017-11-09] MEDS: NEURONTIN PO SCH ×3 (06:04→23:01)
[2017-11-09] MEDS ORDERED: FLAGYL 500 MG/100 ML 500 MG/100 ML BAG IV NR (07:00)
[2017-11-09] MEDS: PULMICORT IH SCH ×2 (07:17→20:42)
[2017-11-09] MEDS: BROVANA NEBU IH SCH ×2 (07:17→20:42)
[2017-11-09] MEDS: DOLOPHINE PO SCH ×2 (09:00→16:00)
[2017-11-09] MEDS: LOPRESSOR PO SCH ×3 (10:31→23:01)
[2017-11-09] MEDS: LASIX PO SCH (10:32)
[2017-11-09] MEDS: ZESTRIL PO SCH ×3 (10:33→23:01)
[2017-11-09] MEDS: NORVASC PO SCH ×2 (10:33→11:00)
[2017-11-09] MEDS: LEVAQUIN PO SCH (10:34)
[2017-11-09] MEDS: LOVENOX SUB-Q SCH (11:00)
--- NOTE | 2017-11-09 11:50 | Progress Note ---
Assessment and Plan Assessment and plan: Patient is a 74-year-old man from [facility] with history of hypertension OA, COPD, chronic pain syndrome and hypertension presented to ED via EMS for evaluation of respiratory distress/ams. Acute respiratory failure with hypoxia Intubated upon admission 11/03 and extubated next day Aggressive Nebulizers/Inhalers ABG when necessary Managed By Pulmonary Supportive care Sepsis due to Pneumonia Blood and urine culture collected prior to antibiotic Follow blood cultures Initiated empiric IV Levaquin Supportive care Suspected aspiration Pneumonia Urine culture collected Initiated empiric empiric IV Levaquin Acute COPD exacerbation Continue on Duoneb every 6 hours IV steroid Solumedrol Initiated empiric IV Levaquin Oxygen as necessary Acute metabolic encephalopathy, poa treat the copd Hypertensive urgency Hold home antihypertensive medications for now IV hydralazin for SBP>160 Closely monitor blood pressure Malnutrition Nutrition consult DVT prophylaxis Heparin extubated, probable downgraded from icu if ok with Internvist Scrotal edema with pain get u/s consulted Urology, pt known to Dr. Stone 11/06/17: consulted Cardiology for pre-op evaluation for scrotal surgery, d/w Dr. Stone issue with placement, consult case management 11/07/17: d/w Pulmonology, Dr. Sharma yesterday, regarding pre-op pulm eval. ECHO pending. 11/08/17: per Pulmonology, Dr. Manzano: "Acute on chronic respiratory failure. Status post COPD exacerbation with intubation/mechanical ventilation support episode Pneumonia, completing antibiotics Advanced emphysema. On chronic oxygen support at home. Bilateral hydrocele, pending surgery Recommendations Pending echo review evaluation report Continue nebulizer therapy with either albuterol or DuoNeb every 4 hours IV steroids Plan continue with Pulmicort/Brovan, as recommended by Dr. Sharma. I was also asked by [facility], to provide a pulmonary opinion regarding his risk for surgery. If the patient continues to improve, he become probably move forward with surgery for his hydrocele. He is at least a moderate to elevated pulmonary risk for surgery, must be on the look out and preparations done for postoperative respiratory failure exacerbation. This including need for reintubation and mechanical ventilation support. I discussed this risk with the patient and family at the bedside in detail. They both understand that the patient is in pain and he wants some correction of his problem." per Cardiology, Dr. Sosa: "Echo reviewed - EF 45-50%, mild LVH, RA mildly dilated, mild TR, mild pulm HTN, RVSP 46mmHg. Pt is currently at moderate cardiovascular risk for bilateral hydrocelectomy. There are no immediate cardiac contraindications to proceeding with procedure at this time. The patient has been seen in conjunction with Dr. Sosa who agrees with the assessment and plan of care." I notified, Urologist, Dr. Stone that pre-op had been done. Disposition is a problem, patient has exhausted his short-term rehabilitation days at [facility], case management is seeking long -term nursing care if approved by his insurance. It appears patient is homeless. Going for bilateral hydrocelectomy today History Interval history: Patient was seen and examined. Follow-up on current diagnosis. Overnight uneventful. Patient is now extubated but drowsy.. Imaging, nursing note, chart , labs and old chart reviewed. Discussed with patient. Hospitalist Physical - Physical exam Narrative exam: GEN: Chronic debilitating appearing NAD,lethargic and drowsy but protecting airway on VM HEENT: NCAT, EOMI, PERRL, OP Clear NECK: supple, no adenopathy, no thyromegaly, no JVD CVS/HEART: RRR, NORMAL S1S2, NO JVD, pulses present bilaterally CHEST/LUNGS: Symmetrical chest expansion, diminished air entry bilaterally GI/Abdomen: soft, NTND, good bowel sounds, no guarding or rebound /Bladder: no suprapubic tenderness, no CVA or paraspinal tenderness EXT/Skin: no c/c/e, no obvious rash MSK: FROM x 4 Neuro: CN 2-12 grossly intact, no new focal deficits Psych: calm - Constitutional Vitals: Temp Pulse Resp BP Pulse Ox 97.5 F L 73 20 141/69 97 11/09/17 07:32 11/09/17 07:32 11/09/17 07:32 11/09/17 07:32 11/09/17 09:18 General appearance: Present: no acute distress Results - Labs CBC & Chem 7: 11/04/17 04:29 11/04/17 04:29 Labs: Laboratory Last Values WBC 7.0 K/mm3 (4.5-11.0) 11/04/17 04:29 RBC 3.93 M/mm3 (3.65-5.03) 11/04/17 04:29 Hgb 10.6 gm/dl (11.8-15.2) L 11/04/17 04:29 Hct 33.0 % (35.5-45.6) L 11/04/17 04:29 MCV 84 fl (84-94) 11/04/17 04:29 MCH 27 pg (28-32) L 11/04/17 04:29 MCHC 32 % (32-34) 11/04/17 04:29 RDW 16.4 % (13.2-15.2) H 11/04/17 04:29 Plt Count 193 K/mm3 (140-440) 11/04/17 04:29 Lymph % (Auto) 8.6 % (13.4-35.0) L 11/03/17 05:31 [place] % (Auto) 10.9 % (0.0-7.3) H 11/03/17 05:31 Eos % (Auto) 0.3 % (0.0-4.3) 11/03/17 05:31 Baso % (Auto) 0.1 % (0.0-1.8) 11/03/17 05:31 Lymph # 1.1 K/mm3 (1.2-5.4) L 11/03/17 05:31 [place] # 1.4 K/mm3 (0.0-0.8) H 11/03/17 05:31 Eos # 0.0 K/mm3 (0.0-0.4) 11/03/17 05:31 Baso # 0.0 K/mm3 (0.0-0.1) 11/03/17 05:31 Add Manual Diff Complete 11/04/17 04:29 Total Counted 100 11/04/17 04:29 Seg Neutrophils % Room Clerk 11/04/17 04:29 Seg Neuts % (Manual) 66.0 % (40.0-70.0) 11/04/17 04:29 Band Neutrophils % 22.0 % 11/04/17 04:29 Lymphocytes % (Manual) 7.0 % (13.4-35.0) L 11/04/17 04:29 Reactive Lymphs % (Man) 0 % 11/04/17 04:29 Monocytes % (Manual) 5.0 % (0.0-7.3) 11/04/17 04:29 Eosinophils % (Manual) 0 % (0.0-4.3) 11/04/17 04:29 Basophils % (Manual) 0 % (0.0-1.8) 11/04/17 04:29 Metamyelocytes % 0 % 11/04/17 04:29 Myelocytes % 0 % 11/04/17 04:29 Promyelocytes % 0 % 11/04/17 04:29 Blast Cells % 0 % 11/04/17 04:29 Nucleated RBC % Not Reportable 11/04/17 04:29 Seg Neutrophils # 10.5 K/mm3 (1.8-7.7) H 11/03/17 05:31 Seg Neutrophils # Man 4.6 K/mm3 (1.8-7.7) 11/04/17 04:29 Band Neutrophils # 1.5 K/mm3 11/04/17 04:29 Lymphocytes # (Manual) 0.5 K/mm3 (1.2-5.4) L 11/04/17 04:29 Abs React Lymphs (Man) 0.0 K/mm3 11/04/17 04:29 Monocytes # (Manual) 0.4 K/mm3 (0.0-0.8) 11/04/17 04:29 Eosinophils # (Manual) 0.0 K/mm3 (0.0-0.4) 11/04/17 04:29 Basophils # (Manual) 0.0 K/mm3 (0.0-0.1) 11/04/17 04:29 Metamyelocytes # 0.0 K/mm3 11/04/17 04:29 Myelocytes # 0.0 K/mm3 11/04/17 04:29 Promyelocytes # 0.0 K/mm3 11/04/17 04:29 Blast Cells # 0.0 K/mm3 11/04/17 04:29 WBC Morphology Not Reportable 11/04/17 04:29 Hypersegmented Neuts Not Reportable 11/04/17 04:29 Hyposegmented Neuts Not Reportable 11/04/17 04:29 Hypogranular Neuts Not Reportable 11/04/17 04:29 Smudge Cells Not Reportable 11/04/17 04:29 Toxic Granulation Not Reportable 11/04/17 04:29 Toxic Vacuolation Not Reportable 11/04/17 04:29 Dohle Bodies Not Reportable 11/04/17 04:29 Pelger-Huet Anomaly Not Reportable 11/04/17 04:29 [place] Rods Not Reportable 11/04/17 04:29 Platelet Estimate Appears normal 11/04/17 04:29 Clumped Platelets Not Reportable 11/04/17 04:29 Plt Clumps, EDTA Not Reportable 11/04/17 04:29 Large Platelets Not Reportable 11/04/17 04:29 Giant Platelets Not Reportable 11/04/17 04:29 Platelet Satelliting Not Reportable 11/04/17 04:29 Plt Morphology Comment Not Reportable 11/04/17 04:29 RBC Morphology Not Reportable 11/04/17 04:29 Dimorphic RBCs Not Reportable 11/04/17 04:29 Polychromasia Not Reportable 11/04/17 04:29 Hypochromasia 1+ 11/04/17 04:29 Poikilocytosis Not Reportable 11/04/17 04:29 Anisocytosis 1+ 11/04/17 04:29 Microcytosis Not Reportable 11/04/17 04:29 Macrocytosis Not Reportable 11/04/17 04:29 Spherocytes Not Reportable 11/04/17 04:29 Pappenheimer Bodies Not Reportable 11/04/17 04:29 Sickle Cells Not Reportable 11/04/17 04:29 Target Cells Not Reportable 11/04/17 04:29 Tear Drop Cells Not Reportable 11/04/17 04:29 Ovalocytes Few 11/04/17 04:29 Helmet Cells Not Reportable 11/04/17 04:29 [place] Bodies Not Reportable 11/04/17 04:29 [place] Rings Not Reportable 11/04/17 04:29 Bronson Cells Not Reportable 11/04/17 04:29 Bite Cells Not Reportable 11/04/17 04:29 Crenated Cell Not Reportable 11/04/17 04:29 Elliptocytes Not Reportable 11/04/17 04:29 Acanthocytes (Spur) Not Reportable 11/04/17 04:29 Rouleaux Not Reportable 11/04/17 04:29 Hemoglobin C Crystals Not Reportable 11/04/17 04:29 Schistocytes Not Reportable 11/04/17 04:29 Malaria parasites Not Reportable 11/04/17 04:29 Danny Bodies Not Reportable 11/04/17 04:29 Hem Pathologist Commnt No 11/04/17 04:29 PT 13.8 Sec. (12.2-14.9) 11/03/17 07:12 INR 1.01 (0.87-1.13) 11/03/17 07:12 POC ABG pH 7.369 (7.35-7.45) 11/04/17 10:25 POC ABG pCO2 53.0 (35-45) H 11/04/17 10:25 POC ABG pO2 67 (80-105) L 11/04/17 10:25 POC ABG HCO3 30.6 11/04/17 10:25 POC ABG Total CO2 32 11/04/17 10:25 POC ABG O2 Sat 92 11/04/17 10:25 POC ABG Base Excess 5 11/04/17 10:25 VBG pH 7.318 (7.320-7.420) L 11/03/17 07:12 FiO2 40 % 11/04/17 10:25 Sodium 142 mmol/L (137-145) 11/04/17 04:29 Potassium 4.4 mmol/L (3.6-5.0) 11/04/17 04:29 Chloride 103.6 mmol/L (98-107) 11/04/17 04:29 Carbon Dioxide 27 mmol/L (22-30) 11/04/17 04:29 Anion Gap 16 mmol/L 11/04/17 04:29 BUN 21 mg/dL (9-20) H 11/04/17 04:29 Creatinine 0.5 mg/dL (0.8-1.5) L 11/04/17 04:29 Estimated GFR > 60 ml/min 11/04/17 04:29 BUN/Creatinine Ratio 42 % 11/04/17 04:29 Glucose 141 mg/dL (75-100) H 11/04/17 04:29 Lactic Acid 0.90 mmol/L (0.7-2.0) 11/03/17 09:30 Calcium 8.3 mg/dL (8.4-10.2) L 11/04/17 04:29 Total Bilirubin 0.30 mg/dL (0.1-1.2) 11/03/17 07:12 AST 17 units/L (5-40) 11/03/17 07:12 ALT 12 units/L (7-56) 11/03/17 07:12 Alkaline Phosphatase 97 units/L (35-129) 11/03/17 07:12 Troponin T 0.015 ng/mL (0.00-0.029) 11/03/17 05:31 Total Protein 7.1 g/dL (6.3-8.2) 11/03/17 07:12 Albumin 3.6 g/dL (3.9-5) L 11/03/17 07:12 Albumin/Globulin Ratio 1.0 % 11/03/17 07:12 Urine Color Yellow (Yellow) 11/03/17 Unknown Urine Turbidity Clear (Clear) 11/03/17 Unknown Urine pH 5.0 (5.0-7.0) 11/03/17 Unknown Ur Specific [place]ax 1.018 (1.003-1.030) 11/03/17 Unknown Urine Protein <15 mg/dl mg/dL (Negative) 11/03/17 Unknown Urine Glucose (UA) Neg mg/dL (Negative) 11/03/17 Unknown Urine Ketones Tr mg/dL (Negative) 11/03/17 Unknown Urine Blood Neg (Negative) 11/03/17 Unknown Urine Nitrite Neg (Negative) 11/03/17 Unknown Urine Bilirubin Neg (Negative) 11/03/17 Unknown Urine Urobilinogen < 2.0 mg/dL (<2.0) 11/03/17 Unknown Ur Leukocyte Esterase Neg (Negative) 11/03/17 Unknown Urine WBC (Auto) 1.0 /HPF (0.0-6.0) 11/03/17 Unknown Urine RBC (Auto) 1.0 /HPF (0.0-6.0) 11/03/17 Unknown U Epithel Cells (Auto) < 1.0 /HPF (0-13.0) 11/03/17 Unknown Hyaline Casts 1 /LPF 11/03/17 Unknown Urine Mucus Few /HPF 11/03/17 Unknown
[2017-11-09] MEDS: NACL 0.9% 1000 ML 1,000 ML IV SCH ×3 (12:06→20:06)
--- NOTE | 2017-11-09 14:07 | Progress Note ---
Assessment and Plan Acute on chronic respiratory failure. s/p intubation, vent support. Controlled COPD exacerbation. Currently, COPD appears to be stable, chest is clear. Good response to ongoing medications Pneumonia, completing antibiotics Advanced emphysema. On chronic oxygen support at home. Bilateral hydrocele, pending surgery CAD.See cards note. Recommendations Proceed to surgery as scheduled. Continue nebulizer therapy with either albuterol or DuoNeb every 4 hours Continue IV steroids if surgery planned Plan continue with Pulmicort/Brovana Subjective Date of service: 11/09/17 Principal diagnosis: acute on chronic respiratory failure; PNA; COPD exacerbation Interval history: No complaints today. Currently pending surgery. No shortness of breath or wheezing reported Objective Vital Signs - 12hr 11/09/17 11/09/17 11/09/17 04:09 07:18 07:19 Temperature 99.5 F Pulse Rate Pulse Rate [ 80 Anterior Bilateral Throughout] Respiratory 18 Rate Respiratory 18 Rate [Anterior Bilateral Throughout] Blood Pressure 138/68 O2 Sat by Pulse 96 Oximetry 11/09/17 11/09/17 11/09/17 07:23 07:32 09:18 Temperature 97.5 F L Pulse Rate 73 Pulse Rate [ 84 Anterior Bilateral Throughout] Respiratory 20 Rate Respiratory 18 Rate [Anterior Bilateral Throughout] Blood Pressure 141/69 O2 Sat by Pulse 93 97 Oximetry 11/09/17 11/09/17 11:00 11:39 Temperature 98.2 F Pulse Rate 71 73 Pulse Rate [ Anterior Bilateral Throughout] Respiratory 20 Rate Respiratory Rate [Anterior Bilateral Throughout] Blood Pressure 142/70 144/71 O2 Sat by Pulse 90 Oximetry Constitutional: no acute distress, alert Eyes: non-icteric Neck: supple, no lymphadenopathy, no JVD Effort: normal Ascultation: Bilateral: clear, diminished breath sounds Percussion: Bilateral: not dull Cardiovascular: regular rate and rhythm Gastrointestinal: normoactive bowel sounds, soft Integumentary: other Extremities: other Neurologic: normal mental status, non-focal exam, pupils equal and round, CN II- XII normal Psychiatric: mood appropriate CBC and BMP: 11/04/17 04:29 11/04/17 04:29 ABG, PT/INR, D-dimer: ABG POC ABG pH 7.369 (7.35-7.45) 11/04/17 10:25 POC ABG pCO2 53.0 (35-45) H 11/04/17 10:25 POC ABG pO2 67 (80-105) L 11/04/17 10:25 POC ABG HCO3 30.6 11/04/17 10:25 POC ABG Total CO2 32 11/04/17 10:25 POC ABG O2 Sat 92 11/04/17 10:25 PT/INR, D-dimer PT 13.8 Sec. (12.2-14.9) 11/03/17 07:12 INR 1.01 (0.87-1.13) 11/03/17 07:12 Abnormal lab findings: Abnormal Labs 11/03/17 11/03/17 11/03/17 05:31 05:31 06:10 WBC 13.1 H Hgb Hct MCH 27 L MCHC 31 L RDW 16.8 H Lymph % (Auto) 8.6 L [place] % (Auto) 10.9 H Lymph # 1.1 L [place] # 1.4 H Seg Neutrophils % 80.1 H Lymphocytes % (Manual) Seg Neutrophils # 10.5 H Lymphocytes # (Manual) POC ABG pH 7.191 L POC ABG pCO2 84.1 H POC ABG pO2 VBG pH Potassium 5.1 H BUN 23 H Creatinine 0.6 L Glucose 126 H Calcium Albumin 11/03/17 11/03/17 11/03/17 07:12 07:12 07:34 WBC Hgb Hct MCH MCHC RDW Lymph % (Auto) [place] % (Auto) Lymph # [place] # Seg Neutrophils % Lymphocytes % (Manual) Seg Neutrophils # Lymphocytes # (Manual) POC ABG pH 7.294 L POC ABG pCO2 65.0 H POC ABG pO2 67 L VBG pH 7.318 L Potassium BUN 23 H Creatinine 0.6 L Glucose 129 H Calcium Albumin 3.6 L 11/03/17 11/04/17 11/04/17 11:50 04:29 04:29 WBC Hgb 10.6 L Hct 33.0 L MCH 27 L MCHC RDW 16.4 H Lymph % (Auto) [place] % (Auto) Lymph # [place] # Seg Neutrophils % Lymphocytes % (Manual) 7.0 L Seg Neutrophils # Lymphocytes # (Manual) 0.5 L POC ABG pH 7.344 L POC ABG pCO2 53.7 H POC ABG pO2 VBG pH Potassium BUN 21 H Creatinine 0.5 L Glucose 141 H Calcium 8.3 L Albumin 11/04/17 11/04/17 06:07 10:25 WBC Hgb Hct MCH MCHC RDW Lymph % (Auto) [place] % (Auto) Lymph # [place] # Seg Neutrophils % Lymphocytes % (Manual) Seg Neutrophils # Lymphocytes # (Manual) POC ABG pH POC ABG pCO2 54.0 H 53.0 H POC ABG pO2 67 L VBG pH Potassium BUN Creatinine Glucose Calcium Albumin
[2017-11-09] MEDS ORDERED: VERSED IV SCH (14:10)
[2017-11-09] MEDS ORDERED: XYLOCAINE MPF 2% ONE (14:42)
[2017-11-09] MEDS ORDERED: DIPRIVAN 10 MG/ML IV ONE ×2 (14:55→15:38)
[2017-11-09] MEDS ORDERED: SUBLIMAZE ONE (14:55)
[2017-11-09] MEDS ORDERED: ZOFRAN ONE (14:56)
[2017-11-09] MEDS ORDERED: DILAUDID ONE ×2 (15:39→16:27)
--- NOTE | 2017-11-09 16:15 | Post Operative Note ---
Date of procedure: 11/09/17 Pre-op diagnosis: bilat hydroceles Post-op diagnosis: same Procedure: bilat hydrocelectomy & scrotaplasty Anesthesia: VARUNA Surgeon: LUZ NUNES Estimated blood loss: minimal Pathology: list (hydrocele sac, skin) Specimen disposition: to lab Condition: stable Disposition: PACU ([facility] with 7 days abx of choice)
[2017-11-09] MEDS ORDERED: NACL 0.9% IR ONE (16:19)
[2017-11-09] MEDS: DILAUDID IV PRN ×2 (16:42→16:52)
--- NOTE | 2017-11-09 18:02 | Operative Report ---
PREOPERATIVE DIAGNOSIS: Bilateral hydroceles. POSTOPERATIVE DIAGNOSIS: Bilateral hydroceles, redundant scrotal skin. PROCEDURES: Bilateral hydrocelectomy, scrotoplasty, Nunda drain placement. SURGEON: Ramsey Stone MD ANESTHESIA: General. ESTIMATED BLOOD LOSS: Minimal. FLUIDS: Crystalloid. COMPLICATIONS: No complications. INDICATIONS: This 77-year-old gentleman with a long history of COPD, was seen in the office several months ago for scrotal pain. Exam was consistent with fluid filled masses. Ultrasound confirmed large hydroceles, approximately softball size. The patient needed medical clearance prior to surgical intervention. I presented in the Emergency Room recently in respiratory distress, was intubated. The patient recovered quickly, was subsequently be transferred to the medical floor. He continued to have scrotal discomfort. Urology consultation was obtained. Discussed options. He was cleared from a cardiology and Pulmonary standpoint, and we proceed and we agreed to proceed with surgical intervention. DESCRIPTION OF PROCEDURE: The patient was taken to the operative suite, placed in a supine position. After adequate general anesthesia, his scrotum was prepped and draped in a sterile fashion. Due to the large size of the scrotum, markings were taken to remove some of this redundant scrotal skin. A wedge-shaped excision of scrotal skin was obtained and sent for routine pathologic evaluation. At that point, the right-sided hydrocele was identified and opened. Serosanguineous fluid was drained. Hydrocele sac was removed and sent for routine pathologic evaluation. A whipstitch using 2-0 chromic in a running fashion around the remnant tunica vaginalis. Similar procedure was performed on the left. Adequate hemostasis achieved. A [place] drain was brought out through a separate stab incision on the right side. The skin was then realigned and closed with a 3-0 chromic in interrupted fashion. The septum was incorporated into the incision. The patient tolerated the procedure well. Mesh pants was placed. He was extubated and taken to recovery room. JOB# [id number] [facility]
[2017-11-09] MEDS: FLOMAX PO SCH (23:01)
[2017-11-10] MEDS: MORPHINE IV PRN ×3 (00:41→23:59)
[2017-11-10] MEDS: DOLOPHINE PO SCH ×4 (00:52→23:46)
[2017-11-10] MEDS: DUONEB *Not for PRN Use IH SCH ×4 (03:00→21:19)
[2017-11-10] MEDS: NACL 0.45% 1000 ML 1,000 ML IV SCH ×2 (04:46→16:06)
[2017-11-10] MEDS: NEURONTIN PO SCH ×3 (06:08→23:48)
[2017-11-10] MEDS: PULMICORT IH SCH ×2 (07:38→21:19)
[2017-11-10] MEDS: BROVANA NEBU IH SCH ×2 (07:38→21:19)
--- NOTE | 2017-11-10 10:43 | Progress Note ---
Assessment and Plan Assessment and plan: Patient is a 74-year-old man from [facility] with history of hypertension OA, COPD, chronic pain syndrome and hypertension presented to ED via EMS for evaluation of respiratory distress/ams. Acute on chronic respiratory failure with hypoxia Intubated upon admission 11/03 and extubated next day Aggressive Nebulizers/Inhalers ABG when necessary Managed By Pulmonary Supportive care Sepsis due to Pneumonia Blood and urine culture collected prior to antibiotic Follow blood cultures Initiated empiric IV Levaquin Supportive care Suspected aspiration Pneumonia Urine culture collected Initiated empiric empiric IV Levaquin Acute COPD exacerbation Continue on Duoneb every 6 hours IV steroid Solumedrol Initiated empiric IV Levaquin Oxygen as necessary Acute metabolic encephalopathy, poa treat the copd Hypertensive urgency Hold home antihypertensive medications for now IV hydralazin for SBP>160 Closely monitor blood pressure Malnutrition Nutrition consult DVT prophylaxis Heparin extubated, probable downgraded from icu if ok with Internvist Scrotal edema with pain get u/s consulted Urology, pt known to Dr. Stone 11/06/17: consulted Cardiology for pre-op evaluation for scrotal surgery, d/w Dr. Stone issue with placement, consult case management 11/07/17: d/w Pulmonology, Dr. Sharma yesterday, regarding pre-op pulm eval. ECHO reviewed 11/08/17: per Pulmonology, Dr. Manzano: "Acute on chronic respiratory failure. Status post COPD exacerbation with intubation/mechanical ventilation support episode Pneumonia, completing antibiotics Advanced emphysema. On chronic oxygen support at home. Bilateral hydrocele, pending surgery Recommendations Pending echo review evaluation report Continue nebulizer therapy with either albuterol or DuoNeb every 4 hours IV steroids Plan continue with Pulmicort/Brovan, as recommended by Dr. Sharma. I was also asked by [facility], to provide a pulmonary opinion regarding his risk for surgery. If the patient continues to improve, he become probably move forward with surgery for his hydrocele. He is at least a moderate to elevated pulmonary risk for surgery, must be on the look out and preparations done for postoperative respiratory failure exacerbation. This including need for reintubation and mechanical ventilation support. I discussed this risk with the patient and family at the bedside in detail. They both understand that the patient is in pain and he wants some correction of his problem." per Cardiology, Dr. Sosa: "Echo reviewed - EF 45-50%, mild LVH, RA mildly dilated, mild TR, mild pulm HTN, RVSP 46mmHg. Pt is currently at moderate cardiovascular risk for bilateral hydrocelectomy. There are no immediate cardiac contraindications to proceeding with procedure at this time. The patient has been seen in conjunction with Dr. Sosa who agrees with the assessment and plan of care." I notified, Urologist, Dr. Stone that pre-op had been done. Disposition is a problem, patient has exhausted his short-term rehabilitation days at [facility], case management is seeking long -term nursing care if approved by his insurance. It appears patient is homeless. 11/09/17: Going for bilateral hydrocelectomy today 11/10/17: per Urology, Dr. Stone: "Date of procedure: 11/09/17 Pre-op diagnosis: bilat hydroceles Post-op diagnosis: same Procedure: bilat hydrocelectomy & scrotaplasty Anesthesia: GETA Surgeon: LUZ STONE Estimated blood loss: minimal Pathology: list (hydrocele sac, skin) Specimen disposition: to lab Condition: stable Disposition: PACU ([facility] with 7 days abx of choice)" History Interval history: Patient was seen and examined. Follow-up on current diagnosis. Overnight uneventful. No new compliants, still with cough but sob is much better. Imaging, nursing note, chart, labs and old chart reviewed. Discussed with patient. Hospitalist Physical - Physical exam Narrative exam: GEN: Chronic debilitating appearing NAD, a/o x 3 HEENT: NCAT, EOMI, PERRL, OP Clear NECK: supple, no adenopathy, no thyromegaly, no JVD CVS/HEART: RRR, NORMAL S1S2, NO JVD, pulses present bilaterally CHEST/LUNGS: Symmetrical chest expansion, diminished air entry bilaterally but improved GI/Abdomen: soft, NTND, good bowel sounds, no guarding or rebound /Bladder: no suprapubic tenderness, no CVA or paraspinal tenderness, scrotal drain and suture in place EXT/Skin: no c/c/e, no obvious rash MSK: FROM x 4 Neuro: CN 2-12 grossly intact, no new focal deficits Psych: calm - Constitutional Vitals: Temp Pulse Resp BP Pulse Ox 98.6 F 72 18 140/74 96 12/14/17 07:34 11/10/17 07:45 11/10/17 07:45 11/10/17 07:34 11/10/17 07:39 General appearance: Present: no acute distress Results - Labs CBC & Chem 7: 11/04/17 04:29 11/04/17 04:29 Labs: Laboratory Last Values WBC 7.0 K/mm3 (4.5-11.0) 11/04/17 04:29 RBC 3.93 M/mm3 (3.65-5.03) 11/04/17 04:29 Hgb 10.6 gm/dl (11.8-15.2) L 11/04/17 04:29 Hct 33.0 % (35.5-45.6) L 11/04/17 04:29 MCV 84 fl (84-94) 11/04/17 04:29 MCH 27 pg (28-32) L 11/04/17 04:29 MCHC 32 % (32-34) 11/04/17 04:29 RDW 16.4 % (13.2-15.2) H 11/04/17 04:29 Plt Count 193 K/mm3 (140-440) 11/04/17 04:29 Lymph % (Auto) 8.6 % (13.4-35.0) L 11/03/17 05:31 [place] % (Auto) 10.9 % (0.0-7.3) H 11/03/17 05:31 Eos % (Auto) 0.3 % (0.0-4.3) 11/03/17 05:31 Baso % (Auto) 0.1 % (0.0-1.8) 11/03/17 05:31 Lymph # 1.1 K/mm3 (1.2-5.4) L 11/03/17 05:31 [place] # 1.4 K/mm3 (0.0-0.8) H 11/03/17 05:31 Eos # 0.0 K/mm3 (0.0-0.4) 11/03/17 05:31 Baso # 0.0 K/mm3 (0.0-0.1) 11/03/17 05:31 Add Manual Diff Complete 11/04/17 04:29 Total Counted 100 11/04/17 04:29 Seg Neutrophils % Asset Coordinator 11/04/17 04:29 Seg Neuts % (Manual) 66.0 % (40.0-70.0) 11/04/17 04:29 Band Neutrophils % 22.0 % 11/04/17 04:29 Lymphocytes % (Manual) 7.0 % (13.4-35.0) L 11/04/17 04:29 Reactive Lymphs % (Man) 0 % 11/04/17 04:29 Monocytes % (Manual) 5.0 % (0.0-7.3) 11/04/17 04:29 Eosinophils % (Manual) 0 % (0.0-4.3) 11/04/17 04:29 Basophils % (Manual) 0 % (0.0-1.8) 11/04/17 04:29 Metamyelocytes % 0 % 11/04/17 04:29 Myelocytes % 0 % 11/04/17 04:29 Promyelocytes % 0 % 11/04/17 04:29 Blast Cells % 0 % 11/04/17 04:29 Nucleated RBC % Not Reportable 11/04/17 04:29 Seg Neutrophils # 10.5 K/mm3 (1.8-7.7) H 11/03/17 05:31 Seg Neutrophils # Man 4.6 K/mm3 (1.8-7.7) 11/04/17 04:29 Band Neutrophils # 1.5 K/mm3 11/04/17 04:29 Lymphocytes # (Manual) 0.5 K/mm3 (1.2-5.4) L 11/04/17 04:29 Abs React Lymphs (Man) 0.0 K/mm3 11/04/17 04:29 Monocytes # (Manual) 0.4 K/mm3 (0.0-0.8) 11/04/17 04:29 Eosinophils # (Manual) 0.0 K/mm3 (0.0-0.4) 11/04/17 04:29 Basophils # (Manual) 0.0 K/mm3 (0.0-0.1) 11/04/17 04:29 Metamyelocytes # 0.0 K/mm3 11/04/17 04:29 Myelocytes # 0.0 K/mm3 11/04/17 04:29 Promyelocytes # 0.0 K/mm3 11/04/17 04:29 Blast Cells # 0.0 K/mm3 11/04/17 04:29 WBC Morphology Not Reportable 11/04/17 04:29 Hypersegmented Neuts Not Reportable 11/04/17 04:29 Hyposegmented Neuts Not Reportable 11/04/17 04:29 Hypogranular Neuts Not Reportable 11/04/17 04:29 Smudge Cells Not Reportable 11/04/17 04:29 Toxic Granulation Not Reportable 11/04/17 04:29 Toxic Vacuolation Not Reportable 11/04/17 04:29 Dohle Bodies Not Reportable 11/04/17 04:29 Pelger-Huet Anomaly Not Reportable 11/04/17 04:29 [place] Rods Not Reportable 11/04/17 04:29 Platelet Estimate Appears normal 11/04/17 04:29 Clumped Platelets Not Reportable 11/04/17 04:29 Plt Clumps, EDTA Not Reportable 11/04/17 04:29 Large Platelets Not Reportable 11/04/17 04:29 Giant Platelets Not Reportable 11/04/17 04:29 Platelet Satelliting Not Reportable 11/04/17 04:29 Plt Morphology Comment Not Reportable 11/04/17 04:29 RBC Morphology Not Reportable 11/04/17 04:29 Dimorphic RBCs Not Reportable 11/04/17 04:29 Polychromasia Not Reportable 11/04/17 04:29 Hypochromasia 1+ 11/04/17 04:29 Poikilocytosis Not Reportable 11/04/17 04:29 Anisocytosis 1+ 11/04/17 04:29 Microcytosis Not Reportable 11/04/17 04:29 Macrocytosis Not Reportable 11/04/17 04:29 Spherocytes Not Reportable 11/04/17 04:29 Pappenheimer Bodies Not Reportable 11/04/17 04:29 Sickle Cells Not Reportable 11/04/17 04:29 Target Cells Not Reportable 11/04/17 04:29 Tear Drop Cells Not Reportable 11/04/17 04:29 Ovalocytes Few 11/04/17 04:29 Helmet Cells Not Reportable 11/04/17 04:29 [place]-Marcus Bodies Not Reportable 11/04/17 04:29 [place] Rings Not Reportable 11/04/17 04:29 [place] Cells Not Reportable 11/04/17 04:29 Bite Cells Not Reportable 11/04/17 04:29 Crenated Cell Not Reportable 11/04/17 04:29 Elliptocytes Not Reportable 11/04/17 04:29 Acanthocytes (Spur) Not Reportable 11/04/17 04:29 Rouleaux Not Reportable 11/04/17 04:29 Hemoglobin C Crystals Not Reportable 11/04/17 04:29 Schistocytes Not Reportable 11/04/17 04:29 Malaria parasites Not Reportable 11/04/17 04:29 Danny Bodies Not Reportable 11/04/17 04:29 Hem Pathologist Commnt No 11/04/17 04:29 PT 13.8 Sec. (12.2-14.9) 11/03/17 07:12 INR 1.01 (0.87-1.13) 11/03/17 07:12 POC ABG pH 7.369 (7.35-7.45) 11/04/17 10:25 POC ABG pCO2 53.0 (35-45) H 11/04/17 10:25 POC ABG pO2 67 (80-105) L 11/04/17 10:25 POC ABG HCO3 30.6 11/04/17 10:25 POC ABG Total CO2 32 11/04/17 10:25 POC ABG O2 Sat 92 11/04/17 10:25 POC ABG Base Excess 5 11/04/17 10:25 VBG pH 7.318 (7.320-7.420) L 11/03/17 07:12 FiO2 40 % 11/04/17 10:25 Sodium 142 mmol/L (137-145) 11/04/17 04:29 Potassium 4.4 mmol/L (3.6-5.0) 11/04/17 04:29 Chloride 103.6 mmol/L (98-107) 11/04/17 04:29 Carbon Dioxide 27 mmol/L (22-30) 11/04/17 04:29 Anion Gap 16 mmol/L 11/04/17 04:29 BUN 21 mg/dL (9-20) H 11/04/17 04:29 Creatinine 0.5 mg/dL (0.8-1.5) L 11/04/17 04:29 Estimated GFR > 60 ml/min 11/04/17 04:29 BUN/Creatinine Ratio 42 % 11/04/17 04:29 Glucose 141 mg/dL (75-100) H 11/04/17 04:29 Lactic Acid 0.90 mmol/L (0.7-2.0) 11/03/17 09:30 Calcium 8.3 mg/dL (8.4-10.2) L 11/04/17 04:29 Total Bilirubin 0.30 mg/dL (0.1-1.2) 11/03/17 07:12 AST 17 units/L (5-40) 11/03/17 07:12 ALT 12 units/L (7-56) 11/03/17 07:12 Alkaline Phosphatase 97 units/L (35-129) 11/03/17 07:12 Troponin T 0.015 ng/mL (0.00-0.029) 11/03/17 05:31 Total Protein 7.1 g/dL (6.3-8.2) 11/03/17 07:12 Albumin 3.6 g/dL (3.9-5) L 11/03/17 07:12 Albumin/Globulin Ratio 1.0 % 11/03/17 07:12 Urine Color Yellow (Yellow) 11/03/17 Unknown Urine Turbidity Clear (Clear) 11/03/17 Unknown Urine pH 5.0 (5.0-7.0) 11/03/17 Unknown Ur Specific [place] 1.018 (1.003-1.030) 11/03/17 Unknown Urine Protein <15 mg/dl mg/dL (Negative) 11/03/17 Unknown Urine Glucose (UA) Neg mg/dL (Negative) 11/03/17 Unknown Urine Ketones Tr mg/dL (Negative) 11/03/17 Unknown Urine Blood Neg (Negative) 11/03/17 Unknown Urine Nitrite Neg (Negative) 11/03/17 Unknown Urine Bilirubin Neg (Negative) 11/03/17 Unknown Urine Urobilinogen < 2.0 mg/dL (<2.0) 11/03/17 Unknown Ur Leukocyte Esterase Neg (Negative) 11/03/17 Unknown Urine WBC (Auto) 1.0 /HPF (0.0-6.0) 11/03/17 Unknown Urine RBC (Auto) 1.0 /HPF (0.0-6.0) 11/03/17 Unknown U Epithel Cells (Auto) < 1.0 /HPF (0-13.0) 11/03/17 Unknown Hyaline Casts 1 /LPF 11/03/17 Unknown Urine Mucus Few /HPF 11/03/17 Unknown
--- NOTE | 2017-11-10 10:55 | Discharge Summary ---
Providers - Providers Date of Admission: 11/03/17 09:10 Attending physician: CLIVE AGUAYO 11/03/17 06:33 Consult to Physician [CONS] Stat Consulting Provider: CELESTE SHARMA Reason For Exam: resp railure Place consult to:: CC DESIGN ENGINEERING MANAGER Notified:: Y Was contact made?: Yes If yes, spoke with:: DR SHARMA Time called:: 07:25 11/03/17 12:10 Consult to Dietitian/Nutrition [CONS] Routine Physician Instructions: Reason For Exam: Reason for Consult: Malnutrition 11/05/17 03:44 Speech Therapy Evaluation and Treat [CONS] Routine Reason For Exam: check for aspiration 11/05/17 11:55 Consult to Physician [CONS] Routine Consulting Provider: LUZ STONE Reason For Exam: Swollen and painful testicles, pt known to you Place consult to:: DR. STONE Notified:: YES Was contact made?: Yes 11/06/17 09:35 Consult to Physician [CONS] Routine Consulting Provider: JOHNNY COHEN Reason For Exam: pre-op evaluation for scrotal surgery per Urology Place consult to:: answering service Notified:: yes Phone number called:: [phone] If yes, spoke with:: alea Time called:: 10:10 Comment:: jovani 11/07/17 15:05 Speech Therapy Evaluation and Treat [CONS] Urgent Reason For Exam: re-evaluate 11/08/17 11:24 Physical Therapy Evaluation and Treat [CONS] Routine Comment: Reason For Exam: Debility 11/08/17 11:25 Occupational Therapy Evaluate and Treat [CONS] Routine Comment: Reason For Exam: Debility Primary care physician: WORM RAISER Hospitalization Condition: Stable Hospital course: Patient is a 74-year-old man from [facility] and rehab (short term stay) with history of hypertension OA, COPD, chronic pain syndrome and hypertension who presented to ED via EMS for evaluation of respiratory distress/ ams. Acute on chronic respiratory failure with hypoxia Intubated upon admission 11/03 and extubated next day Aggressive Nebulizers/Inhalers ABG when necessary Managed By Pulmonary Supportive care Sepsis due to Pneumonia Blood and urine culture collected prior to antibiotic Follow blood cultures Initiated empiric IV Levaquin Supportive care Suspected aspiration Pneumonia Urine culture collected Initiated empiric empiric IV Levaquin Acute COPD exacerbation Continue on Duoneb every 6 hours IV steroid Solumedrol Initiated empiric IV Levaquin Oxygen as necessary Acute metabolic encephalopathy, poa treat the copd Hypertensive urgency Hold home antihypertensive medications for now IV hydralazin for SBP>160 Closely monitor blood pressure Malnutrition Nutrition consult DVT prophylaxis Heparin extubated, probable downgraded from icu if ok with Internvist Scrotal edema with pain get u/s consulted Urology, pt known to Dr. Stone 11/06/17: consulted Cardiology for pre-op evaluation for scrotal surgery, d/w Dr. Stone issue with placement, consult case management 11/07/17: d/w Pulmonology, Dr. Sharma yesterday, regarding pre-op pulm eval. ECHO reviewed 11/08/17: per Pulmonology, Dr. Manzano: "Acute on chronic respiratory failure. Status post COPD exacerbation with intubation/mechanical ventilation support episode Pneumonia, completing antibiotics Advanced emphysema. On chronic oxygen support at home. Bilateral hydrocele, pending surgery Recommendations Pending echo review evaluation report Continue nebulizer therapy with either albuterol or DuoNeb every 4 hours IV steroids Plan continue with Pulmicort/Brovan, as recommended by Dr. Sharma. I was also asked by [facility], to provide a pulmonary opinion regarding his risk for surgery. If the patient continues to improve, he become probably move forward with surgery for his hydrocele. He is at least a moderate to elevated pulmonary risk for surgery, must be on the look out and preparations done for postoperative respiratory failure exacerbation. This including need for reintubation and mechanical ventilation support. I discussed this risk with the patient and family at the bedside in detail. They both understand that the patient is in pain and he wants some correction of his problem." per Cardiology, Dr. Sosa: "Echo reviewed - EF 45-50%, mild LVH, RA mildly dilated, mild TR, mild pulm HTN, RVSP 46mmHg. Pt is currently at moderate cardiovascular risk for bilateral hydrocelectomy. There are no immediate cardiac contraindications to proceeding with procedure at this time. The patient has been seen in conjunction with Dr. Sosa who agrees with the assessment and plan of care." I notified, Urologist, Dr. Stone that pre-op had been done. Disposition is a problem, patient has exhausted his short-term rehabilitation days at [facility], case management is seeking long -term nursing care if approved by his insurance. It appears patient is homeless. 11/09/17: Going for bilateral hydrocelectomy today 11/10/17: per Urology, Dr. Stone: "Date of procedure: 11/09/17 Pre-op diagnosis: bilat hydroceles Post-op diagnosis: same Procedure: bilat hydrocelectomy & scrotaplasty Anesthesia: GETA Surgeon: LUZ STONE Estimated blood loss: minimal Pathology: list (hydrocele sac, skin) Specimen disposition: to lab Condition: stable Disposition: PACU ([facility] with 7 days abx of choice)" d/c to SNF once placement is found Disposition: DC/[place]-03 SNF W [facility] Time spent for discharge: 36 minutes Core Measure Documentation - Palliative Care Palliative Care/ Comfort Measures: Not Applicable - Core Measures Any of the following diagnoses?: none - VTE Discharge Requirements Deep Vein Thrombosis/Pulmonary Embolism Present on Admission: No Has pt received <5 days of overlap therapy or INR<2.0: No Anticoagulant overlap therapy prescribed at discharge: No Contraindication No Overlap Therapy order at DC: Not Indicated Exam - Physical Exam Narrative exam: GEN: Chronic debilitating appearing NAD, a/o x 3 HEENT: NCAT, EOMI, PERRL, OP Clear NECK: supple, no adenopathy, no thyromegaly, no JVD CVS/HEART: RRR, NORMAL S1S2, NO JVD, pulses present bilaterally CHEST/LUNGS: Symmetrical chest expansion, diminished air entry bilaterally but improved GI/Abdomen: soft, NTND, good bowel sounds, no guarding or rebound /Bladder: no suprapubic tenderness, no CVA or paraspinal tenderness, scrotal drain and suture in place EXT/Skin: no c/c/e, no obvious rash MSK: FROM x 4 Neuro: CN 2-12 grossly intact, no new focal deficits Psych: calm - Constitutional Vitals: Temp Pulse Resp BP Pulse Ox 98.6 F 72 18 140/74 96 11/10/17 07:34 11/10/17 07:45 11/10/17 07:45 11/10/17 07:34 11/10/17 07:39 Plan Diet: low salt Wound: per your surgeon's advice Special Instructions: record daily BP diary Additional Instructions: I will not be giving you Methdone. You can call your prior doctors: Dr. Jeremy Berrios or Dr. Baylee Ocampo or Dr. Yen Grey. You should be under ONLY one doctor supervising Methodone usage: You can call guest experience specialist. Francisco Mcclain MD. [address], [address], [place] [address]. [phone] Follow up with: RENALDO ZAMBRANO MD [Primary Care Provider] - 3-5 Days LUZ STONE MD [Staff Physician] - 7 Days CELESTE SHARMA MD [Staff Physician] - 14 Days Prescriptions: Atorvastatin Calcium [Lipitor] 10 mg PO DAILY #30 tablet methylPREDNISolone [Medrol Dose Tom] 1 dose PO DAILY #1 pack oxyCODONE /ACETAMINOPHEN [Percocet 5/325] 1 tab PO Q4HR PRN #30 tab PRN Reason: Pain , Severe (7-10)
[2017-11-10] MEDS: ZESTRIL PO SCH ×2 (11:12→23:48)
[2017-11-10] MEDS: NORVASC PO SCH (11:14)
[2017-11-10] MEDS: DELTASONE PO SCH (11:14)
[2017-11-10] MEDS: LOPRESSOR PO SCH ×2 (11:14→23:46)
[2017-11-10] MEDS: LASIX PO SCH (11:14)
[2017-11-10] MEDS: LOVENOX SUB-Q SCH (11:15)
--- NOTE | 2017-11-10 12:45 | Progress Note ---
Assessment and Plan Acute on chronic respiratory failure. s/p intubation, vent support. Controlled COPD exacerbation. Currently, COPD appears to be stable, chest is clear. Good response to ongoing medications Pneumonia, completing antibiotics Advanced emphysema. On chronic oxygen support at home. Bilateral hydrocele, pending surgery CAD.See cards note. Recommendations Continue nebulizer therapy with either albuterol or DuoNeb every 4 hours Continue IV steroids if surgery planned Plan continue with Pulmicort/Brovana x now.can switch to Anoro inhaler at D/H Follows with [facility] (pt thinks?). Can be seen at our office if needed also Check oximetry prior to D/H Flu/pneumonia vaccination update if needed Will sign off Subjective Date of service: 11/10/17 Principal diagnosis: acute on chronic respiratory failure; PNA; COPD exacerbation Interval history: Had surgery as scheduled. No events overnight.No SOB or wheezing Objective Vital Signs - 12hr 11/10/17 11/10/17 11/10/17 00:52 01:11 01:52 Temperature Pulse Rate Pulse Rate [ Anterior Bilateral Throughout] Respiratory 20 20 20 Rate Respiratory Rate [Anterior Bilateral Throughout] Blood Pressure O2 Sat by Pulse Oximetry 11/10/17 11/10/17 11/10/17 04:58 07:34 07:39 Temperature 97.8 F 98.6 F Pulse Rate 75 75 Pulse Rate [ 70 Anterior Bilateral Throughout] Respiratory 18 20 Rate Respiratory 18 Rate [Anterior Bilateral Throughout] Blood Pressure 140/65 140/74 O2 Sat by Pulse 88 90 96 Oximetry 11/10/17 11/10/17 11/10/17 07:45 11:12 11:14 Temperature Pulse Rate 75 75 Pulse Rate [ 72 Anterior Bilateral Throughout] Respiratory Rate Respiratory 18 Rate [Anterior Bilateral Throughout] Blood Pressure 140/74 140/74 O2 Sat by Pulse Oximetry Constitutional: no acute distress, alert Eyes: non-icteric ENT: other (orally intubated, not sedated) Neck: supple, no lymphadenopathy, no JVD Effort: normal Ascultation: Bilateral: clear, diminished breath sounds Percussion: Bilateral: not dull Cardiovascular: regular rate and rhythm Gastrointestinal: normoactive bowel sounds, soft Integumentary: other Extremities: other Neurologic: normal mental status, non-focal exam, pupils equal and round, CN II- XII normal Psychiatric: mood appropriate CBC and BMP: 11/04/17 04:29 11/04/17 04:29 ABG, PT/INR, D-dimer: ABG POC ABG pH 7.369 (7.35-7.45) 11/04/17 10:25 POC ABG pCO2 53.0 (35-45) H 11/04/17 10:25 POC ABG pO2 67 (80-105) L 11/04/17 10:25 POC ABG HCO3 30.6 11/04/17 10:25 POC ABG Total CO2 32 11/04/17 10:25 POC ABG O2 Sat 92 11/04/17 10:25 PT/INR, D-dimer PT 13.8 Sec. (12.2-14.9) 11/03/17 07:12 INR 1.01 (0.87-1.13) 11/03/17 07:12 Abnormal lab findings: Abnormal Labs 11/03/17 11/03/17 11/03/17 05:31 05:31 06:10 WBC 13.1 H Hgb Hct MCH 27 L MCHC 31 L RDW 16.8 H Lymph % (Auto) 8.6 L [place] % (Auto) 10.9 H Lymph # 1.1 L [place] # 1.4 H Seg Neutrophils % 80.1 H Lymphocytes % (Manual) Seg Neutrophils # 10.5 H Lymphocytes # (Manual) POC ABG pH 7.191 L POC ABG pCO2 84.1 H POC ABG pO2 VBG pH Potassium 5.1 H BUN 23 H Creatinine 0.6 L Glucose 126 H Calcium Albumin 11/03/17 11/03/17 11/03/17 07:12 07:12 07:34 WBC Hgb Hct MCH MCHC RDW Lymph % (Auto) [place] % (Auto) Lymph # [place] # Seg Neutrophils % Lymphocytes % (Manual) Seg Neutrophils # Lymphocytes # (Manual) POC ABG pH 7.294 L POC ABG pCO2 65.0 H POC ABG pO2 67 L VBG pH 7.318 L Potassium BUN 23 H Creatinine 0.6 L Glucose 129 H Calcium Albumin 3.6 L 11/03/17 11/04/17 11/04/17 11:50 04:29 04:29 WBC Hgb 10.6 L Hct 33.0 L MCH 27 L MCHC RDW 16.4 H Lymph % (Auto) [place] % (Auto) Lymph # [place] # Seg Neutrophils % Lymphocytes % (Manual) 7.0 L Seg Neutrophils # Lymphocytes # (Manual) 0.5 L POC ABG pH 7.344 L POC ABG pCO2 53.7 H POC ABG pO2 VBG pH Potassium BUN 21 H Creatinine 0.5 L Glucose 141 H Calcium 8.3 L Albumin 11/04/17 11/04/17 06:07 10:25 WBC Hgb Hct MCH MCHC RDW Lymph % (Auto) [place] % (Auto) Lymph # [place] # Seg Neutrophils % Lymphocytes % (Manual) Seg Neutrophils # Lymphocytes # (Manual) POC ABG pH POC ABG pCO2 54.0 H 53.0 H POC ABG pO2 67 L VBG pH Potassium BUN Creatinine Glucose Calcium Albumin
--- NOTE | 2017-11-10 13:04 | Progress Note ---
Assessment and Plan Pt s/p bilat hydrocelectomy & scrotaplasty yesterday. Currently stable cardiac status. Nothing further to add from cardiac perspective. Pt may discharge from cardiology standpoint. Recommend follow up in our office with Angelica Burciaga NP, within 1-2 weeks of hospital discharge ([phone]). The patient has been seen in conjunction with Dr. Sosa who agrees with the assessment and plan of care. - Patient Problems (1) Preoperative cardiovascular examination Current Visit: Yes Status: Acute (2) Acute on chronic respiratory failure Current Visit: Yes Status: Acute (3) Pneumonia Current Visit: Yes Status: Acute (4) COPD exacerbation Current Visit: Yes Status: Acute (5) Hydrocele, bilateral Current Visit: Yes Status: Acute (6) Hypertension Current Visit: Yes Status: Chronic Qualifiers: Hypertension type: essential hypertension Qualified Code(s): I10 - Essential (primary) hypertension (7) Pulmonary HTN Current Visit: Yes Status: Chronic Subjective Date of service: 11/10/17 Principal diagnosis: acute on chronic respiratory failure; PNA; COPD exacerbation Interval history: Pt resting comfortably in bed, no current cardiac complaints. VSS. Objective Last Vital Signs Temp 98.6 F 11/10/17 07:34 Pulse 75 11/10/17 11:14 Resp 18 11/10/17 07:45 BP 140/74 11/10/17 11:14 Pulse Ox 96 11/10/17 07:39 - Physical Examination General: No Apparent Distress HEENT: Positive: EOMI, Normocephaly, Mucus Membranes Moist Neck: Positive: neck supple, trachea midline Cardiac: Positive: Reg Rate and Rhythm, irregularly irregular Lungs: Positive: Decreased Breath Sounds Neuro: Positive: Grossly Intact Abdomen: Positive: Soft, Active Bowel Sounds. Negative: Tender Skin: Positive: Clear. Negative: Rash Musculoskeletal: Normal Range of Motion Extremities: Present: normal. Absent: edema - Imaging and Cardiology EKG: image reviewed - EKG Sinus rhythms and dysrhythmias: sinus tachycardia
[2017-11-10] MEDS: LEVAQUIN PO SCH (16:02)
[2017-11-10] MEDS: FLOMAX PO SCH (23:45)
[2017-11-11] MEDS: DUONEB *Not for PRN Use IH SCH ×4 (02:00→20:03)
[2017-11-11] MEDS: NEURONTIN PO SCH ×2 (05:58→18:57)
[2017-11-11] MEDS: MORPHINE IV PRN ×3 (06:18→18:56)
[2017-11-11] MEDS: NACL 0.45% 1000 ML 1,000 ML IV SCH ×2 (06:19→18:56)
[2017-11-11] MEDS: BROVANA NEBU IH SCH (07:43)
[2017-11-11] MEDS: PULMICORT IH SCH ×2 (07:43→20:03)
--- NOTE | 2017-11-11 10:34 | Progress Note ---
Assessment and Plan Assessment and plan: Patient is a 74-year-old man from [facility] with history of hypertension OA, COPD, chronic pain syndrome and hypertension presented to ED via EMS for evaluation of respiratory distress/ams. Acute on chronic respiratory failure with hypoxia Intubated upon admission 11/03 and extubated next day Aggressive Nebulizers/Inhalers ABG when necessary Managed By Pulmonary Supportive care Sepsis due to Pneumonia Blood and urine culture collected prior to antibiotic Follow blood cultures Initiated empiric IV Levaquin Supportive care Suspected aspiration Pneumonia Urine culture collected Initiated empiric empiric IV Levaquin Acute COPD exacerbation Continue on Duoneb every 6 hours IV steroid Solumedrol Initiated empiric IV Levaquin Oxygen as necessary Acute metabolic encephalopathy, poa treat the copd Hypertensive urgency Hold home antihypertensive medications for now IV hydralazin for SBP>160 Closely monitor blood pressure Malnutrition Nutrition consult DVT prophylaxis Heparin extubated, probable downgraded from icu if ok with Internvist Scrotal edema with pain get u/s consulted Urology, pt known to Dr. Stone 11/06/17: consulted Cardiology for pre-op evaluation for scrotal surgery, d/w Dr. Stone issue with placement, consult case management 11/07/17: d/w Pulmonology, Dr. Sharma yesterday, regarding pre-op pulm eval. ECHO reviewed 11/08/17: per Pulmonology, Dr. Manzano: "Acute on chronic respiratory failure. Status post COPD exacerbation with intubation/mechanical ventilation support episode Pneumonia, completing antibiotics Advanced emphysema. On chronic oxygen support at home. Bilateral hydrocele, pending surgery Recommendations Pending echo review evaluation report Continue nebulizer therapy with either albuterol or DuoNeb every 4 hours IV steroids Plan continue with Pulmicort/Brovan, as recommended by Dr. Sharma. I was also asked by [facility], to provide a pulmonary opinion regarding his risk for surgery. If the patient continues to improve, he become probably move forward with surgery for his hydrocele. He is at least a moderate to elevated pulmonary risk for surgery, must be on the look out and preparations done for postoperative respiratory failure exacerbation. This including need for reintubation and mechanical ventilation support. I discussed this risk with the patient and family at the bedside in detail. They both understand that the patient is in pain and he wants some correction of his problem." per Cardiology, Dr. Sosa: "Echo reviewed - EF 45-50%, mild LVH, RA mildly dilated, mild TR, mild pulm HTN, RVSP 46mmHg. Pt is currently at moderate cardiovascular risk for bilateral hydrocelectomy. There are no immediate cardiac contraindications to proceeding with procedure at this time. The patient has been seen in conjunction with Dr. Sosa who agrees with the assessment and plan of care." I notified, Urologist, Dr. Stone that pre-op had been done. Disposition is a problem, patient has exhausted his short-term rehabilitation days at [facility], case management is seeking long -term nursing care if approved by his insurance. It appears patient is homeless. 11/09/17: Going for bilateral hydrocelectomy today 11/10/17: per Urology, Dr. 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 He requesting home xanax refill but he has not needed it since admission. Awaiting placement History Interval history: Patient was seen and examined. Follow-up on current diagnosis. Overnight uneventful. No new compliants, still with cough but sob is much better. Imaging, nursing note, chart, labs and old chart reviewed. Discussed with patient. Hospitalist Physical - Physical exam Narrative exam: GEN: Chronic debilitating appearing NAD, a/o x 3 HEENT: NCAT, EOMI, PERRL, OP Clear NECK: supple, no adenopathy, no thyromegaly, no JVD CVS/HEART: RRR, NORMAL S1S2, NO JVD, pulses present bilaterally CHEST/LUNGS: Symmetrical chest expansion, diminished air entry bilaterally but improved GI/Abdomen: soft, NTND, good bowel sounds, no guarding or rebound /Bladder: no suprapubic tenderness, no CVA or paraspinal tenderness, scrotal drain and suture in place EXT/Skin: no c/c/e, no obvious rash MSK: FROM x 4 Neuro: CN 2-12 grossly intact, no new focal deficits Psych: calm - Constitutional Vitals: Temp Pulse Resp BP Pulse Ox 97.6 F 77 18 120/58 96 11/11/17 08:09 11/11/17 08:10 11/11/17 08:10 11/11/17 08:09 11/11/17 09:45 General appearance: Present: no acute distress Results - Labs CBC & Chem 7: 11/04/17 04:29 11/04/17 04:29 Labs: Laboratory Last Values WBC 7.0 K/mm3 (4.5-11.0) 11/04/17 04:29 RBC 3.93 M/mm3 (3.65-5.03) 11/04/17 04:29 Hgb 10.6 gm/dl (11.8-15.2) L 11/04/17 04:29 Hct 33.0 % (35.5-45.6) L 11/04/17 04:29 MCV 84 fl (84-94) 11/04/17 04:29 MCH 27 pg (28-32) L 11/04/17 04:29 MCHC 32 % (32-34) 11/04/17 04:29 RDW 16.4 % (13.2-15.2) H 11/04/17 04:29 Plt Count 193 K/mm3 (140-440) 11/04/17 04:29 Lymph % (Auto) 8.6 % (13.4-35.0) L 11/03/17 05:31 [place] % (Auto) 10.9 % (0.0-7.3) H 11/03/17 05:31 Eos % (Auto) 0.3 % (0.0-4.3) 11/03/17 05:31 Baso % (Auto) 0.1 % (0.0-1.8) 11/03/17 05:31 Lymph # 1.1 K/mm3 (1.2-5.4) L 11/03/17 05:31 [place] # 1.4 K/mm3 (0.0-0.8) H 11/03/17 05:31 Eos # 0.0 K/mm3 (0.0-0.4) 11/03/17 05:31 Baso # 0.0 K/mm3 (0.0-0.1) 11/03/17 05:31 Add Manual Diff Complete 11/04/17 04:29 Total Counted 100 11/04/17 04:29 Seg Neutrophils % Mixing Machine Tender Cork Rod 11/04/17 04:29 Seg Neuts % (Manual) 66.0 % (40.0-70.0) 11/04/17 04:29 Band Neutrophils % 22.0 % 11/04/17 04:29 Lymphocytes % (Manual) 7.0 % (13.4-35.0) L 11/04/17 04:29 Reactive Lymphs % (Man) 0 % 11/04/17 04:29 Monocytes % (Manual) 5.0 % (0.0-7.3) 11/04/17 04:29 Eosinophils % (Manual) 0 % (0.0-4.3) 11/04/17 04:29 Basophils % (Manual) 0 % (0.0-1.8) 11/04/17 04:29 Metamyelocytes % 0 % 11/04/17 04:29 Myelocytes % 0 % 11/04/17 04:29 Promyelocytes % 0 % 11/04/17 04:29 Blast Cells % 0 % 11/04/17 04:29 Nucleated RBC % Not Reportable 11/04/17 04:29 Seg Neutrophils # 10.5 K/mm3 (1.8-7.7) H 11/03/17 05:31 Seg Neutrophils # Man 4.6 K/mm3 (1.8-7.7) 11/04/17 04:29 Band Neutrophils # 1.5 K/mm3 11/04/17 04:29 Lymphocytes # (Manual) 0.5 K/mm3 (1.2-5.4) L 11/04/17 04:29 Abs React Lymphs (Man) 0.0 K/mm3 11/04/17 04:29 Monocytes # (Manual) 0.4 K/mm3 (0.0-0.8) 11/04/17 04:29 Eosinophils # (Manual) 0.0 K/mm3 (0.0-0.4) 11/04/17 04:29 Basophils # (Manual) 0.0 K/mm3 (0.0-0.1) 11/04/17 04:29 Metamyelocytes # 0.0 K/mm3 11/04/17 04:29 Myelocytes # 0.0 K/mm3 11/04/17 04:29 Promyelocytes # 0.0 K/mm3 11/04/17 04:29 Blast Cells # 0.0 K/mm3 11/04/17 04:29 WBC Morphology Not Reportable 11/04/17 04:29 Hypersegmented Neuts Not Reportable 11/04/17 04:29 Hyposegmented Neuts Not Reportable 11/04/17 04:29 Hypogranular Neuts Not Reportable 11/04/17 04:29 Smudge Cells Not Reportable 11/04/17 04:29 Toxic Granulation Not Reportable 11/04/17 04:29 Toxic Vacuolation Not Reportable 11/04/17 04:29 Dohle Bodies Not Reportable 11/04/17 04:29 Pelger-Huet Anomaly Not Reportable 11/04/17 04:29 [place] Rods Not Reportable 11/04/17 04:29 Platelet Estimate Appears normal 11/04/17 04:29 Clumped Platelets Not Reportable 11/04/17 04:29 Plt Clumps, EDTA Not Reportable 11/04/17 04:29 Large Platelets Not Reportable 11/04/17 04:29 Giant Platelets Not Reportable 11/04/17 04:29 Platelet Satelliting Not Reportable 11/04/17 04:29 Plt Morphology Comment Not Reportable 11/04/17 04:29 RBC Morphology Not Reportable 11/04/17 04:29 Dimorphic RBCs Not Reportable 11/04/17 04:29 Polychromasia Not Reportable 11/04/17 04:29 Hypochromasia 1+ 11/04/17 04:29 Poikilocytosis Not Reportable 11/04/17 04:29 Anisocytosis 1+ 11/04/17 04:29 Microcytosis Not Reportable 11/04/17 04:29 Macrocytosis Not Reportable 11/04/17 04:29 Spherocytes Not Reportable 11/04/17 04:29 Pappenheimer Bodies Not Reportable 11/04/17 04:29 Sickle Cells Not Reportable 11/04/17 04:29 Target Cells Not Reportable 11/04/17 04:29 Tear Drop Cells Not Reportable 11/04/17 04:29 Ovalocytes Few 11/04/17 04:29 Helmet Cells Not Reportable 11/04/17 04:29 [place] Bodies Not Reportable 11/04/17 04:29 [place] Rings Not Reportable 11/04/17 04:29 Central Cells Not Reportable 11/04/17 04:29 Bite Cells Not Reportable 11/04/17 04:29 Crenated Cell Not Reportable 11/04/17 04:29 Elliptocytes Not Reportable 11/04/17 04:29 Acanthocytes (Spur) Not Reportable 11/04/17 04:29 Rouleaux Not Reportable 11/04/17 04:29 Hemoglobin C Crystals Not Reportable 11/04/17 04:29 Schistocytes Not Reportable 11/04/17 04:29 Malaria parasites Not Reportable 11/04/17 04:29 Danny Bodies Not Reportable 11/04/17 04:29 Hem Pathologist Commnt No 11/04/17 04:29 PT 13.8 Sec. (12.2-14.9) 11/03/17 07:12 INR 1.01 (0.87-1.13) 11/03/17 07:12 POC ABG pH 7.369 (7.35-7.45) 11/04/17 10:25 POC ABG pCO2 53.0 (35-45) H 11/04/17 10:25 POC ABG pO2 67 (80-105) L 11/04/17 10:25 POC ABG HCO3 30.6 11/04/17 10:25 POC ABG Total CO2 32 11/04/17 10:25 POC ABG O2 Sat 92 11/04/17 10:25 POC ABG Base Excess 5 11/04/17 10:25 VBG pH 7.318 (7.320-7.420) L 11/03/17 07:12 FiO2 40 % 11/04/17 10:25 Sodium 142 mmol/L (137-145) 11/04/17 04:29 Potassium 4.4 mmol/L (3.6-5.0) 11/04/17 04:29 Chloride 103.6 mmol/L (98-107) 11/04/17 04:29 Carbon Dioxide 27 mmol/L (22-30) 11/04/17 04:29 Anion Gap 16 mmol/L 11/04/17 04:29 BUN 21 mg/dL (9-20) H 11/04/17 04:29 Creatinine 0.5 mg/dL (0.8-1.5) L 11/04/17 04:29 Estimated GFR > 60 ml/min 11/04/17 04:29 BUN/Creatinine Ratio 42 % 11/04/17 04:29 Glucose 141 mg/dL (75-100) H 11/04/17 04:29 Lactic Acid 0.90 mmol/L (0.7-2.0) 11/03/17 09:30 Calcium 8.3 mg/dL (8.4-10.2) L 11/04/17 04:29 Total Bilirubin 0.30 mg/dL (0.1-1.2) 11/03/17 07:12 AST 17 units/L (5-40) 11/03/17 07:12 ALT 12 units/L (7-56) 11/03/17 07:12 Alkaline Phosphatase 97 units/L (35-129) 11/03/17 07:12 Troponin T 0.015 ng/mL (0.00-0.029) 11/03/17 05:31 Total Protein 7.1 g/dL (6.3-8.2) 11/03/17 07:12 Albumin 3.6 g/dL (3.9-5) L 11/03/17 07:12 Albumin/Globulin Ratio 1.0 % 11/03/17 07:12 Urine Color Yellow (Yellow) 11/03/17 Unknown Urine Turbidity Clear (Clear) 11/03/17 Unknown Urine pH 5.0 (5.0-7.0) 11/03/17 Unknown Ur Specific [place] 1.018 (1.003-1.030) 11/03/17 Unknown Urine Protein <15 mg/dl mg/dL (Negative) 11/03/17 Unknown Urine Glucose (UA) Neg mg/dL (Negative) 11/03/17 Unknown Urine Ketones Tr mg/dL (Negative) 11/03/17 Unknown Urine Blood Neg (Negative) 11/03/17 Unknown Urine Nitrite Neg (Negative) 11/03/17 Unknown Urine Bilirubin Neg (Negative) 11/03/17 Unknown Urine Urobilinogen < 2.0 mg/dL (<2.0) 11/03/17 Unknown Ur Leukocyte Esterase Neg (Negative) 11/03/17 Unknown Urine WBC (Auto) 1.0 /HPF (0.0-6.0) 11/03/17 Unknown Urine RBC (Auto) 1.0 /HPF (0.0-6.0) 11/03/17 Unknown U Epithel Cells (Auto) < 1.0 /HPF (0-13.0) 11/03/17 Unknown Hyaline Casts 1 /LPF 11/03/17 Unknown Urine Mucus Few /HPF 11/03/17 Unknown
[2017-11-11] MEDS: ZESTRIL PO SCH (10:43)
[2017-11-11] MEDS: LOPRESSOR PO SCH (10:43)
[2017-11-11] MEDS: NORVASC PO SCH (10:43)
[2017-11-11] MEDS: DELTASONE PO SCH (10:43)
[2017-11-11] MEDS: DOLOPHINE PO SCH ×2 (10:44→18:57)
[2017-11-11] MEDS: LEVAQUIN PO SCH (10:44)
[2017-11-11] MEDS: LASIX PO SCH (10:44)
[2017-11-11] MEDS: LOVENOX SUB-Q SCH (10:45)
[2017-11-11 19:47] VITALS: BP 153/78
== END 2017-11-11 18:20 | DRG 853 ==
LOC: ED 05:07 → CC1 09:10 → 2B-ACE 11-04 17:53
PROVIDERS: ADMIT Internal Medicine; ATTEND Internal Medicine
PROC: 5A1945Z Respiratory Ventilation, 24-96 Consecutive Hours (ICD-10-PCS; principal; 2017-11-03)
PROC: 0BH17EZ Insertion of Endotracheal Airway into Trachea, Via Natural or Artificial Opening (ICD-10-PCS; 2017-11-03)
PROC: 5A09357 Assistance with Respiratory Ventilation, Less than 24 Consecutive Hours, Continuous Positive Airway Pressure (ICD-10-PCS; 2017-11-03)
PROC: 4A033R1 Measurement of Arterial Saturation, Peripheral, Percutaneous Approach (ICD-10-PCS; 2017-11-03)
PROC: 0VBH0ZZ Excision of Bilateral Spermatic Cords, Open Approach (ICD-10-PCS; 2017-11-09)
PROC: 0VQ50ZZ Repair Scrotum, Open Approach (ICD-10-PCS; 2017-11-09)
DX: A41.9 Sepsis, unspecified organism (principal); J69.0 Pneumonitis due to inhalation of food and vomit; G93.41 Metabolic encephalopathy; J96.21 Acute and chronic respiratory failure with hypoxia; J44.1 Chronic obstructive pulmonary disease with (acute) exacerbation; E46 Unspecified protein-calorie malnutrition; I16.0 Hypertensive urgency; Z68.28 Body mass index [BMI] 28.0-28.9, adult; Z88.0 Allergy status to penicillin; Z88.2 Allergy status to sulfonamides; Z88.8 Allergy status to other drugs, medicaments and biological substances; I10 Essential (primary) hypertension; Z87.891 Personal history of nicotine dependence; N43.3 Hydrocele, unspecified; I27.20 Pulmonary hypertension, unspecified; I25.10 Atherosclerotic heart disease of native coronary artery without angina pectoris
CPT/HCPCS: 36415; 36600; 71010; 80048; 80053; 81001; 82140; 82803; 82805; 84484; 85007; 85025; 85610; 87040; 87070; 87086; 87205; 88302; 88305; 93005; 93010; 93306; 93975; 94002; 94003; 94640; 94760; 96365; 99291; A9270-GY; G8978-GP; G8979-GP; G8987-GO; G8988-GO; G8996-GN; G8997-GN; G8998-GN; J1170; J1650; J1940; J1956; J2060; J2250; J2270; J2405; J2704; J2930; J3010; J7030; J7512

== ENCOUNTER 2017-11-17 19:38 | Inpatient (IN) | payer MEDICARE ==
[2017-11-18 07:55] LABS: BUN/Creatinine Ratio 43; Blood Urea Nitrogen 13 mg/dL (9-20); Calcium 7.8 mg/dL (8.4-10.2); Hemolysis Index 49
[2017-11-18 07:58] LABS: Basophils % (Auto) 0.2 % (0.0-1.8); Eosinophils # (Auto) 0.2 K/mm3 (0.0-0.4); Eosinophils % (Auto) 1.2 % (0.0-4.3); Hematocrit 32.3 % (35.5-45.6); Hemoglobin 10.4 gm/dl (11.8-15.2); Lymphocytes # (Auto) 1.3 K/mm3 (1.2-5.4); Lymphocytes % (Auto) 7.8 % (13.4-35.0); Mean Corpuscular HGB Conc 32 % (32-34); Mean Corpuscular Hemoglobin 27 pg (28-32); Mean Corpuscular Volume 84 fl (84-94); Monocytes # (Auto) 1.2 K/mm3 (0.0-0.8); Monocytes % (Auto) 7.4 % (0.0-7.3); Platelet Count 280 K/mm3 (140-440); Red Blood Count 3.87 M/mm3 (3.65-5.03); Red Cell Distribution Width 16.7 % (13.2-15.2)
--- NOTE | 2017-11-18 09:00 | History and Physical Report ---
History of Present Illness Date of examination: 11/18/17 Date of admission: 11/18/17 05:34 History of present illness: History of Present Illness: 1. Hydrocele The onset was gradual. Duration of symptoms is years. Severity is moderate. Symptoms occur Intermittently. The pain is located near the left testicle and right testicle. The problem is with no change. The patient's prior pertinent history does not include dysuria. Associated symptoms include swelling. Additional information: no history of scrotal trauma. presented to [facility] for scrotal wound problems. Transferred to [facility] overnight. 1. Assessment Scrotal pain (N50.82). Provider Plan ROSA HUNT MD / 02 PER NC / MOTOR WHEELCHAIR/ HTN - COPD - CHF / RT TESTES PAIN BRONSON (07-27-17) BILAT HYDRO----RT> LEFT , EPIDIDYMITIS GENT, CIPRO, PERCOCET BILAT HYDROCELECTOMY- - 11-09-17 at [facility] (Bertha) 2. Assessment Epididymitis (N45.1). Plan Orders 3. Assessment Other hydrocele (N43.2). plan - wound care consult (partial wound dehiscence - left side of scrotum---- wet to dry dressing) start abx - [facility] Hospitalist for medical management PAST MEDICAL/SURGICAL HISTORY (Detailed) Past Surgical Hx Management Date Comments Asthma YCS 06/30/2017 - Congestive heart failure COPD Hypertension Medications and Allergies Allergies Allergy/AdvReac Type Severity Reaction Status Date / Time Penicillins Allergy Mild Itching Verified 02/21/15 18:30 doxycycline Allergy Hives Verified 11/03/17 05:18 Sulfa (Sulfonamide Allergy Hives Verified 11/03/17 05:18 Antibiotics) sulfamethoxazole Allergy Hives Verified 11/03/17 05:18 [From Bactrim] trimethoprim [From Bactrim] Allergy Hives Verified 11/03/17 05:18 Home Medications Medication Instructions Recorded Confirmed Last Taken Type Prednisone 10 mg PO QDAY #21 tablet 02/26/15 11/03/17 Unknown Rx Diphenhydramine HCl [Complete 25 mg PO Q6H PRN 11/03/17 11/03/17 Unknown History Allergy] Fluticasone [Flonase] 1 spray NS QDAY 11/03/17 11/03/17 Unknown History ALBUTEROL NEB's [Proventil 0.083% 2.5 mg IH Q4HRT PRN #30 day 11/10/17 Unknown Rx NEBS] Acetaminophen [Acetaminophen TAB] 325 mg PO Q4H PRN #30 tablet 11/10/17 Unknown Rx Arformoterol Nebu [Brovana Nebu] 15 mcg IH Q12HRT #30 day 11/10/17 Unknown Rx Aspirin [Adult Low Dose Aspirin EC] 81 mg PO DAILY #30 day 11/10/17 11/03/17 Unknown Rx Atorvastatin Calcium [Lipitor] 10 mg PO DAILY #30 tablet 11/10/17 Unknown Rx Benzonatate [Tessalon Perle] 100 mg PO TID PRN #30 day 11/10/17 11/03/17 Unknown Rx Budesonide [Pulmicort Respules] 0.5 mg IH Q12HRT #30 day 11/10/17 Unknown Rx Furosemide [Lasix TAB] 20 mg PO QDAY #30 day 11/10/17 11/03/17 Unknown Rx Gabapentin [Neurontin] 100 mg PO Q8HR #30 day 11/10/17 11/03/17 Unknown Rx Ipratropium/Albuterol Sulfate 1 ampul IH Q6HRT #15 day 11/10/17 Unknown Rx [DUONEB *Not for PRN Use*] Levofloxacin [Levaquin TAB] 750 mg PO Q24H #7 day 11/10/17 Unknown Rx Lisinopril [Zestril TAB] 2.5 mg PO BID #30 tablet 11/10/17 Unknown Rx Methadone [Dolophine] 20 mg PO Q8H #30 day 11/10/17 11/03/17 Unknown Rx Metoprolol Tartrate 25 mg PO BID #30 day 11/10/17 11/03/17 Unknown Rx Polyethylene Glycol 3350 [Miralax 17 gm PO QDAY #30 day 11/10/17 11/03/17 Unknown Rx 3350] Tamsulosin [Flomax] 0.4 mg PO QHS #30 capsule 11/10/17 Unknown Rx amLODIPine [Norvasc] 10 mg PO DAILY #30 tablet 11/10/17 Unknown Rx methylPREDNISolone [Medrol Dose 1 dose PO DAILY #1 pack 11/10/17 Unknown Rx Tom] oxyCODONE /ACETAMINOPHEN [Percocet 1 tab PO Q4HR PRN #30 tab 11/10/17 Unknown Rx 5/325] Exam - Constitutional Vitals: Temp Pulse Resp BP Pulse Ox 98.6 F 64 20 106/55 97 11/18/17 07:53 11/18/17 06:01 11/18/17 07:53 11/18/17 07:53 11/18/17 06:01 General appearance: Present: no acute distress, well-nourished - EENT Eyes: Present: PERRL ENT: hearing intact, clear oral mucosa - Neck Neck: Present: supple, normal ROM - Respiratory Respiratory effort: normal Respiratory: bilateral: CTA - Cardiovascular Heart Sounds: Present: S1 & S2. Absent: rub, click - Extremities Extremities: pulses symmetrical, No edema Peripheral Pulses: within normal limits - Abdominal General gastrointestinal: Present: soft, non-tender, non-distended, normal bowel sounds Male genitourinary: Present: normal - Integumentary Integumentary: Present: clear, warm, dry - Musculoskeletal Musculoskeletal: gait normal, strength equal bilaterally - Psychiatric Psychiatric: appropriate mood/affect, intact judgment & insight - Neurologic Neurologic: CNII-XII intact, moves all extremities Results - Labs CBC & Chem 7: 11/18/17 07:10 11/18/17 07:10 Labs: Abnormal lab results 11/18/17 11/18/17 Range/Units 07:10 07:10 WBC 16.2 H (4.5-11.0) K/mm3 Hgb 10.4 L (11.8-15.2) gm/dl Hct 32.3 L (35.5-45.6) % MCH 27 L (28-32) pg RDW 16.7 H (13.2-15.2) % Lymph % (Auto) 7.8 L (13.4-35.0) % [place] % (Auto) 7.4 H (0.0-7.3) % [place] # 1.2 H (0.0-0.8) K/mm3 Seg Neutrophils % 83.4 H (40.0-70.0) % Seg Neutrophils # 13.5 H (1.8-7.7) K/mm3 Sodium 133 L (137-145) mmol/L Chloride 93.4 L (98-107) mmol/L Carbon Dioxide 32 H (22-30) mmol/L Creatinine 0.3 L (0.8-1.5) mg/dL Glucose 105 H (75-100) mg/dL Calcium 7.8 L (8.4-10.2) mg/dL
[2017-11-18] MEDS ORDERED: ZOFRAN IV PRN (09:10)
[2017-11-18] MEDS ORDERED: TYLENOL PO PRN (09:10)
[2017-11-18] MEDS ORDERED: MILK OF MAGNESIA PO PRN (09:10)
[2017-11-18] MEDS ORDERED: NARCAN 0.4 MG/1 ML IV PRN (09:10)
[2017-11-18] MEDS ORDERED: MORPHINE IV PRN (09:10)
[2017-11-18] MEDS ORDERED: NORCO 5/325 PO PRN (09:10)
[2017-11-18] MEDS: NACL 0.45% 1000 ML 1,000 ML IV SCH (09:34)
[2017-11-18] MEDS: LEVAQUIN 500MG/100ML 500 MG/100 ML BAG IV SCH (09:41)
[2017-11-18] MEDS ORDERED: DULCOLAX PR PRN (10:00)
--- NOTE | 2017-11-18 10:49 | Consultation ---
History of Present Illness - Reason for Consult Consult date: 11/18/17 Requesting physician: COMFORT ELDER - History of Present Illness Patient is a 68 years old male with past medical history of hypertension,Asthma, congestive heart failure, and COPD, who was consulted form neurology to us for medical management of hypertension, COPD and CHF. Patient has had partial wound dehiscence - left side of scrotum for Hydrocele ;this procedure occurred on 11/17/2017. Patient tolerated the procedure well and postoperatively, he is stable. Patient denies fever, chills chest pain, headache. Patient rates surgical area pain and rates her pain 4/10 at present time. Past History Past Medical History: COPD, hypertension, other (Asthma) Past Surgical History: Other (partial wound dehiscence - left side of scrotum) Social history: denies: smoking, alcohol abuse Family history: hypertension Medications and Allergies Allergies Allergy/AdvReac Type Severity Reaction Status Date / Time Penicillins Allergy Mild Itching Verified 02/21/15 18:30 doxycycline Allergy Hives Verified 11/03/17 05:18 Sulfa (Sulfonamide Allergy Hives Verified 11/03/17 05:18 Antibiotics) sulfamethoxazole Allergy Hives Verified 11/03/17 05:18 [From Bactrim] trimethoprim [From Bactrim] Allergy Hives Verified 11/03/17 05:18 Home Medications Medication Instructions Recorded Confirmed Last Taken Type Prednisone 10 mg PO QDAY #21 tablet 02/26/15 11/03/17 Unknown Rx Diphenhydramine HCl [Complete 25 mg PO Q6H PRN 11/03/17 11/03/17 Unknown History Allergy] Fluticasone [Flonase] 1 spray NS QDAY 11/03/17 11/03/17 Unknown History ALBUTEROL NEB's [Proventil 0.083% 2.5 mg IH Q4HRT PRN #30 day 11/10/17 Unknown Rx NEBS] Acetaminophen [Acetaminophen TAB] 325 mg PO Q4H PRN #30 tablet 11/10/17 Unknown Rx Arformoterol Nebu [Brovana Nebu] 15 mcg IH Q12HRT #30 day 11/10/17 Unknown Rx Aspirin [Adult Low Dose Aspirin EC] 81 mg PO DAILY #30 day 11/10/17 11/03/17 Unknown Rx Atorvastatin Calcium [Lipitor] 10 mg PO DAILY #30 tablet 11/10/17 Unknown Rx Benzonatate [Tessalon Perle] 100 mg PO TID PRN #30 day 11/10/17 11/03/17 Unknown Rx Budesonide [Pulmicort Respules] 0.5 mg IH Q12HRT #30 day 11/10/17 Unknown Rx Furosemide [Lasix TAB] 20 mg PO QDAY #30 day 11/10/17 11/03/17 Unknown Rx Gabapentin [Neurontin] 100 mg PO Q8HR #30 day 11/10/17 11/03/17 Unknown Rx Ipratropium/Albuterol Sulfate 1 ampul IH Q6HRT #15 day 11/10/17 Unknown Rx [DUONEB *Not for PRN Use*] Levofloxacin [Levaquin TAB] 750 mg PO Q24H #7 day 11/10/17 Unknown Rx Lisinopril [Zestril TAB] 2.5 mg PO BID #30 tablet 11/10/17 Unknown Rx Methadone [Dolophine] 20 mg PO Q8H #30 day 11/10/17 11/03/17 Unknown Rx Metoprolol Tartrate 25 mg PO BID #30 day 11/10/17 11/03/17 Unknown Rx Polyethylene Glycol 3350 [Miralax 17 gm PO QDAY #30 day 11/10/17 11/03/17 Unknown Rx 3350] Tamsulosin [Flomax] 0.4 mg PO QHS #30 capsule 11/10/17 Unknown Rx amLODIPine [Norvasc] 10 mg PO DAILY #30 tablet 11/10/17 Unknown Rx methylPREDNISolone [Medrol Dose 1 dose PO DAILY #1 pack 11/10/17 Unknown Rx Tom] oxyCODONE /ACETAMINOPHEN [Percocet 1 tab PO Q4HR PRN #30 tab 11/10/17 Unknown Rx 5/325] Active Meds: Active Medications Acetaminophen (Tylenol) 650 mg PO Q4H PRN PRN Reason: Pain MILD(1-3)/Fever >100.5/FLANAGAN Acetaminophen/Hydrocodone Bitart (Sultana 5/325) 2 each PO Q6H PRN PRN Reason: Pain, Moderate (4-6) Bisacodyl (Dulcolax) 10 mg [place] QDAY PRN PRN Reason: Constipation unrelieved by MOM Heparin Sodium (Porcine) (Heparin) 5,000 unit SUB-Q Q8HR [facility] Sodium Chloride (Nacl 0.45% 1000 Ml) 1,000 mls @ 42 mls/hr IV DIRECT KRISTY Last Admin: 11/18/17 09:34 Dose: 42 mls/hr Levofloxacin/Dextrose (Levaquin 500mg/100ml) 500 mg in 100 mls @ 100 mls/hr IV Q24HR KRISTY PRN Reason: Protocol Last Admin: 11/18/17 09:41 Dose: 100 mls/hr Magnesium Hydroxide (Milk Of Magnesia) 30 ml PO Q4H PRN PRN Reason: Constipation Morphine Sulfate (Morphine) 2 mg IV Q4H PRN PRN Reason: Pain, Moderate (4-6) Naloxone HCl (Narcan 0.4 Mg/1 Ml) 0.1 mg IV Q2MIN PRN PRN Reason: Res Rate </= 8 or 02 SAT < 92% Ondansetron HCl (Zofran) 4 mg IV Q8H PRN PRN Reason: N/V unrelieved by Reglan Review of Systems Constitutional: no weight loss, no weight gain, no fever Ears, nose, mouth and throat: no decreased hearing, no nose pain, no nasal discharge, no sinus pressure Cardiovascular: shortness of breath, dyspnea on exertion, no chest pain, no orthopnea, no palpitations, no syncope Respiratory: cough with sputum, shortness of breath, dyspnea on exertion Gastrointestinal: no nausea, no vomiting, no constipation Genitourinary Male: no dysuria, no hematuria, no flank pain Rectal: no incontinence, no bleeding Musculoskeletal: no shooting arm pain, no arm numbness/tingling, no low back pain, no shooting leg pain Integumentary: no sores, no wounds, no jaundice Neurological: no head injury, no paralysis, no parathesias Psychiatric: no anxiety, no change in sleep habits, no sleep disturbances Endocrine: no heat intolerance, no polyphagia, no polydipsia Hematologic/Lymphatic: no easy bruising, no easy bleeding Allergic/Immunologic: no urticaria, no allergic rhinitis Exam - Constitutional Vitals: Temp Pulse Resp BP Pulse Ox 98.6 F 64 20 106/55 97 11/18/17 07:53 11/18/17 06:01 11/18/17 07:53 11/18/17 07:53 11/18/17 06:01 General appearance: Present: mild distress, other (on 2LNC with spo2 93%) - EENT Eyes: Present: PERRL - Neck Neck: Present: supple - Respiratory Respiratory effort: normal Respiratory: bilateral: diminished, wheezing - Cardiovascular Rhythm: regular Heart Sounds: Present: S1 & S2 - Abdominal General gastrointestinal: Present: soft, non-tender Male genitourinary: Present: deferred - Rectal Rectal Exam: deferred - Integumentary Integumentary: Present: clear, warm, dry - Musculoskeletal Musculoskeletal: strength equal bilaterally - Psychiatric Psychiatric: appropriate mood/affect - Neurologic Neurologic: moves all extremities - Allied Health Allied health notes reviewed: nursing Results - Labs CBC & Chem 7: 11/18/17 07:10 11/18/17 07:10 Labs: Abnormal lab results 11/18/17 11/18/17 Range/Units 07:10 07:10 WBC 16.2 H (4.5-11.0) K/mm3 Hgb 10.4 L (11.8-15.2) gm/dl Hct 32.3 L (35.5-45.6) % MCH 27 L (28-32) pg RDW 16.7 H (13.2-15.2) % Lymph % (Auto) 7.8 L (13.4-35.0) % [place] % (Auto) 7.4 H (0.0-7.3) % [place] # 1.2 H (0.0-0.8) K/mm3 Seg Neutrophils % 83.4 H (40.0-70.0) % Seg Neutrophils # 13.5 H (1.8-7.7) K/mm3 Sodium 133 L (137-145) mmol/L Chloride 93.4 L (98-107) mmol/L Carbon Dioxide 32 H (22-30) mmol/L Creatinine 0.3 L (0.8-1.5) mg/dL Glucose 105 H (75-100) mg/dL Calcium 7.8 L (8.4-10.2) mg/dL Assessment and Plan Patient is a 68 years old male with past medical history of hypertension,Asthma, congestive heart failure, and COPD, who was consulted form neurology to us for medical management of hypertension, COPD and CHF. Patient has had partial wound dehiscence - left side of scrotum for Hydrocele ;this procedure occurred on 11/17/2017. Acute on chronic respiratory failure with hypoxia Patient oxygen saturation improved with 3LNC; currently SPO2 98%. No acute respiratory distress noted. Aggressive Nebulizers/Inhalers ABG when necessary Oxygen supplement Supportive care Acute COPD exacerbation Chest xray ordered Continue on Duoneb every 6 hours Started on IV steroid Solumedrol Initiated empiric IV Rocephin and azithromycin Oxygen as necessary S/P Partial wound dehiscence - left side of scrotum Managed by urology Wound care consult Systolic Congestive heart failure/pulmonary edema Recent Echocardiogram on 11/06/17 with Ef of 45%50 Restart on Diuresis, beta blockers and ACEI/ARB Strict I&O's and daily weights Low-sodium/cardiac diet/fluid restriction Closely monitor electrolytes Cardiology evaluation Hyponatremia IV fluid that will correct it Closely monitor electrolytes Hypertensive urgency Continue home antihypertensive medications Closely monitor blood pressure Chronic anemia H&H stable for patient at this point; no blood transfusions needed Closely monitor H&H DVT prophylaxis Heparin
[2017-11-18] MEDS ORDERED: PROAIR IH PRN (10:54)
[2017-11-18] MEDS ORDERED: PROVENTIL IH PRN (11:04)
--- NOTE | 2017-11-18 11:52 | XRay Report ---
PORTABLE CHEST INDICATION: COPD versus CHF. COMPARISON: 11/05/2017 FINDINGS: Portable, frontal chest radiograph demonstrates grossly stable cardiomediastinal silhouette, aortic knob calcifications and demineralized bones with various degenerative changes. Interval clearing of right lung base with now well-visualized hemidiaphragm. Left lung base opacity/effusion also improved, though some persists with obscured left hemidiaphragm. No cephalization. EKG leads. CONCLUSION: Interval radiographic improvement of the lung bases, as described. No CHF. Thank you for the opportunity to participate in this patient's care.
[2017-11-18] MEDS: DOLOPHINE PO SCH ×2 (12:04→23:54)
[2017-11-18] MEDS: NEURONTIN PO SCH ×2 (13:45→23:35)
[2017-11-18] MEDS: HEPARIN SUB-Q SCH (13:47)
[2017-11-18] MEDS: DUONEB *Not for PRN Use IH SCH ×2 (13:48→21:54)
[2017-11-18] MEDS ORDERED: DUONEB *Not for PRN Use IH SCH (14:00)
[2017-11-18] MEDS: PULMICORT IH SCH (21:54)
[2017-11-18] MEDS: FLOMAX PO SCH (23:40)
[2017-11-18] MEDS: ZESTRIL PO SCH (23:42)
[2017-11-18] MEDS: LOPRESSOR PO SCH (23:43)
[2017-11-18] MEDS: TESSALON PERLES PO PRN (23:55)
[2017-11-19] MEDS: DUONEB *Not for PRN Use IH SCH ×4 (02:38→19:27)
[2017-11-19 04:52] LABS: Hematocrit 33.1 % (35.5-45.6); Hemoglobin 10.5 gm/dl (11.8-15.2); Mean Corpuscular HGB Conc 32 % (32-34); Mean Corpuscular Hemoglobin 26 pg (28-32); Mean Corpuscular Volume 82 fl (84-94); Platelet Count 254 K/mm3 (140-440); Red Blood Count 4.04 M/mm3 (3.65-5.03)
[2017-11-19 05:10] LABS: BUN/Creatinine Ratio 40; Blood Urea Nitrogen 16 mg/dL (9-20); Hemolysis Index 7
[2017-11-19 05:48] LABS: Band Neutrophils # (Manual) 0.8 K/mm3; Eosinophils % (Manual) 0 % (0.0-4.3); Total Cells Counted 100
[2017-11-19 05:49] LABS: Basophils % (Manual) 0 % (0.0-1.8)
[2017-11-19 05:52] LABS: Anisocytosis 1+; Platelet Estimate Consistent w Auto
[2017-11-19] MEDS: PULMICORT IH SCH ×2 (07:39→19:27)
[2017-11-19] MEDS: FLONASE NS SCH (09:11)
[2017-11-19] MEDS: LEVAQUIN 500MG/100ML 500 MG/100 ML BAG IV SCH (09:12)
[2017-11-19] MEDS: MIRALAX 3350 PO SCH (09:12)
[2017-11-19] MEDS: HALFPRIN EC PO SCH (09:13)
[2017-11-19] MEDS: NEURONTIN PO SCH ×3 (09:13→21:56)
[2017-11-19] MEDS: LASIX PO SCH (09:13)
[2017-11-19] MEDS: DELTASONE PO SCH (09:13)
[2017-11-19] MEDS: HEPARIN SUB-Q SCH ×3 (09:18→21:57)
[2017-11-19] MEDS: LOPRESSOR PO SCH ×2 (10:43→21:19)
[2017-11-19] MEDS: NORVASC PO SCH (10:44)
[2017-11-19] MEDS: ZESTRIL PO SCH ×2 (10:44→21:20)
--- NOTE | 2017-11-19 12:19 | Progress Note ---
Subjective Date of service: 11/19/17 Interval history: Patient is a 68 years old male with past medical history of hypertension,Asthma, congestive heart failure, and COPD. Patient has had partial wound dehiscence - left side of scrotum for Hydrocele ;this procedure occurred on 11/17/2017. Patient tolerated the procedure well and postoperatively, he is stable. incision looks good Pt feels better WBC trending down on Levaquin tierney - clear urine A/P ok to transfer back to skilled rehab with Levaquin 500mg#14,1qd & Percocet (on chart) pt needs BID wet to dry dressing change to scrotum - discussed with nurse kimberly tierney Objective - Constitutional Vitals: Vital Signs - 12hr 11/19/17 11/19/17 11/19/17 02:39 04:17 07:41 Temperature 97.7 F Pulse Rate 67 Pulse Rate [ 66 68 Anterior Bilateral Throughout] Respiratory 18 Rate Respiratory 18 18 Rate [Anterior Bilateral Throughout] Blood Pressure 105/53 O2 Sat by Pulse 96 Oximetry 11/19/17 11/19/17 11/19/17 07:42 08:18 10:00 Temperature 98.6 F Pulse Rate 87 84 Pulse Rate [ Anterior Bilateral Throughout] Respiratory 20 Rate Respiratory Rate [Anterior Bilateral Throughout] Blood Pressure 112/52 O2 Sat by Pulse 96 90 Oximetry - Labs CBC & Chem 7: 11/19/17 04:31 11/19/17 04:31 Labs: Abnormal lab results 11/19/17 11/19/17 Range/Units 04:31 04:31 WBC 11.5 H (4.5-11.0) K/mm3 Hgb 10.5 L (11.8-15.2) gm/dl Hct 33.1 L (35.5-45.6) % MCV 82 L (84-94) fl MCH 26 L (28-32) pg RDW 17.0 H (13.2-15.2) % Seg Neuts % (Manual) 91.0 H (40.0-70.0) % Lymphocytes % (Manual) 1.0 L (13.4-35.0) % Seg Neutrophils # Man 10.5 H (1.8-7.7) K/mm3 Lymphocytes # (Manual) 0.1 L (1.2-5.4) K/mm3 Sodium 135 L (137-145) mmol/L Chloride 94.6 L (98-107) mmol/L Carbon Dioxide 31 H (22-30) mmol/L Creatinine 0.4 L (0.8-1.5) mg/dL Glucose 250 H (75-100) mg/dL Calcium 8.0 L (8.4-10.2) mg/dL
--- NOTE | 2017-11-19 14:33 | Progress Note ---
Assessment and Plan Assessment and Plan Patient is a 68 years old male with past medical history of hypertension,Asthma, congestive heart failure, and COPD, who was consulted form neurology to us for medical management of hypertension, COPD and CHF. Patient has had partial wound dehiscence - left side of scrotum for Hydrocele ;this procedure occurred on 11/17/2017. Acute on chronic respiratory failure with hypoxia Patient oxygen saturation improved with 3LNC; currently SPO2 98%. No acute respiratory distress noted. Aggressive Nebulizers/Inhalers ABG when necessary Oxygen supplement Supportive care Acute COPD exacerbation Chest xray ordered Continue on Duoneb every 6 hours Started on IV steroid Solumedrol Initiated empiric IV Rocephin and azithromycin Oxygen as necessary S/P Partial wound dehiscence - left side of scrotum Managed by urology Wound care consult Systolic Congestive heart failure/pulmonary edema Recent Echocardiogram on 11/06/17 with Ef of 45%50 Restart on Diuresis, beta blockers and ACEI/ARB Strict I&O's and daily weights Low-sodium/cardiac diet/fluid restriction Closely monitor electrolytes Cardiology evaluation Hyponatremia IV fluid that will correct it Closely monitor electrolytes Hypertensive urgency Continue home antihypertensive medications Closely monitor blood pressure Chronic anemia H&H stable for patient at this point; no blood transfusions needed Closely monitor H&H DVT prophylaxis Heparin Subjective Date of service: 11/19/17 Principal diagnosis: Acute resp failure Interval history: Doing better Objective - Constitutional Vitals: Vital Signs - 12hr 11/19/17 11/19/17 11/19/17 02:39 04:17 07:41 Temperature 97.7 F Pulse Rate 67 Pulse Rate [ 66 68 Anterior Bilateral Throughout] Respiratory 18 Rate Respiratory 18 18 Rate [Anterior Bilateral Throughout] Blood Pressure 105/53 O2 Sat by Pulse 96 Oximetry 11/19/17 11/19/17 11/19/17 07:42 08:10 08:18 Temperature 98.6 F Pulse Rate 87 Pulse Rate [ 72 Anterior Bilateral Throughout] Respiratory 20 Rate Respiratory 18 Rate [Anterior Bilateral Throughout] Blood Pressure 112/52 O2 Sat by Pulse 96 90 Oximetry 11/19/17 10:00 Temperature Pulse Rate 84 Pulse Rate [ Anterior Bilateral Throughout] Respiratory Rate Respiratory Rate [Anterior Bilateral Throughout] Blood Pressure O2 Sat by Pulse Oximetry General appearance: Present: no acute distress, well-nourished - EENT Eyes: PERRL, EOM intact ENT: hearing intact, clear oral mucosa Ears: bilateral: normal - Neck Neck: supple, normal ROM - Respiratory Respiratory effort: normal Respiratory: bilateral: CTA, rhonchi, wheezing - Breasts Breasts: normal - Cardiovascular Rhythm: regular Heart Sounds: Present: S1 & S2. Absent: gallop, rub Extremities: pulses intact, No edema, normal color, Full ROM - Gastrointestinal General gastrointestinal: Present: soft, non-tender, non-distended, normal bowel sounds - Genitourinary Male genitourinary: normal - Integumentary Integumentary: clear, warm, dry - Musculoskeletal Musculoskeletal: 1, strength equal bilaterally - Neurologic Neurologic: moves all extremities - Psychiatric Psychiatric: memory intact, appropriate mood/affect, intact judgment & insight - Labs CBC & Chem 7: 11/19/17 04:31 11/19/17 04:31 Labs: Abnormal lab results 11/19/17 11/19/17 Range/Units 04:31 04:31 WBC 11.5 H (4.5-11.0) K/mm3 Hgb 10.5 L (11.8-15.2) gm/dl Hct 33.1 L (35.5-45.6) % MCV 82 L (84-94) fl MCH 26 L (28-32) pg RDW 17.0 H (13.2-15.2) % Seg Neuts % (Manual) 91.0 H (40.0-70.0) % Lymphocytes % (Manual) 1.0 L (13.4-35.0) % Seg Neutrophils # Man 10.5 H (1.8-7.7) K/mm3 Lymphocytes # (Manual) 0.1 L (1.2-5.4) K/mm3 Sodium 135 L (137-145) mmol/L Chloride 94.6 L (98-107) mmol/L Carbon Dioxide 31 H (22-30) mmol/L Creatinine 0.4 L (0.8-1.5) mg/dL Glucose 250 H (75-100) mg/dL Calcium 8.0 L (8.4-10.2) mg/dL
[2017-11-19] MEDS: DOLOPHINE PO SCH ×2 (15:21→20:15)
[2017-11-19] MEDS: FLOMAX PO SCH (21:56)
[2017-11-20] MEDS: DUONEB *Not for PRN Use IH SCH ×4 (01:30→20:13)
[2017-11-20] MEDS: DOLOPHINE PO SCH ×3 (04:28→20:29)
[2017-11-20 05:49] LABS: Hematocrit 30.8 % (35.5-45.6); Hemoglobin 9.8 gm/dl (11.8-15.2); Mean Corpuscular HGB Conc 32 % (32-34); Mean Corpuscular Hemoglobin 26 pg (28-32); Mean Corpuscular Volume 83 fl (84-94); Platelet Count 249 K/mm3 (140-440); Red Blood Count 3.71 M/mm3 (3.65-5.03)
[2017-11-20 06:06] LABS: BUN/Creatinine Ratio 55; Blood Urea Nitrogen 22 mg/dL (9-20); Calcium 8.2 mg/dL (8.4-10.2); Hemolysis Index 5
[2017-11-20] MEDS: HEPARIN SUB-Q SCH ×3 (06:25→22:12)
[2017-11-20] MEDS: NEURONTIN PO SCH ×3 (06:25→22:11)
[2017-11-20] MEDS: NACL 0.45% 1000 ML 1,000 ML IV SCH (06:26)
[2017-11-20 06:34] LABS: Anisocytosis 1+; Basophils % (Manual) 0 % (0.0-1.8); Eosinophils % (Manual) 0 % (0.0-4.3); Ovalocytes 2+; Total Cells Counted 100
--- NOTE | 2017-11-20 08:17 | Progress Note ---
Assessment and Plan Assessment and plan: Acute on chronic respiratory failure with hypoxia Patient oxygen saturation improved with 3LNC; currently SPO2 98%. No acute respiratory distress noted. Aggressive Nebulizers/Inhalers ABG when necessary Oxygen supplement Supportive care Acute COPD exacerbation Chest xray ordered Continue on Duoneb every 6 hours Started on IV steroid Solumedrol Initiated empiric IV Rocephin and azithromycin Oxygen as necessary S/P Partial wound dehiscence - left side of scrotum Managed by urology Wound care Systolic Congestive heart failure/pulmonary edema Recent Echocardiogram on 11/06/17 with Ef of 45%50 Cont Diuresis, beta blockers and ACEI/ARB Strict I&O's and daily weights Low-sodium/cardiac diet/fluid restriction Closely monitor electrolytes Cardiology evaluation Hyponatremia IV fluid that will correct it Closely monitor electrolytes Hypertensive urgency Continue home antihypertensive medications Closely monitor blood pressure Chronic anemia H&H stable for patient at this point; no blood transfusions needed Closely monitor H&H DVT prophylaxis Heparin Disposition transfer to SNF when bed available History Interval history: no new issues overnight Hospitalist Physical - Constitutional Vitals: Temp Pulse Resp BP Pulse Ox 98.8 F 98 H 20 129/65 93 11/20/17 07:59 11/20/17 07:59 11/20/17 07:59 11/20/17 07:59 11/20/17 07:59 General appearance: Present: no acute distress, well-nourished - EENT Eyes: Present: PERRL, EOM intact ENT: hearing intact, clear oral mucosa, dentition normal - Neck Neck: Present: supple, normal ROM - Respiratory Respiratory effort: normal Respiratory: bilateral: CTA - Cardiovascular Rhythm: regular Heart Sounds: Present: S1 & S2. Absent: gallop, rub - Extremities Extremities: no ischemia, No edema, Full ROM - Abdominal General gastrointestinal: soft, non-tender, non-distended, normal bowel sounds - Integumentary Integumentary: Present: clear, warm, dry - Neurologic Neurologic: CNII-XII intact, moves all extremities Results - Labs CBC & Chem 7: 11/20/17 05:25 11/20/17 05:25 Labs: Laboratory Last Values WBC 19.9 K/mm3 (4.5-11.0) H 11/20/17 05:25 RBC 3.71 M/mm3 (3.65-5.03) 11/20/17 05:25 Hgb 9.8 gm/dl (11.8-15.2) L 11/20/17 05:25 Hct 30.8 % (35.5-45.6) L 11/20/17 05:25 MCV 83 fl (84-94) L 11/20/17 05:25 MCH 26 pg (28-32) L 11/20/17 05:25 MCHC 32 % (32-34) 11/20/17 05:25 RDW 17.0 % (13.2-15.2) H 11/20/17 05:25 Plt Count 249 K/mm3 (140-440) 11/20/17 05:25 Lymph % (Auto) 7.8 % (13.4-35.0) L 11/18/17 07:10 [place] % (Auto) 7.4 % (0.0-7.3) H 11/18/17 07:10 Eos % (Auto) 1.2 % (0.0-4.3) 11/18/17 07:10 Baso % (Auto) 0.2 % (0.0-1.8) 11/18/17 07:10 Lymph # 1.3 K/mm3 (1.2-5.4) 11/18/17 07:10 [place] # 1.2 K/mm3 (0.0-0.8) H 11/18/17 07:10 Eos # 0.2 K/mm3 (0.0-0.4) 11/18/17 07:10 Baso # 0.0 K/mm3 (0.0-0.1) 11/18/17 07:10 Add Manual Diff Complete 11/20/17 05:25 Total Counted 100 11/20/17 05:25 Seg Neutrophils % Patient Centered Care Specialist 11/20/17 05:25 Seg Neuts % (Manual) 98.0 % (40.0-70.0) H 11/20/17 05:25 Band Neutrophils % 0 % 11/20/17 05:25 Lymphocytes % (Manual) 1.0 % (13.4-35.0) L 11/20/17 05:25 Reactive Lymphs % (Man) 0 % 11/20/17 05:25 Monocytes % (Manual) 1.0 % (0.0-7.3) 11/20/17 05:25 Eosinophils % (Manual) 0 % (0.0-4.3) 11/20/17 05:25 Basophils % (Manual) 0 % (0.0-1.8) 11/20/17 05:25 Metamyelocytes % 0 % 11/20/17 05:25 Myelocytes % 0 % 11/20/17 05:25 Promyelocytes % 0 % 11/20/17 05:25 Blast Cells % 0 % 11/20/17 05:25 Nucleated RBC % Not Reportable 11/20/17 05:25 Seg Neutrophils # 13.5 K/mm3 (1.8-7.7) H 11/18/17 07:10 Seg Neutrophils # Man 19.5 K/mm3 (1.8-7.7) H 11/20/17 05:25 Band Neutrophils # 0.0 K/mm3 11/20/17 05:25 Lymphocytes # (Manual) 0.2 K/mm3 (1.2-5.4) L 11/20/17 05:25 Abs React Lymphs (Man) 0.0 K/mm3 11/20/17 05:25 Monocytes # (Manual) 0.2 K/mm3 (0.0-0.8) 11/20/17 05:25 Eosinophils # (Manual) 0.0 K/mm3 (0.0-0.4) 11/20/17 05:25 Basophils # (Manual) 0.0 K/mm3 (0.0-0.1) 11/20/17 05:25 Metamyelocytes # 0.0 K/mm3 11/20/17 05:25 Myelocytes # 0.0 K/mm3 11/20/17 05:25 Promyelocytes # 0.0 K/mm3 11/20/17 05:25 Blast Cells # 0.0 K/mm3 11/20/17 05:25 WBC Morphology Not Reportable 11/20/17 05:25 Hypersegmented Neuts Not Reportable 11/20/17 05:25 Hyposegmented Neuts Not Reportable 11/20/17 05:25 Hypogranular Neuts Not Reportable 11/20/17 05:25 Smudge Cells Not Reportable 11/20/17 05:25 Toxic Granulation Not Reportable 11/20/17 05:25 Toxic Vacuolation Not Reportable 11/20/17 05:25 Dohle Bodies Not Reportable 11/20/17 05:25 Pelger-Huet Anomaly Not Reportable 11/20/17 05:25 [place]may Rods Not Reportable 11/20/17 05:25 Platelet Estimate Appears normal 11/20/17 05:25 Clumped Platelets Not Reportable 11/20/17 05:25 Plt Clumps, EDTA Not Reportable 11/20/17 05:25 Large Platelets Not Reportable 11/20/17 05:25 Giant Platelets Not Reportable 11/20/17 05:25 Platelet Satelliting Not Reportable 11/20/17 05:25 Plt Morphology Comment Not Reportable 11/20/17 05:25 RBC Morphology Not Reportable 11/20/17 05:25 Dimorphic RBCs Not Reportable 11/20/17 05:25 Polychromasia Not Reportable 11/20/17 05:25 Hypochromasia Not Reportable 11/20/17 05:25 Poikilocytosis Not Reportable 11/20/17 05:25 Anisocytosis 1+ 11/20/17 05:25 Microcytosis Not Reportable 11/20/17 05:25 Macrocytosis Not Reportable 11/20/17 05:25 Spherocytes Not Reportable 11/20/17 05:25 Pappenheimer Bodies Not Reportable 11/20/17 05:25 Sickle Cells Not Reportable 11/20/17 05:25 Target Cells Not Reportable 11/20/17 05:25 Tear Drop Cells Not Reportable 11/20/17 05:25 Ovalocytes 2+ 11/20/17 05:25 Helmet Cells Not Reportable 11/20/17 05:25 Castro-Dufur Bodies Not Reportable 11/20/17 05:25 [place] Rings Not Reportable 11/20/17 05:25 Hale Cells Not Reportable 11/20/17 05:25 Bite Cells Not Reportable 11/20/17 05:25 Crenated Cell Not Reportable 11/20/17 05:25 Elliptocytes Few 11/20/17 05:25 Acanthocytes (Spur) Not Reportable 11/20/17 05:25 Rouleaux Not Reportable 11/20/17 05:25 Hemoglobin C Crystals Not Reportable 11/20/17 05:25 Schistocytes Not Reportable 11/20/17 05:25 Malaria parasites Not Reportable 11/20/17 05:25 Danny Bodies Not Reportable 11/20/17 05:25 Hem Pathologist Commnt No 11/20/17 05:25 Sodium 138 mmol/L (137-145) 11/20/17 05:25 Potassium 4.6 mmol/L (3.6-5.0) 11/20/17 05:25 Chloride 96.1 mmol/L (98-107) L 11/20/17 05:25 Carbon Dioxide 29 mmol/L (22-30) 11/20/17 05:25 Anion Gap 18 mmol/L 11/20/17 05:25 BUN 22 mg/dL (9-20) H 11/20/17 05:25 Creatinine 0.4 mg/dL (0.8-1.5) L 11/20/17 05:25 Estimated GFR > 60 ml/min 11/20/17 05:25 BUN/Creatinine Ratio 55 % 11/20/17 05:25 Glucose 168 mg/dL (75-100) H 11/20/17 05:25 Calcium 8.2 mg/dL (8.4-10.2) L 11/20/17 05:25
[2017-11-20] MEDS: PULMICORT IH SCH ×2 (08:39→20:13)
[2017-11-20] MEDS: LEVAQUIN 500MG/100ML 500 MG/100 ML BAG IV SCH (09:01)
[2017-11-20] MEDS: MIRALAX 3350 PO SCH (09:02)
[2017-11-20] MEDS: HALFPRIN EC PO SCH (09:02)
[2017-11-20] MEDS: LOPRESSOR PO SCH ×2 (09:02→22:13)
[2017-11-20] MEDS: LASIX PO SCH (09:03)
[2017-11-20] MEDS: DELTASONE PO SCH (09:03)
[2017-11-20] MEDS: FLONASE NS SCH (09:05)
[2017-11-20] MEDS: ZESTRIL PO SCH ×2 (10:08→22:14)
[2017-11-20] MEDS: NORVASC PO SCH (10:08)
--- NOTE | 2017-11-20 15:32 | Progress Note ---
Subjective Date of service: 11/20/17 Principal diagnosis: Acute resp failure Interval history: Patient is a 68 years old male with past medical history of hypertension,Asthma, congestive heart failure, and COPD. Patient has had partial wound dehiscence - left side of scrotum for Hydrocele ;this procedure occurred on 11/17/2017. Patient tolerated the procedure well and postoperatively, he is stable. incision looks good Pt feels better on Levaquin tierney - clear urine A/P ok to transfer back to skilled rehab with Levaquin 500mg#14,1qd & Percocet (on chart) pt needs BID wet to dry dressing change to scrotum - discussed with nurse continue tierney Disposition transfer to SNF when bed available Objective - Constitutional Vitals: Vital Signs - 12hr 11/20/17 11/20/17 11/20/17 04:17 04:28 07:59 Temperature 97.3 F L 98.8 F Pulse Rate 97 H 98 H Pulse Rate [ Anterior Bilateral Throughout] Respiratory 18 20 20 Rate Respiratory Rate [Anterior Bilateral Throughout] Blood Pressure 114/57 129/65 O2 Sat by Pulse 96 93 Oximetry 11/20/17 11/20/17 11/20/17 08:39 08:41 09:00 Temperature Pulse Rate Pulse Rate [ 101 H 96 H Anterior Bilateral Throughout] Respiratory Rate Respiratory 18 18 Rate [Anterior Bilateral Throughout] Blood Pressure O2 Sat by Pulse 96 Oximetry 11/20/17 11/20/17 11/20/17 09:02 14:15 14:32 Temperature Pulse Rate 98 H Pulse Rate [ 73 73 Anterior Bilateral Throughout] Respiratory Rate Respiratory 16 20 Rate [Anterior Bilateral Throughout] Blood Pressure 129/65 O2 Sat by Pulse Oximetry - Labs CBC & Chem 7: 11/20/17 05:25 11/20/17 05:25 Labs: Abnormal lab results 11/20/17 11/20/17 Range/Units 05:25 05:25 WBC 19.9 H (4.5-11.0) K/mm3 Hgb 9.8 L (11.8-15.2) gm/dl Hct 30.8 L (35.5-45.6) % MCV 83 L (84-94) fl MCH 26 L (28-32) pg RDW 17.0 H (13.2-15.2) % Seg Neuts % (Manual) 98.0 H (40.0-70.0) % Lymphocytes % (Manual) 1.0 L (13.4-35.0) % Seg Neutrophils # Man 19.5 H (1.8-7.7) K/mm3 Lymphocytes # (Manual) 0.2 L (1.2-5.4) K/mm3 Chloride 96.1 L (98-107) mmol/L BUN 22 H (9-20) mg/dL Creatinine 0.4 L (0.8-1.5) mg/dL Glucose 168 H (75-100) mg/dL Calcium 8.2 L (8.4-10.2) mg/dL
[2017-11-20] MEDS: FLOMAX PO SCH (22:11)
[2017-11-21] MEDS: DUONEB *Not for PRN Use IH SCH ×4 (01:02→19:20)
[2017-11-21] MEDS: NACL 0.45% 1000 ML 1,000 ML IV SCH (03:11)
[2017-11-21] MEDS: DOLOPHINE PO SCH ×3 (04:47→22:28)
[2017-11-21 05:39] LABS: Hemoglobin 9.2 gm/dl (11.8-15.2); Mean Corpuscular HGB Conc 33 % (32-34); Mean Corpuscular Hemoglobin 27 pg (28-32); Mean Corpuscular Volume 82 fl (84-94); Platelet Count 201 K/mm3 (140-440); Red Blood Count 3.43 M/mm3 (3.65-5.03)
[2017-11-21 05:59] LABS: BUN/Creatinine Ratio 73; Blood Urea Nitrogen 22 mg/dL (9-20); Calcium 7.8 mg/dL (8.4-10.2); Hemolysis Index 15
[2017-11-21 06:28] LABS: Basophils % (Manual) 0 % (0.0-1.8); Eosinophils % (Manual) 0 % (0.0-4.3); Monocytes % (Manual) 0 % (0.0-7.3); Total Cells Counted 100
[2017-11-21 06:29] LABS: Anisocytosis 1+; Ovalocytes 2+; Poikilocytosis 1+; Target Cells Rare
[2017-11-21] MEDS: HEPARIN SUB-Q SCH ×3 (06:34→22:45)
[2017-11-21] MEDS: NEURONTIN PO SCH ×3 (06:34→22:29)
[2017-11-21 06:44] LABS: BUN/Creatinine Ratio 73; Blood Urea Nitrogen 22 mg/dL (9-20); Calcium 7.7 mg/dL (8.4-10.2); Hemolysis Index 5
[2017-11-21] MEDS: PULMICORT IH SCH ×2 (07:42→19:20)
--- NOTE | 2017-11-21 09:11 | Progress Note ---
Assessment and Plan Assessment and plan: Acute on chronic respiratory failure with hypoxia Patient oxygen saturation improved with 3LNC; currently SPO2 98%. No acute respiratory distress noted. Aggressive Nebulizers/Inhalers ABG when necessary Oxygen supplement Supportive care Acute COPD exacerbation Chest xray ordered Continue on Duoneb every 6 hours Started on IV steroid Solumedrol Oxygen as necessary S/P Partial wound dehiscence - left side of scrotum Managed by urology Wound care Levaquin 500mg#14 Leukocytosis Etiology secondary to steroids Systolic Congestive heart failure/pulmonary edema Recent Echocardiogram on 11/06/17 with Ef of 45-50% Cont Diuresis, beta blockers and ACEI/ARB Strict I&O's and daily weights Low-sodium/cardiac diet/fluid restriction Closely monitor electrolytes Cardiology evaluation Hyponatremia IV fluid that will correct it Closely monitor electrolytes Hypertensive urgency Continue home antihypertensive medications Closely monitor blood pressure Chronic anemia H&H stable for patient at this point; no blood transfusions needed Closely monitor H&H DVT prophylaxis Heparin Disposition transfer to SNF when bed available History Interval history: no new issues overnight Hospitalist Physical - Constitutional Vitals: Temp Pulse Resp BP Pulse Ox 98.7 F 90 16 128/66 97 11/21/17 08:02 11/21/17 08:09 11/21/17 08:09 11/21/17 08:02 11/21/17 08:02 General appearance: Present: no acute distress, well-nourished - EENT Eyes: Present: PERRL, EOM intact ENT: hearing intact, clear oral mucosa, dentition normal - Neck Neck: Present: supple, normal ROM - Respiratory Respiratory effort: normal Respiratory: bilateral: CTA - Cardiovascular Rhythm: regular Heart Sounds: Present: S1 & S2. Absent: gallop, rub - Extremities Extremities: no ischemia, No edema, Full ROM - Abdominal General gastrointestinal: soft, non-tender, non-distended, normal bowel sounds - Integumentary Integumentary: Present: clear, warm, dry - Neurologic Neurologic: CNII-XII intact, moves all extremities Results - Labs CBC & Chem 7: 11/21/17 04:54 11/21/17 06:17 Labs: Laboratory Last Values WBC 18.5 K/mm3 (4.5-11.0) H 11/21/17 04:54 RBC 3.43 M/mm3 (3.65-5.03) L 11/21/17 04:54 Hgb 9.2 gm/dl (11.8-15.2) L 11/21/17 04:54 Hct 28.0 % (35.5-45.6) L 11/21/17 04:54 MCV 82 fl (84-94) L 11/21/17 04:54 MCH 27 pg (28-32) L 11/21/17 04:54 MCHC 33 % (32-34) 11/21/17 04:54 RDW 17.0 % (13.2-15.2) H 11/21/17 04:54 Plt Count 201 K/mm3 (140-440) 11/21/17 04:54 Lymph % (Auto) 7.8 % (13.4-35.0) L 11/18/17 07:10 [place] % (Auto) 7.4 % (0.0-7.3) H 11/18/17 07:10 Eos % (Auto) 1.2 % (0.0-4.3) 11/18/17 07:10 Baso % (Auto) 0.2 % (0.0-1.8) 11/18/17 07:10 Lymph # 1.3 K/mm3 (1.2-5.4) 11/18/17 07:10 [place] # 1.2 K/mm3 (0.0-0.8) H 11/18/17 07:10 Eos # 0.2 K/mm3 (0.0-0.4) 11/18/17 07:10 Baso # 0.0 K/mm3 (0.0-0.1) 11/18/17 07:10 Add Manual Diff Complete 11/21/17 04:54 Total Counted 100 11/21/17 04:54 Seg Neutrophils % Spanish Language Lecturer 11/21/17 04:54 Seg Neuts % (Manual) 99.0 % (40.0-70.0) H 11/21/17 04:54 Band Neutrophils % 0 % 11/21/17 04:54 Lymphocytes % (Manual) 0 % (13.4-35.0) L 11/21/17 04:54 Reactive Lymphs % (Man) 0 % 11/21/17 04:54 Monocytes % (Manual) 0 % (0.0-7.3) 11/21/17 04:54 Eosinophils % (Manual) 0 % (0.0-4.3) 11/21/17 04:54 Basophils % (Manual) 0 % (0.0-1.8) 11/21/17 04:54 Metamyelocytes % 1.0 % 11/21/17 04:54 Myelocytes % 0 % 11/21/17 04:54 Promyelocytes % 0 % 11/21/17 04:54 Blast Cells % 0 % 11/21/17 04:54 Nucleated RBC % 2.0 % (0.0-0.9) H 11/21/17 04:54 Seg Neutrophils # 13.5 K/mm3 (1.8-7.7) H 11/18/17 07:10 Seg Neutrophils # Man 18.3 K/mm3 (1.8-7.7) H 11/21/17 04:54 Band Neutrophils # 0.0 K/mm3 11/21/17 04:54 Lymphocytes # (Manual) 0.0 K/mm3 (1.2-5.4) L 11/21/17 04:54 Abs React Lymphs (Man) 0.0 K/mm3 11/21/17 04:54 Monocytes # (Manual) 0.0 K/mm3 (0.0-0.8) 11/21/17 04:54 Eosinophils # (Manual) 0.0 K/mm3 (0.0-0.4) 11/21/17 04:54 Basophils # (Manual) 0.0 K/mm3 (0.0-0.1) 11/21/17 04:54 Metamyelocytes # 0.2 K/mm3 11/21/17 04:54 Myelocytes # 0.0 K/mm3 11/21/17 04:54 Promyelocytes # 0.0 K/mm3 11/21/17 04:54 Blast Cells # 0.0 K/mm3 11/21/17 04:54 WBC Morphology Not Reportable 11/21/17 04:54 Hypersegmented Neuts Not Reportable 11/21/17 04:54 Hyposegmented Neuts Not Reportable 11/21/17 04:54 Hypogranular Neuts Not Reportable 11/21/17 04:54 Smudge Cells Not Reportable 11/21/17 04:54 Toxic Granulation Not Reportable 11/21/17 04:54 Toxic Vacuolation Not Reportable 11/21/17 04:54 Dohle Bodies Not Reportable 11/21/17 04:54 Pelger-Huet Anomaly Not Reportable 11/21/17 04:54 [place] Rods Not Reportable 11/21/17 04:54 Platelet Estimate Appears normal 11/21/17 04:54 Clumped Platelets Not Reportable 11/21/17 04:54 Plt Clumps, EDTA Not Reportable 11/21/17 04:54 Large Platelets Not Reportable 11/21/17 04:54 Giant Platelets Not Reportable 11/21/17 04:54 Platelet Satelliting Not Reportable 11/21/17 04:54 Plt Morphology Comment Not Reportable 11/21/17 04:54 RBC Morphology Not Reportable 11/21/17 04:54 Dimorphic RBCs Not Reportable 11/21/17 04:54 Polychromasia Not Reportable 11/21/17 04:54 Hypochromasia Not Reportable 11/21/17 04:54 Poikilocytosis 1+ 11/21/17 04:54 Anisocytosis 1+ 11/21/17 04:54 Microcytosis Not Reportable 11/21/17 04:54 Macrocytosis Not Reportable 11/21/17 04:54 Spherocytes Not Reportable 11/21/17 04:54 Pappenheimer Bodies Not Reportable 11/21/17 04:54 Sickle Cells Not Reportable 11/21/17 04:54 Target Cells Rare 11/21/17 04:54 Tear Drop Cells Not Reportable 11/21/17 04:54 Ovalocytes 2+ 11/21/17 04:54 Helmet Cells Not Reportable 11/21/17 04:54 [place] Bodies Not Reportable 11/21/17 04:54 [place] Rings Not Reportable 11/21/17 04:54 Arias Cells Not Reportable 11/21/17 04:54 Bite Cells Not Reportable 11/21/17 04:54 Crenated Cell Not Reportable 11/21/17 04:54 Elliptocytes 1+ 11/21/17 04:54 Acanthocytes (Spur) Not Reportable 11/21/17 04:54 Rouleaux Not Reportable 11/21/17 04:54 Hemoglobin C Crystals Not Reportable 11/21/17 04:54 Schistocytes Not Reportable 11/21/17 04:54 Malaria parasites Not Reportable 11/21/17 04:54 Danny Bodies Not Reportable 11/21/17 04:54 Hem Pathologist Commnt No 11/21/17 04:54 Sodium 134 mmol/L (137-145) L 11/21/17 06:17 Potassium 4.5 mmol/L (3.6-5.0) 11/21/17 06:17 Chloride 94.5 mmol/L (98-107) L 11/21/17 06:17 Carbon Dioxide 32 mmol/L (22-30) H 11/21/17 06:17 Anion Gap 12 mmol/L 11/21/17 06:17 BUN 22 mg/dL (9-20) H 11/21/17 06:17 Creatinine 0.3 mg/dL (0.8-1.5) L 11/21/17 06:17 Estimated GFR > 60 ml/min 11/21/17 06:17 BUN/Creatinine Ratio 73 % 11/21/17 06:17 Glucose 135 mg/dL (75-100) H 11/21/17 06:17 Calcium 7.7 mg/dL (8.4-10.2) L 11/21/17 06:17
[2017-11-21] MEDS: ZESTRIL PO SCH ×2 (09:45→22:30)
[2017-11-21] MEDS: HALFPRIN EC PO SCH (09:46)
[2017-11-21] MEDS: NORVASC PO SCH (09:47)
[2017-11-21] MEDS: LASIX PO SCH (09:47)
[2017-11-21] MEDS: LEVAQUIN 500MG/100ML 500 MG/100 ML BAG IV SCH (09:47)
[2017-11-21] MEDS: MIRALAX 3350 PO SCH (09:47)
[2017-11-21] MEDS: LOPRESSOR PO SCH ×2 (09:56→22:30)
[2017-11-21] MEDS: FLONASE NS SCH (11:12)
[2017-11-21] MEDS: FLOMAX PO SCH (22:29)
[2017-11-22] MEDS: DOLOPHINE PO SCH ×3 (03:56→22:23)
[2017-11-22] MEDS: DUONEB *Not for PRN Use IH SCH ×4 (04:00→19:49)
[2017-11-22] MEDS: NEURONTIN PO SCH ×3 (05:17→22:23)
[2017-11-22] MEDS: HEPARIN SUB-Q SCH ×3 (05:18→22:25)
[2017-11-22] MEDS: PULMICORT IH SCH ×2 (08:13→19:49)
[2017-11-22] MEDS: HALFPRIN EC PO SCH (09:05)
[2017-11-22] MEDS: LEVAQUIN 500MG/100ML 500 MG/100 ML BAG IV SCH (09:06)
[2017-11-22] MEDS: LASIX PO SCH (09:06)
[2017-11-22] MEDS: MIRALAX 3350 PO SCH (09:06)
[2017-11-22] MEDS: ZESTRIL PO SCH ×2 (09:07→22:24)
[2017-11-22] MEDS: NORVASC PO SCH (09:09)
[2017-11-22] MEDS: LOPRESSOR PO SCH ×2 (09:09→22:24)
[2017-11-22] MEDS: FLONASE NS SCH (09:16)
--- NOTE | 2017-11-22 10:35 | Progress Note ---
Assessment and Plan Assessment and plan: Acute on chronic respiratory failure with hypoxia Patient oxygen saturation improved with 3LNC; currently SPO2 98%. No acute respiratory distress noted. Aggressive Nebulizers/Inhalers ABG when necessary Oxygen supplement Supportive care Acute COPD exacerbation Chest xray ordered Continue on Duoneb every 6 hours Started on IV steroid Solumedrol Oxygen as necessary S/P Partial wound dehiscence - left side of scrotum Managed by urology Wound care Levaquin 500mg#14 Leukocytosis Etiology secondary to steroids Systolic Congestive heart failure/pulmonary edema Recent Echocardiogram on 11/06/17 with Ef of 45-50% Cont Diuresis, beta blockers and ACEI/ARB Strict I&O's and daily weights Low-sodium/cardiac diet/fluid restriction Closely monitor electrolytes Cardiology evaluation Hyponatremia IV fluid that will correct it Closely monitor electrolytes Hypertensive urgency Continue home antihypertensive medications Closely monitor blood pressure Chronic anemia H&H stable for patient at this point; no blood transfusions needed Closely monitor H&H DVT prophylaxis Heparin Disposition transfer to SNF when bed available History Interval history: no new issues overnight. Pt. still with SOB with exertion Hospitalist Physical - Constitutional Vitals: Temp Pulse Resp BP Pulse Ox 97.7 F 73 18 138/68 97 11/22/17 08:00 11/22/17 09:09 11/22/17 08:14 11/22/17 09:09 11/22/17 08:15 General appearance: Present: no acute distress, well-nourished - EENT Eyes: Present: PERRL, EOM intact ENT: hearing intact, clear oral mucosa, dentition normal - Neck Neck: Present: supple, normal ROM - Respiratory Respiratory effort: normal Respiratory: bilateral: CTA - Cardiovascular Rhythm: regular Heart Sounds: Present: S1 & S2. Absent: gallop, rub - Extremities Extremities: no ischemia, No edema, Full ROM - Abdominal General gastrointestinal: soft, non-tender, non-distended, normal bowel sounds - Integumentary Integumentary: Present: clear, warm, dry - Neurologic Neurologic: CNII-XII intact, moves all extremities Results - Labs CBC & Chem 7: 11/21/17 04:54 11/21/17 06:17 Labs: Laboratory Last Values WBC 18.5 K/mm3 (4.5-11.0) H 11/21/17 04:54 RBC 3.43 M/mm3 (3.65-5.03) L 11/21/17 04:54 Hgb 9.2 gm/dl (11.8-15.2) L 11/21/17 04:54 Hct 28.0 % (35.5-45.6) L 11/21/17 04:54 MCV 82 fl (84-94) L 11/21/17 04:54 MCH 27 pg (28-32) L 11/21/17 04:54 MCHC 33 % (32-34) 11/21/17 04:54 RDW 17.0 % (13.2-15.2) H 11/21/17 04:54 Plt Count 201 K/mm3 (140-440) 11/21/17 04:54 Lymph % (Auto) 7.8 % (13.4-35.0) L 11/18/17 07:10 [place] % (Auto) 7.4 % (0.0-7.3) H 11/18/17 07:10 Eos % (Auto) 1.2 % (0.0-4.3) 11/18/17 07:10 Baso % (Auto) 0.2 % (0.0-1.8) 11/18/17 07:10 Lymph # 1.3 K/mm3 (1.2-5.4) 11/18/17 07:10 [place] # 1.2 K/mm3 (0.0-0.8) H 11/18/17 07:10 Eos # 0.2 K/mm3 (0.0-0.4) 11/18/17 07:10 Baso # 0.0 K/mm3 (0.0-0.1) 11/18/17 07:10 Add Manual Diff Complete 11/21/17 04:54 Total Counted 100 11/21/17 04:54 Seg Neutrophils % Archer[employer] Equipment Hay Sorter 11/21/17 04:54 Seg Neuts % (Manual) 99.0 % (40.0-70.0) H 11/21/17 04:54 Band Neutrophils % 0 % 11/21/17 04:54 Lymphocytes % (Manual) 0 % (13.4-35.0) L 11/21/17 04:54 Reactive Lymphs % (Man) 0 % 11/21/17 04:54 Monocytes % (Manual) 0 % (0.0-7.3) 11/21/17 04:54 Eosinophils % (Manual) 0 % (0.0-4.3) 11/21/17 04:54 Basophils % (Manual) 0 % (0.0-1.8) 11/21/17 04:54 Metamyelocytes % 1.0 % 11/21/17 04:54 Myelocytes % 0 % 11/21/17 04:54 Promyelocytes % 0 % 11/21/17 04:54 Blast Cells % 0 % 11/21/17 04:54 Nucleated RBC % 2.0 % (0.0-0.9) H 11/21/17 04:54 Seg Neutrophils # 13.5 K/mm3 (1.8-7.7) H 11/18/17 07:10 Seg Neutrophils # Man 18.3 K/mm3 (1.8-7.7) H 11/21/17 04:54 Band Neutrophils # 0.0 K/mm3 11/21/17 04:54 Lymphocytes # (Manual) 0.0 K/mm3 (1.2-5.4) L 11/21/17 04:54 Abs React Lymphs (Man) 0.0 K/mm3 11/21/17 04:54 Monocytes # (Manual) 0.0 K/mm3 (0.0-0.8) 11/21/17 04:54 Eosinophils # (Manual) 0.0 K/mm3 (0.0-0.4) 11/21/17 04:54 Basophils # (Manual) 0.0 K/mm3 (0.0-0.1) 11/21/17 04:54 Metamyelocytes # 0.2 K/mm3 11/21/17 04:54 Myelocytes # 0.0 K/mm3 11/21/17 04:54 Promyelocytes # 0.0 K/mm3 11/21/17 04:54 Blast Cells # 0.0 K/mm3 11/21/17 04:54 WBC Morphology Not Reportable 11/21/17 04:54 Hypersegmented Neuts Not Reportable 11/21/17 04:54 Hyposegmented Neuts Not Reportable 11/21/17 04:54 Hypogranular Neuts Not Reportable 11/21/17 04:54 Smudge Cells Not Reportable 11/21/17 04:54 Toxic Granulation Not Reportable 11/21/17 04:54 Toxic Vacuolation Not Reportable 11/21/17 04:54 Dohle Bodies Not Reportable 11/21/17 04:54 Pelger-Huet Anomaly Not Reportable 11/21/17 04:54 [place] Rods Not Reportable 11/21/17 04:54 Platelet Estimate Appears normal 11/21/17 04:54 Clumped Platelets Not Reportable 11/21/17 04:54 Plt Clumps, EDTA Not Reportable 11/21/17 04:54 Large Platelets Not Reportable 11/21/17 04:54 Giant Platelets Not Reportable 11/21/17 04:54 Platelet Satelliting Not Reportable 11/21/17 04:54 Plt Morphology Comment Not Reportable 11/21/17 04:54 RBC Morphology Not Reportable 11/21/17 04:54 Dimorphic RBCs Not Reportable 11/21/17 04:54 Polychromasia Not Reportable 11/21/17 04:54 Hypochromasia Not Reportable 11/21/17 04:54 Poikilocytosis 1+ 11/21/17 04:54 Anisocytosis 1+ 11/21/17 04:54 Microcytosis Not Reportable 11/21/17 04:54 Macrocytosis Not Reportable 11/21/17 04:54 Spherocytes Not Reportable 11/21/17 04:54 Pappenheimer Bodies Not Reportable 11/21/17 04:54 Sickle Cells Not Reportable 11/21/17 04:54 Target Cells Rare 11/21/17 04:54 Tear Drop Cells Not Reportable 11/21/17 04:54 Ovalocytes 2+ 11/21/17 04:54 Helmet Cells Not Reportable 11/21/17 04:54 [place] Bodies Not Reportable 11/21/17 04:54 [place] Rings Not Reportable 11/21/17 04:54 Arias Cells Not Reportable 11/21/17 04:54 Bite Cells Not Reportable 11/21/17 04:54 Crenated Cell Not Reportable 11/21/17 04:54 Elliptocytes 1+ 11/21/17 04:54 Acanthocytes (Spur) Not Reportable 11/21/17 04:54 Rouleaux Not Reportable 11/21/17 04:54 Hemoglobin C Crystals Not Reportable 11/21/17 04:54 Schistocytes Not Reportable 11/21/17 04:54 Malaria parasites Not Reportable 11/21/17 04:54 Danny Bodies Not Reportable 11/21/17 04:54 Hem Pathologist Commnt No 11/21/17 04:54 Sodium 134 mmol/L (137-145) L 11/21/17 06:17 Potassium 4.5 mmol/L (3.6-5.0) 11/21/17 06:17 Chloride 94.5 mmol/L (98-107) L 11/21/17 06:17 Carbon Dioxide 32 mmol/L (22-30) H 11/21/17 06:17 Anion Gap 12 mmol/L 11/21/17 06:17 BUN 22 mg/dL (9-20) H 11/21/17 06:17 Creatinine 0.3 mg/dL (0.8-1.5) L 11/21/17 06:17 Estimated GFR > 60 ml/min 11/21/17 06:17 BUN/Creatinine Ratio 73 % 11/21/17 06:17 Glucose 135 mg/dL (75-100) H 11/21/17 06:17 Calcium 7.7 mg/dL (8.4-10.2) L 11/21/17 06:17
--- NOTE | 2017-11-22 12:31 | Progress Note ---
Assessment and Plan doing well opk for d/c when cleared medically d/c niall in am Subjective Date of service: 11/22/17 Principal diagnosis: Acute resp failure Objective - Constitutional Vitals: Vital Signs - 12hr 11/22/17 11/22/17 11/22/17 04:00 04:15 04:54 Temperature 97.7 F Pulse Rate 95 H Pulse Rate [ 75 84 Anterior Bilateral Throughout] Respiratory 20 Rate Respiratory 15 16 Rate [Anterior Bilateral Throughout] Blood Pressure Blood Pressure [Right] O2 Sat by Pulse 93 Oximetry 11/22/17 11/22/17 11/22/17 07:33 08:00 08:14 Temperature 97.7 F 97.7 F Pulse Rate 72 92 H Pulse Rate [ 72 73 Anterior Bilateral Throughout] Respiratory 20 20 Rate Respiratory 18 18 Rate [Anterior Bilateral Throughout] Blood Pressure 138/68 Blood Pressure 129/66 [Right] O2 Sat by Pulse 95 Oximetry 11/22/17 11/22/17 11/22/17 08:15 09:07 09:09 Temperature Pulse Rate 73 73 Pulse Rate [ Anterior Bilateral Throughout] Respiratory Rate Respiratory Rate [Anterior Bilateral Throughout] Blood Pressure 138/68 138/68 Blood Pressure [Right] O2 Sat by Pulse 97 Oximetry 11/22/17 10:00 Temperature Pulse Rate Pulse Rate [ Anterior Bilateral Throughout] Respiratory 18 Rate Respiratory Rate [Anterior Bilateral Throughout] Blood Pressure Blood Pressure [Right] O2 Sat by Pulse Oximetry General appearance: Present: no acute distress - Neck Neck: supple - Respiratory Respiratory effort: normal - Gastrointestinal General gastrointestinal: Present: non-tender - Genitourinary Male genitourinary: asymmetrical (healing and granulating ) - Labs CBC & Chem 7: 11/21/17 04:54 11/21/17 06:17
[2017-11-22] MEDS: NACL 0.45% 1000 ML 1,000 ML IV SCH (14:50)
[2017-11-22] MEDS: TESSALON PERLES PO PRN (14:51)
[2017-11-22] MEDS: FLOMAX PO SCH (22:23)
[2017-11-23] MEDS: DUONEB *Not for PRN Use IH SCH ×4 (02:43→19:45)
[2017-11-23] MEDS: NEURONTIN PO SCH ×3 (06:06→21:41)
[2017-11-23] MEDS: DOLOPHINE PO SCH ×3 (06:06→20:30)
[2017-11-23] MEDS: HEPARIN SUB-Q SCH ×3 (06:06→21:41)
[2017-11-23] MEDS: PULMICORT IH SCH ×2 (07:08→19:45)
[2017-11-23] MEDS: LASIX PO SCH ×2 (08:55→10:27)
[2017-11-23] MEDS: HALFPRIN EC PO SCH ×2 (08:55→10:27)
[2017-11-23] MEDS: LEVAQUIN PO SCH ×2 (08:56→10:27)
[2017-11-23] MEDS: LOPRESSOR PO SCH ×3 (08:56→21:43)
[2017-11-23] MEDS: MIRALAX 3350 PO SCH ×2 (08:56→10:28)
[2017-11-23] MEDS: ZESTRIL PO SCH ×2 (10:28→21:43)
[2017-11-23] MEDS: NORVASC PO SCH (10:28)
[2017-11-23] MEDS: FLONASE NS SCH (10:33)
--- NOTE | 2017-11-23 16:37 | Progress Note ---
<LEXX GOLDEN - Last Filed: 11/23/17 16:31> Assessment and Plan Assessment and plan: Acute on chronic respiratory failure with hypoxia Patient oxygen saturation improved with 3LNC; currently SPO2 98%. No acute respiratory distress noted. Aggressive Nebulizers/Inhalers ABG when necessary Oxygen supplement Supportive care Acute COPD exacerbation Continue on Duoneb every 6 hours Started on IV steroid Solumedrol Oxygen as necessary S/P Partial wound dehiscence - left side of scrotum Managed by urology Wound care Levaquin 500mg#14 Leukocytosis Etiology secondary to steroids Systolic Congestive heart failure/pulmonary edema Recent Echocardiogram on 11/06/17 with Ef of 45-50% Cont Diuresis, beta blockers and ACEI/ARB Strict I&O's and daily weights Low-sodium/cardiac diet/fluid restriction Closely monitor electrolytes Cardiology evaluation Hyponatremia IV fluid that will correct it Closely monitor electrolytes Hypertensive urgency Resolved Continue home antihypertensive medications Closely monitor blood pressure Chronic anemia H&H stable for patient at this point; no blood transfusions needed Closely monitor H&H DVT prophylaxis Heparin Disposition transfer to SNF when bed available History Interval history: Patient seen and examined. No new events overnight. Patient complains of pain from correction of hydrocele. Patient denies chest pain, shortness of breath, nausea and vomiting. Nursing notes and labs reviewed. Hospitalist Physical - Constitutional Vitals: Temp Pulse Resp BP Pulse Ox 98.0 F 82 20 139/69 89 11/23/17 15:02 11/23/17 15:02 11/23/17 15:02 11/23/17 15:02 11/23/17 15:02 General appearance: Present: no acute distress - EENT Eyes: Present: PERRL, EOM intact ENT: hearing intact, clear oral mucosa - Neck Neck: Present: supple, normal ROM - Respiratory Respiratory effort: normal Respiratory: bilateral: CTA - Cardiovascular Rhythm: regular Heart Sounds: Present: S1 & S2 - Extremities Extremities: no ischemia, No edema Peripheral Pulses: within normal limits - Abdominal General gastrointestinal: soft, non-tender - Integumentary Integumentary: Present: clear, warm, dry - Psychiatric Psychiatric: appropriate mood/affect, cooperative - Neurologic Neurologic: CNII-XII intact, moves all extremities - Allied Health Allied health notes reviewed: nursing Results - Labs CBC & Chem 7: 11/21/17 04:54 11/21/17 06:17 Labs: Laboratory Last Values WBC 18.5 K/mm3 (4.5-11.0) H 11/21/17 04:54 RBC 3.43 M/mm3 (3.65-5.03) L 11/21/17 04:54 Hgb 9.2 gm/dl (11.8-15.2) L 11/21/17 04:54 Hct 28.0 % (35.5-45.6) L 11/21/17 04:54 MCV 82 fl (84-94) L 11/21/17 04:54 MCH 27 pg (28-32) L 11/21/17 04:54 MCHC 33 % (32-34) 11/21/17 04:54 RDW 17.0 % (13.2-15.2) H 11/21/17 04:54 Plt Count 201 K/mm3 (140-440) 11/21/17 04:54 Lymph % (Auto) 7.8 % (13.4-35.0) L 11/18/17 07:10 [place] % (Auto) 7.4 % (0.0-7.3) H 11/18/17 07:10 Eos % (Auto) 1.2 % (0.0-4.3) 11/18/17 07:10 Baso % (Auto) 0.2 % (0.0-1.8) 11/18/17 07:10 Lymph # 1.3 K/mm3 (1.2-5.4) 11/18/17 07:10 [place] # 1.2 K/mm3 (0.0-0.8) H 11/18/17 07:10 Eos # 0.2 K/mm3 (0.0-0.4) 11/18/17 07:10 Baso # 0.0 K/mm3 (0.0-0.1) 11/18/17 07:10 Add Manual Diff Complete 11/21/17 04:54 Total Counted 100 11/21/17 04:54 Seg Neutrophils % Marketing Information Analyst 11/21/17 04:54 Seg Neuts % (Manual) 99.0 % (40.0-70.0) H 11/21/17 04:54 Band Neutrophils % 0 % 11/21/17 04:54 Lymphocytes % (Manual) 0 % (13.4-35.0) L 11/21/17 04:54 Reactive Lymphs % (Man) 0 % 11/21/17 04:54 Monocytes % (Manual) 0 % (0.0-7.3) 11/21/17 04:54 Eosinophils % (Manual) 0 % (0.0-4.3) 11/21/17 04:54 Basophils % (Manual) 0 % (0.0-1.8) 11/21/17 04:54 Metamyelocytes % 1.0 % 11/21/17 04:54 Myelocytes % 0 % 11/21/17 04:54 Promyelocytes % 0 % 11/21/17 04:54 Blast Cells % 0 % 11/21/17 04:54 Nucleated RBC % 2.0 % (0.0-0.9) H 11/21/17 04:54 Seg Neutrophils # 13.5 K/mm3 (1.8-7.7) H 11/18/17 07:10 Seg Neutrophils # Man 18.3 K/mm3 (1.8-7.7) H 11/21/17 04:54 Band Neutrophils # 0.0 K/mm3 11/21/17 04:54 Lymphocytes # (Manual) 0.0 K/mm3 (1.2-5.4) L 11/21/17 04:54 Abs React Lymphs (Man) 0.0 K/mm3 11/21/17 04:54 Monocytes # (Manual) 0.0 K/mm3 (0.0-0.8) 11/21/17 04:54 Eosinophils # (Manual) 0.0 K/mm3 (0.0-0.4) 11/21/17 04:54 Basophils # (Manual) 0.0 K/mm3 (0.0-0.1) 11/21/17 04:54 Metamyelocytes # 0.2 K/mm3 11/21/17 04:54 Myelocytes # 0.0 K/mm3 11/21/17 04:54 Promyelocytes # 0.0 K/mm3 11/21/17 04:54 Blast Cells # 0.0 K/mm3 11/21/17 04:54 WBC Morphology Not Reportable 11/21/17 04:54 Hypersegmented Neuts Not Reportable 11/21/17 04:54 Hyposegmented Neuts Not Reportable 11/21/17 04:54 Hypogranular Neuts Not Reportable 11/21/17 04:54 Smudge Cells Not Reportable 11/21/17 04:54 Toxic Granulation Not Reportable 11/21/17 04:54 Toxic Vacuolation Not Reportable 11/21/17 04:54 Dohle Bodies Not Reportable 11/21/17 04:54 Pelger-Huet Anomaly Not Reportable 11/21/17 04:54 Tanmay Rods Not Reportable 11/21/17 04:54 Platelet Estimate Appears normal 11/21/17 04:54 Clumped Platelets Not Reportable 11/21/17 04:54 Plt Clumps, EDTA Not Reportable 11/21/17 04:54 Large Platelets Not Reportable 11/21/17 04:54 Giant Platelets Not Reportable 11/21/17 04:54 Platelet Satelliting Not Reportable 11/21/17 04:54 Plt Morphology Comment Not Reportable 11/21/17 04:54 RBC Morphology Not Reportable 11/21/17 04:54 Dimorphic RBCs Not Reportable 11/21/17 04:54 Polychromasia Not Reportable 11/21/17 04:54 Hypochromasia Not Reportable 11/21/17 04:54 Poikilocytosis 1+ 11/21/17 04:54 Anisocytosis 1+ 11/21/17 04:54 Microcytosis Not Reportable 11/21/17 04:54 Macrocytosis Not Reportable 11/21/17 04:54 Spherocytes Not Reportable 11/21/17 04:54 Pappenheimer Bodies Not Reportable 11/21/17 04:54 Sickle Cells Not Reportable 11/21/17 04:54 Target Cells Rare 11/21/17 04:54 Tear Drop Cells Not Reportable 11/21/17 04:54 Ovalocytes 2+ 11/21/17 04:54 Helmet Cells Not Reportable 11/21/17 04:54 [place] Bodies Not Reportable 11/21/17 04:54 [place] Rings Not Reportable 11/21/17 04:54 Arias Cells Not Reportable 11/21/17 04:54 Bite Cells Not Reportable 11/21/17 04:54 Crenated Cell Not Reportable 11/21/17 04:54 Elliptocytes 1+ 11/21/17 04:54 Acanthocytes (Spur) Not Reportable 11/21/17 04:54 Rouleaux Not Reportable 11/21/17 04:54 Hemoglobin C Crystals Not Reportable 11/21/17 04:54 Schistocytes Not Reportable 11/21/17 04:54 Malaria parasites Not Reportable 11/21/17 04:54 Danny Bodies Not Reportable 11/21/17 04:54 Hem Pathologist Commnt No 11/21/17 04:54 Sodium 134 mmol/L (137-145) L 11/21/17 06:17 Potassium 4.5 mmol/L (3.6-5.0) 11/21/17 06:17 Chloride 94.5 mmol/L (98-107) L 11/21/17 06:17 Carbon Dioxide 32 mmol/L (22-30) H 11/21/17 06:17 Anion Gap 12 mmol/L 11/21/17 06:17 BUN 22 mg/dL (9-20) H 11/21/17 06:17 Creatinine 0.3 mg/dL (0.8-1.5) L 11/21/17 06:17 Estimated GFR > 60 ml/min 11/21/17 06:17 BUN/Creatinine Ratio 73 % 11/21/17 06:17 Glucose 135 mg/dL (75-100) H 11/21/17 06:17 Calcium 7.7 mg/dL (8.4-10.2) L 11/21/17 06:17 <CALIXTO BOWSER R - Last Filed: 11/25/17 10:56> Assessment and Plan Assessment and plan: I saw and evaluated the patient. I agree with the findings and the plan of care as documented in the Nurse Practitioner's~note, with the following corrections and additions. Hospitalist Physical - Constitutional Vitals: Temp Pulse Resp BP Pulse Ox 98.5 F 84 20 127/68 92 11/25/17 09:00 11/25/17 10:05 11/25/17 09:03 11/25/17 10:05 11/25/17 09:00 Results - Labs CBC & Chem 7: 11/21/17 04:54 11/21/17 06:17 Labs: Laboratory Last Values WBC 18.5 K/mm3 (4.5-11.0) H 11/21/17 04:54 RBC 3.43 M/mm3 (3.65-5.03) L 11/21/17 04:54 Hgb 9.2 gm/dl (11.8-15.2) L 11/21/17 04:54 Hct 28.0 % (35.5-45.6) L 11/21/17 04:54 MCV 82 fl (84-94) L 11/21/17 04:54 MCH 27 pg (28-32) L 11/21/17 04:54 MCHC 33 % (32-34) 11/21/17 04:54 RDW 17.0 % (13.2-15.2) H 11/21/17 04:54 Plt Count 201 K/mm3 (140-440) 11/21/17 04:54 Lymph % (Auto) 7.8 % (13.4-35.0) L 11/18/17 07:10 Ross % (Auto) 7.4 % (0.0-7.3) H 11/18/17 07:10 Eos % (Auto) 1.2 % (0.0-4.3) 11/18/17 07:10 Baso % (Auto) 0.2 % (0.0-1.8) 11/18/17 07:10 Lymph # 1.3 K/mm3 (1.2-5.4) 11/18/17 07:10 [place] # 1.2 K/mm3 (0.0-0.8) H 11/18/17 07:10 Eos # 0.2 K/mm3 (0.0-0.4) 11/18/17 07:10 Baso # 0.0 K/mm3 (0.0-0.1) 11/18/17 07:10 Add Manual Diff Complete 11/21/17 04:54 Total Counted 100 11/21/17 04:54 Seg Neutrophils % Marketing Information Analyst 11/21/17 04:54 Seg Neuts % (Manual) 99.0 % (40.0-70.0) H 11/21/17 04:54 Band Neutrophils % 0 % 11/21/17 04:54 Lymphocytes % (Manual) 0 % (13.4-35.0) L 11/21/17 04:54 Reactive Lymphs % (Man) 0 % 11/21/17 04:54 Monocytes % (Manual) 0 % (0.0-7.3) 11/21/17 04:54 Eosinophils % (Manual) 0 % (0.0-4.3) 11/21/17 04:54 Basophils % (Manual) 0 % (0.0-1.8) 11/21/17 04:54 Metamyelocytes % 1.0 % 11/21/17 04:54 Myelocytes % 0 % 11/21/17 04:54 Promyelocytes % 0 % 11/21/17 04:54 Blast Cells % 0 % 11/21/17 04:54 Nucleated RBC % 2.0 % (0.0-0.9) H 11/21/17 04:54 Seg Neutrophils # 13.5 K/mm3 (1.8-7.7) H 11/18/17 07:10 Seg Neutrophils # Man 18.3 K/mm3 (1.8-7.7) H 11/21/17 04:54 Band Neutrophils # 0.0 K/mm3 11/21/17 04:54 Lymphocytes # (Manual) 0.0 K/mm3 (1.2-5.4) L 11/21/17 04:54 Abs React Lymphs (Man) 0.0 K/mm3 11/21/17 04:54 Monocytes # (Manual) 0.0 K/mm3 (0.0-0.8) 11/21/17 04:54 Eosinophils # (Manual) 0.0 K/mm3 (0.0-0.4) 11/21/17 04:54 Basophils # (Manual) 0.0 K/mm3 (0.0-0.1) 11/21/17 04:54 Metamyelocytes # 0.2 K/mm3 11/21/17 04:54 Myelocytes # 0.0 K/mm3 11/21/17 04:54 Promyelocytes # 0.0 K/mm3 11/21/17 04:54 Blast Cells # 0.0 K/mm3 11/21/17 04:54 WBC Morphology Not Reportable 11/21/17 04:54 Hypersegmented Neuts Not Reportable 11/21/17 04:54 Hyposegmented Neuts Not Reportable 11/21/17 04:54 Hypogranular Neuts Not Reportable 11/21/17 04:54 Smudge Cells Not Reportable 11/21/17 04:54 Toxic Granulation Not Reportable 11/21/17 04:54 Toxic Vacuolation Not Reportable 11/21/17 04:54 Dohle Bodies Not Reportable 11/21/17 04:54 Pelger-Huet Anomaly Not Reportable 11/21/17 04:54 [place] Rods Not Reportable 11/21/17 04:54 Platelet Estimate Appears normal 11/21/17 04:54 Clumped Platelets Not Reportable 11/21/17 04:54 Plt Clumps, EDTA Not Reportable 11/21/17 04:54 Large Platelets Not Reportable 11/21/17 04:54 Giant Platelets Not Reportable 11/21/17 04:54 Platelet Satelliting Not Reportable 11/21/17 04:54 Plt Morphology Comment Not Reportable 11/21/17 04:54 RBC Morphology Not Reportable 11/21/17 04:54 Dimorphic RBCs Not Reportable 11/21/17 04:54 Polychromasia Not Reportable 11/21/17 04:54 Hypochromasia Not Reportable 11/21/17 04:54 Poikilocytosis 1+ 11/21/17 04:54 Anisocytosis 1+ 11/21/17 04:54 Microcytosis Not Reportable 11/21/17 04:54 Macrocytosis Not Reportable 11/21/17 04:54 Spherocytes Not Reportable 11/21/17 04:54 Pappenheimer Bodies Not Reportable 11/21/17 04:54 Sickle Cells Not Reportable 11/21/17 04:54 Target Cells Rare 11/21/17 04:54 Tear Drop Cells Not Reportable 11/21/17 04:54 Ovalocytes 2+ 11/21/17 04:54 Helmet Cells Not Reportable 11/21/17 04:54 [place]-Rangely Bodies Not Reportable 11/21/17 04:54 [place] Rings Not Reportable 11/21/17 04:54 [place] Cells Not Reportable 11/21/17 04:54 Bite Cells Not Reportable 11/21/17 04:54 Crenated Cell Not Reportable 11/21/17 04:54 Elliptocytes 1+ 11/21/17 04:54 Acanthocytes (Spur) Not Reportable 11/21/17 04:54 Rouleaux Not Reportable 11/21/17 04:54 Hemoglobin C Crystals Not Reportable 11/21/17 04:54 Schistocytes Not Reportable 11/21/17 04:54 Malaria parasites Not Reportable 11/21/17 04:54 Danny Bodies Not Reportable 11/21/17 04:54 Hem Pathologist Commnt No 11/21/17 04:54 Sodium 134 mmol/L (137-145) L 11/21/17 06:17 Potassium 4.5 mmol/L (3.6-5.0) 11/21/17 06:17 Chloride 94.5 mmol/L (98-107) L 11/21/17 06:17 Carbon Dioxide 32 mmol/L (22-30) H 11/21/17 06:17 Anion Gap 12 mmol/L 11/21/17 06:17 BUN 22 mg/dL (9-20) H 11/21/17 06:17 Creatinine 0.3 mg/dL (0.8-1.5) L 11/21/17 06:17 Estimated GFR > 60 ml/min 11/21/17 06:17 BUN/Creatinine Ratio 73 % 11/21/17 06:17 Glucose 135 mg/dL (75-100) H 11/21/17 06:17 Calcium 7.7 mg/dL (8.4-10.2) L 11/21/17 06:17
[2017-11-23] MEDS: FLOMAX PO SCH (21:41)
[2017-11-24] MEDS: DOLOPHINE PO SCH ×2 (04:17→20:00)
[2017-11-24] MEDS: HEPARIN SUB-Q SCH ×2 (06:14→22:10)
[2017-11-24] MEDS: NEURONTIN PO SCH ×3 (06:15→22:10)
[2017-11-24] MEDS: DUONEB *Not for PRN Use IH SCH ×4 (07:31→19:34)
[2017-11-24] MEDS: PULMICORT IH SCH ×2 (07:36→19:34)
[2017-11-24] MEDS: FLONASE NS SCH (10:13)
[2017-11-24] MEDS: LEVAQUIN PO SCH (10:15)
[2017-11-24] MEDS: MIRALAX 3350 PO SCH (10:15)
[2017-11-24] MEDS: LOPRESSOR PO SCH (10:15)
[2017-11-24] MEDS: HALFPRIN EC PO SCH (10:15)
[2017-11-24] MEDS: LASIX PO SCH (10:15)
[2017-11-24] MEDS: ZESTRIL PO SCH (10:16)
[2017-11-24] MEDS: NORVASC PO SCH (10:16)
--- NOTE | 2017-11-24 12:29 | Discharge Summary ---
Providers - Providers Date of Admission: 11/18/17 05:34 Date of discharge: 11/25/17 Attending physician: CALIXTO BOWSER 11/18/17 09:10 Consult to Physician [CONS] Routine Consulting Provider: YAMILKA HAYWARD Reason For Exam: medical management - COPD, CHF Place consult to:: nicholas Notified:: yes 11/18/17 09:14 Consult to Wound/ET Nurse [CONS] Routine Reason For Exam: wound eval 11/22/17 11:28 Physical Therapy Evaluation and Treat [CONS] Routine Comment: Reason For Exam: Debility Primary care physician: COMFORT ELDER Hospitalization Pertinent studies: Chest x-ray revealed interval clearing of right lung base with well-visualized hemidiaphragm as well as left lung base opacity/effusion improvement as compared to chest x-ray dated 11/05/2017. No CHF noted Hospital course: Patient is a 68 years old male with past medical history of hypertension,Asthma, congestive heart failure, and COPD, who was consulted form neurology to us for medical management of hypertension, COPD and CHF. Patient has had partial wound dehiscence - left side of scrotum for Hydrocele ;this procedure occurred on 11/17/2017. Patient tolerated the procedure well and postoperatively, he is stable. Patient denies fever, chills chest pain, headache. Patient was treated with antibiotics, bronchodilators, steroids, analgesics, antihypertensives and resume home medications. Patient was treated with heparin for DVT prophylaxis. Patient is clinically stable. Discharge diagnoses Acute on chronic respiratory failure with hypoxia Acute COPD exacerbation Leukocytosis Systolic congestive heart failure/pulmonary edema Status post partial wound dehiscence Hyponatremia Hypertensive urgency Chronic anemia DVT prophylaxis Disposition: DC/[place]-03 SNF W [facility] Core Measure Documentation - Palliative Care Palliative Care/ Comfort Measures: Not Applicable - Core Measures Any of the following diagnoses?: none Exam - Constitutional Vitals: Temp Pulse Resp BP Pulse Ox 98.8 F 71 20 135/69 92 11/24/17 08:06 11/24/17 10:16 11/24/17 08:06 11/24/17 10:16 11/24/17 08:06 General appearance: Present: no acute distress, well-nourished - EENT Eyes: Present: PERRL ENT: hearing intact, clear oral mucosa - Neck Neck: Present: supple, normal ROM - Respiratory Respiratory effort: normal Respiratory: bilateral: CTA - Cardiovascular Heart Sounds: Present: S1 & S2. Absent: rub, click - Extremities Extremities: pulses symmetrical, No edema Peripheral Pulses: within normal limits - Abdominal General gastrointestinal: Present: soft, non-tender Male genitourinary: Present: deferred - Rectal Rectal Exam: deferred - Integumentary Integumentary: Present: clear, warm, dry - Musculoskeletal Musculoskeletal: gait normal, strength equal bilaterally - Psychiatric Psychiatric: appropriate mood/affect, intact judgment & insight - Neurologic Neurologic: CNII-XII intact, moves all extremities - Allied Health Allied health notes reviewed: nursing Plan Activity: advance as tolerated, fall precautions Weight Bearing Status: Weight Bear as Tolerated Diet: low fat, low cholesterol, low salt Follow up with: COMFORT ELDER MD [Primary Care Provider] - 7 Days
[2017-11-25] MEDS: LOPRESSOR PO SCH ×2 (01:36→10:05)
[2017-11-25] MEDS: ZESTRIL PO SCH ×2 (01:37→10:04)
[2017-11-25] MEDS: FLOMAX PO SCH (01:40)
[2017-11-25] MEDS: DUONEB *Not for PRN Use IH SCH ×4 (01:53→19:09)
--- NOTE | 2017-11-25 08:09 | Progress Note ---
Assessment and Plan Assessment and plan: Acute on chronic respiratory failure with hypoxia Patient oxygen saturation improved with 3LNC; currently SPO2 98%. No acute respiratory distress noted. Aggressive Nebulizers/Inhalers ABG when necessary Oxygen supplement Supportive care Acute COPD exacerbation Continue on Duoneb every 6 hours Started on IV steroid Solumedrol Oxygen as necessary S/P Partial wound dehiscence - left side of scrotum Managed by urology Wound care Levaquin 500mg#14 Leukocytosis Etiology secondary to steroids Systolic Congestive heart failure/pulmonary edema Recent Echocardiogram on 11/06/17 with Ef of 45-50% Cont Diuresis, beta blockers and ACEI/ARB Strict I&O's and daily weights Low-sodium/cardiac diet/fluid restriction Closely monitor electrolytes Cardiology evaluation Hyponatremia IV fluid that will correct it Closely monitor electrolytes Hypertensive urgency Resolved Continue home antihypertensive medications Closely monitor blood pressure Chronic anemia H&H stable for patient at this point; no blood transfusions needed Closely monitor H&H DVT prophylaxis Heparin Disposition transfer to SNF when bed available History Interval history: Patient seen and examined. No new events overnight. Patient continues to complain of pain from correction of hydrocele. Patient denies chest pain, shortness of breath, nausea and vomiting. Nursing notes and labs reviewed. Hospitalist Physical - Constitutional Vitals: Temp Pulse Resp BP Pulse Ox 97.5 F L 86 18 123/67 94 11/25/17 04:19 11/25/17 04:19 11/25/17 04:19 11/25/17 04:19 11/25/17 04:19 General appearance: Present: no acute distress, well-nourished - EENT Eyes: Present: PERRL, EOM intact ENT: hearing intact, clear oral mucosa - Neck Neck: Present: supple, normal ROM - Respiratory Respiratory effort: normal Respiratory: bilateral: CTA - Cardiovascular Rhythm: regular Heart Sounds: Present: S1 & S2 - Extremities Extremities: no ischemia, No edema Peripheral Pulses: within normal limits - Abdominal General gastrointestinal: soft, non-tender - Integumentary Integumentary: Present: clear, warm, dry - Psychiatric Psychiatric: appropriate mood/affect, cooperative - Neurologic Neurologic: CNII-XII intact, moves all extremities - Allied Health Allied health notes reviewed: nursing Results - Labs CBC & Chem 7: 11/21/17 04:54 11/21/17 06:17 Labs: Laboratory Last Values WBC 18.5 K/mm3 (4.5-11.0) H 11/21/17 04:54 RBC 3.43 M/mm3 (3.65-5.03) L 11/21/17 04:54 Hgb 9.2 gm/dl (11.8-15.2) L 11/21/17 04:54 Hct 28.0 % (35.5-45.6) L 11/21/17 04:54 MCV 82 fl (84-94) L 11/21/17 04:54 MCH 27 pg (28-32) L 11/21/17 04:54 MCHC 33 % (32-34) 11/21/17 04:54 RDW 17.0 % (13.2-15.2) H 11/21/17 04:54 Plt Count 201 K/mm3 (140-440) 11/21/17 04:54 Lymph % (Auto) 7.8 % (13.4-35.0) L 11/18/17 07:10 [place] % (Auto) 7.4 % (0.0-7.3) H 11/18/17 07:10 Eos % (Auto) 1.2 % (0.0-4.3) 11/18/17 07:10 Baso % (Auto) 0.2 % (0.0-1.8) 11/18/17 07:10 Lymph # 1.3 K/mm3 (1.2-5.4) 11/18/17 07:10 [place] # 1.2 K/mm3 (0.0-0.8) H 11/18/17 07:10 Eos # 0.2 K/mm3 (0.0-0.4) 11/18/17 07:10 Baso # 0.0 K/mm3 (0.0-0.1) 11/18/17 07:10 Add Manual Diff Complete 11/21/17 04:54 Total Counted 100 11/21/17 04:54 Seg Neutrophils % Commercial Real Estate Attorney 11/21/17 04:54 Seg Neuts % (Manual) 99.0 % (40.0-70.0) H 11/21/17 04:54 Band Neutrophils % 0 % 11/21/17 04:54 Lymphocytes % (Manual) 0 % (13.4-35.0) L 11/21/17 04:54 Reactive Lymphs % (Man) 0 % 11/21/17 04:54 Monocytes % (Manual) 0 % (0.0-7.3) 11/21/17 04:54 Eosinophils % (Manual) 0 % (0.0-4.3) 11/21/17 04:54 Basophils % (Manual) 0 % (0.0-1.8) 11/21/17 04:54 Metamyelocytes % 1.0 % 11/21/17 04:54 Myelocytes % 0 % 11/21/17 04:54 Promyelocytes % 0 % 11/21/17 04:54 Blast Cells % 0 % 11/21/17 04:54 Nucleated RBC % 2.0 % (0.0-0.9) H 11/21/17 04:54 Seg Neutrophils # 13.5 K/mm3 (1.8-7.7) H 11/18/17 07:10 Seg Neutrophils # Man 18.3 K/mm3 (1.8-7.7) H 11/21/17 04:54 Band Neutrophils # 0.0 K/mm3 11/21/17 04:54 Lymphocytes # (Manual) 0.0 K/mm3 (1.2-5.4) L 11/21/17 04:54 Abs React Lymphs (Man) 0.0 K/mm3 11/21/17 04:54 Monocytes # (Manual) 0.0 K/mm3 (0.0-0.8) 11/21/17 04:54 Eosinophils # (Manual) 0.0 K/mm3 (0.0-0.4) 11/21/17 04:54 Basophils # (Manual) 0.0 K/mm3 (0.0-0.1) 11/21/17 04:54 Metamyelocytes # 0.2 K/mm3 11/21/17 04:54 Myelocytes # 0.0 K/mm3 11/21/17 04:54 Promyelocytes # 0.0 K/mm3 11/21/17 04:54 Blast Cells # 0.0 K/mm3 11/21/17 04:54 WBC Morphology Not Reportable 11/21/17 04:54 Hypersegmented Neuts Not Reportable 11/21/17 04:54 Hyposegmented Neuts Not Reportable 11/21/17 04:54 Hypogranular Neuts Not Reportable 11/21/17 04:54 Smudge Cells Not Reportable 11/21/17 04:54 Toxic Granulation Not Reportable 11/21/17 04:54 Toxic Vacuolation Not Reportable 11/21/17 04:54 Dohle Bodies Not Reportable 11/21/17 04:54 Pelger-Huet Anomaly Not Reportable 11/21/17 04:54 [place] Rods Not Reportable 11/21/17 04:54 Platelet Estimate Appears normal 11/21/17 04:54 Clumped Platelets Not Reportable 11/21/17 04:54 Plt Clumps, EDTA Not Reportable 11/21/17 04:54 Large Platelets Not Reportable 11/21/17 04:54 Giant Platelets Not Reportable 11/21/17 04:54 Platelet Satelliting Not Reportable 11/21/17 04:54 Plt Morphology Comment Not Reportable 11/21/17 04:54 RBC Morphology Not Reportable 11/21/17 04:54 Dimorphic RBCs Not Reportable 11/21/17 04:54 Polychromasia Not Reportable 11/21/17 04:54 Hypochromasia Not Reportable 11/21/17 04:54 Poikilocytosis 1+ 11/21/17 04:54 Anisocytosis 1+ 11/21/17 04:54 Microcytosis Not Reportable 11/21/17 04:54 Macrocytosis Not Reportable 11/21/17 04:54 Spherocytes Not Reportable 11/21/17 04:54 Pappenheimer Bodies Not Reportable 11/21/17 04:54 Sickle Cells Not Reportable 11/21/17 04:54 Target Cells Rare 11/21/17 04:54 Tear Drop Cells Not Reportable 11/21/17 04:54 Ovalocytes 2+ 11/21/17 04:54 Helmet Cells Not Reportable 11/21/17 04:54 [place] Bodies Not Reportable 11/21/17 04:54 [place] Rings Not Reportable 11/21/17 04:54 Arias Cells Not Reportable 11/21/17 04:54 Bite Cells Not Reportable 11/21/17 04:54 Crenated Cell Not Reportable 11/21/17 04:54 Elliptocytes 1+ 11/21/17 04:54 Acanthocytes (Spur) Not Reportable 11/21/17 04:54 Rouleaux Not Reportable 11/21/17 04:54 Hemoglobin C Crystals Not Reportable 11/21/17 04:54 Schistocytes Not Reportable 11/21/17 04:54 Malaria parasites Not Reportable 11/21/17 04:54 Danny Bodies Not Reportable 11/21/17 04:54 Hem Pathologist Commnt No 11/21/17 04:54 Sodium 134 mmol/L (137-145) L 11/21/17 06:17 Potassium 4.5 mmol/L (3.6-5.0) 11/21/17 06:17 Chloride 94.5 mmol/L (98-107) L 11/21/17 06:17 Carbon Dioxide 32 mmol/L (22-30) H 11/21/17 06:17 Anion Gap 12 mmol/L 11/21/17 06:17 BUN 22 mg/dL (9-20) H 11/21/17 06:17 Creatinine 0.3 mg/dL (0.8-1.5) L 11/21/17 06:17 Estimated GFR > 60 ml/min 11/21/17 06:17 BUN/Creatinine Ratio 73 % 11/21/17 06:17 Glucose 135 mg/dL (75-100) H 11/21/17 06:17 Calcium 7.7 mg/dL (8.4-10.2) L 11/21/17 06:17
[2017-11-25] MEDS: PULMICORT IH SCH ×2 (08:48→19:09)
[2017-11-25] MEDS: LEVAQUIN PO SCH (10:04)
[2017-11-25] MEDS: HALFPRIN EC PO SCH (10:04)
[2017-11-25] MEDS: LASIX PO SCH (10:04)
[2017-11-25] MEDS: MIRALAX 3350 PO SCH (10:05)
[2017-11-25] MEDS: NORVASC PO SCH (10:05)
[2017-11-25] MEDS: FLONASE NS SCH (10:06)
--- NOTE | 2017-11-25 13:44 | Query-Infection ---
Dear Date:__11/25/2017 Traffic Personnel Supervisor/CDS:__Heavenlyelis Phone#:_[phone] Exercise your independent professional judgment when responding to this query. Questions asked do not imply a particular answer is desired or expected. We greatly appreciate your clarification on this issue. Clinical Documentation States: 77 Year old male was admitted on 11/18/2017 for pain located near the left testicle and right testicle. The Hospitalist (Dr. Sibley) progress note on 11/22/2017 states "S/P Partial wound dehiscence - left side of scrotum Managed by urology Wound care Levaquin 500mg#14." The H&P states "Epididymitis." Clinical findings show: (please check applicable parameters) WBC: 16.2 Temp: 99.8 ME: 98 Infection, known /suspected, with some of the following indicators; Specify the infection: 3 General parameters [ ] Fever (core temp >38.30C or 100.40F) [ ] Hypothermia (core temp <36C) [X] Heart rate >90 bpm [ ] Tachypnea: >20 bpm or pCO2 < 32 mmHg [ ] Altered mental status [ ] Significant edema / +ve fluid balance (>20 ml/kg 24 h) [ ] Hyperglycemia (Bl. glucose >110 mg/dl) w/o diabetes Inflammatory parameters [X] Leukocytosis (white blood cell count >12,000/l) [ ] Leukopenia (white blood cell count <4,000/l) [ ] Bandemia (immature WBC > 10%) [ ] Leucocyte Left Shift [ ] Plasma procalcitonin>2 SD above the normal value Hemodynamic and tissue perfusion parameters [ ] Arterial hypotension(SBP <90 mmHg, MAP <70 mmHg,or a SBP drop >40 mmHg in adults) [ ] Hyperlactatemia (>3 mmol/l) [ ] Anion Gap (> 11mEG/l) [ ] Decreased capillary refill or mottling Organ dysfunction parameters [ ] Arterial hypoxemia (PaO2/FIO2 <300) [ ] Creatinine increase =0.5 mg/dl [ ] Acute oliguria (urine output <0.5 ml | kg |h or 45 mM/l for at least 2 hrs) [ ] Coagulation abnormalities (INR >1.5 or activated partial thromboplastin time >60 s) [ ] Ileus (absent rashaad wel sounds) [ ] Thrombocytopenia (platelet count <100,000/l) [ ] Hyperbilirubinemia (plasma total bilirubin >4 mg/dl) According to the clinical indications above, can Bacteremia be further specified? If so, please indicate below and in your Progress Notes and/ or Discharge Summary. Indicate if the condition was present on admission. PHYSICIAN RESPONSE: [x ] Sepsis [ ] Severe Sepsis [ ] Septic Shock [ ] Septicemia [ ] Sepsis now resolved [ ] SIRS due to non-infectious cause with organ dysfunction [ ] SIRS due to non-infectious cause without organ dysfunction [ ] Other: [ ] Comment/Explanation: Present on Admission: [ x] Yes (Y) [ ] Clinically undeterminable (W) [ ] No (N) [ ] Ruled Out Please also document response in your Progress Notes and/or Discharge Summary and indicate if the condition was present on admission Notes: SIRS/ SIRS WITH ORGAN DYSFUNCTION Systemic inflammatory response syndrome (SIRS) generally refers to the systemic response to trauma/kline or other insult such as Acute Myocardial Infarction, Acute Pancreatitis, and Major Surgery with symptoms including fever, tachycardia , tachypnea, and leukocytosis (1). BACTEREMIA Presence of viable bacteria in the circulating blood (2). This term is reserved for patients that do not manifest above SIRS response. SEPTICEMIA Generally refers to a systemic disease associated with the presence of pathological microorganisms or toxins in the blood, which can include bacteria, viruses, fungi or other organisms (1). SEPSIS Generally refers to SIRS due infection (1). SEVERE SEPSIS Generally refers to sepsis associated with acute organ dysfunction (1). SEPTIC SHOCK Generally refers to circulatory failure associated with severe sepsis (2), and defined as hypotension or hypoperfusion despite adequate fluid resuscitation (1 hour) (3). REFERENCES: 1. [employer]/Society of Critical Care Medicine Consensus Conference. Definitions for sepsis and organ failure and guidelines for the use of innovative therapies in sepsis. Critical Care Med 1992;20:864 - 74. 2. Ulisses jansen MM, Soo MP, Dillon MALCOLM, Domenic Elizondo, Zan D, Ronni D, Cas J, Lund SM , Herman JL, Gus G; International Sepsis Definitions Conference. 2001 SCCM/ESICM/ACCP/ATS/SIS International Sepsis Definitions Conference. Intensive Care Med. 2002 Apr;29(4):530-8. Epub 2002Feb 22. Review. PubMed PMID:[id number] 3. ICD-9-CM Official Guidelines for Coding and Reporting 4. Medscape Drugs, Diseases and Procedures references 5. [employer] Textbook of Internal Medicine. 18th Edition MTDD
[2017-11-25] MEDS: HEPARIN SUB-Q SCH (17:00)
[2017-11-25] MEDS: DOLOPHINE PO SCH (17:00)
[2017-11-25] MEDS: NEURONTIN PO SCH (17:00)
[2017-11-25 21:07] VITALS: BP 133/76
== END 2017-11-25 20:50 | DRG 871 ==
LOC: UNDOADMIN 19:38 → 2B-ACE 19:38
PROVIDERS: ADMIT Internal Medicine; ATTEND Hospitalist
DX: A41.9 Sepsis, unspecified organism (principal); J96.21 Acute and chronic respiratory failure with hypoxia; T81.31XA Disruption of external operation (surgical) wound, not elsewhere classified, initial encounter; E87.1 Hypo-osmolality and hyponatremia; I50.20 Unspecified systolic (congestive) heart failure; J44.1 Chronic obstructive pulmonary disease with (acute) exacerbation; N45.1 Epididymitis; D64.9 Anemia, unspecified; I11.0 Hypertensive heart disease with heart failure; I16.0 Hypertensive urgency; Y83.8 Other surgical procedures as the cause of abnormal reaction of the patient, or of later complication, without mention of misadventure at the time of the procedure; Z88.0 Allergy status to penicillin; Z88.1 Allergy status to other antibiotic agents; Z88.2 Allergy status to sulfonamides; Z88.8 Allergy status to other drugs, medicaments and biological substances; Z79.82 Long term (current) use of aspirin; Z79.899 Other long term (current) drug therapy; Z82.49 Family history of ischemic heart disease and other diseases of the circulatory system; Y92.89 Other specified places as the place of occurrence of the external cause
CPT/HCPCS: 36415; 71010; 80048; 85007; 85025; 93005; 93010; 94640; 94760; A9270-GY; G8978-GP; G8979-GP; J1644; J1956; J2920; J2930; J7512